=== PATIENT | male | born 1955 | race Caucasian/White ===

== ENCOUNTER → 2017-10-05 | Outpatient (CLI) | payer OTHER ==
[~2017-10-05] MED LIST: DICL50TA3 PO; DICY10CA12 PO; HYDR-3763 PO; LISI-725 PO; MELO7.5T5 PO; PANT40TA PO; TRAM-10 PO
--- NOTE | 2017-10-05 09:42 | DIAGNOSTIC IMAGING REPORT ---
C-SPINE ROUTINE 4 OR 5 VIEWS CLINICAL HISTORY: CERVICALGIA. COMPARISON STUDY: No previous studies for comparison. FINDINGS: There is straightening of the normal cervical lordosis. There is moderate disc space narrowing and osteophytosis at C3-C4. There is mild disc space narrowing at C4-C5. Mild multilevel facet arthrosis is present. Multilevel bony neural foraminal narrowing is most pronounced at the left C3-C4 and C4-C5 neural foramen. No fracture or suspicious lesion is present. IMPRESSION: 1. Moderate degenerative disc disease at C3-C4 and mild degenerative disc disease at C4-C5. 2. Multilevel bony neural foraminal narrowing, most pronounced at the left C3-C4 and C4-C5 neural foramen. Electronically signed by: Ad Lyle M.D. 10/05/2017 9:41 AM Dictated Date/Time: 10/05/2017 9:39 AM
== END | disposition home or self-care (01) ==
LOC: C.RADBC 08:53
PROVIDERS: ATTEND Physician Assistant Medical
DX: M54.2 Cervicalgia (principal); M50.31 Other cervical disc degeneration, high cervical region; M50.321 Other cervical disc degeneration at C4-C5 level; M47.812 Spondylosis without myelopathy or radiculopathy, cervical region

== ENCOUNTER → 2017-12-13 | Day surgery (SDC) | payer OTHER ==
[2017-12-02 12:10] VITALS: Ht 185.4 cm; Wt 86.4 kg
[~2017-12-13] VITALS: Ht 185.4 cm; Wt 86.4 kg
[~2017-12-13] MED LIST changes: -HYDR-3763 PO; +HYDR-4079 PO; +LIDOCAINE HCL 2% 2 ML VIAL (20MG/ML) ONE; -LISI-725 PO; +LSN/2025 PO; -MELO7.5T5 PO; +PRAM0.259 PO; +PROPOFOL IV EMULSION 10 MG/ML 20 ML VIAL IV ONE; +SODIUM CHLORIDE 0.9% 500ML 500 ML IV ONE
--- NOTE | 2017-12-13 08:43 | Endo History and Physical ---
History & Physical Date of Service: Dec 13, 2017. Chief Complaint: HISTORY OF POLYPS-1 YR FOLLOW UP Referring Physician: DR GAUTHIER History of Present Illness 62 yo CM who presents for colonoscopy secondary to history of colon polyps. Past Medical History Arthritis, Reflux, Hypertension Past Surgical History Hx Cardiac Surgery: No Hx Internal Defibrillator: No Hx Pacemaker: No Hx Abdominal Surgery: Yes (INGUINAL HERNIA REPAIR) Hx of Implantable Prosthesis: No Hx Post-Op Nausea and Vomiting: No Hx Cancer Surgery: No Hx Thoracic Surgery: No Hx Orthopedic: Yes (RT KNEE SURGERY) Hx Urinary Tract Surgery: No Family History Colon CA Social History Smoking Status: Current Some Day Smoker Hx Substance Use: No Hx Alcohol Use: Yes (OCCASIONAL) Allergies Coded Allergies: No Known Allergies (Unverified , 12/13/17) Current Medications Reported Home Medications Medications Dose Route/Sig Max Daily Dose Days Date Category Dose Instructions Pramipexole Dihydrochlori (Pramipexole Dihydrochloride) 0.25 Mg Tab 2 Tabs PO HS 12/02/17 Reported Lisinopril/Hctz 20/25 Mg (HCTZ/Lisinopril) 1 Ea Tab 1 Tab PO QAM 12/02/17 Reported [place] 10MG/325MG (Acetaminophen/Hydrocodone Bitart) Tab 1 Tab PO QAM 12/02/17 Reported PRN PAIN Dicyclomine Hcl 10 Mg Cap 1 Cap PO QAM 11/24/16 Reported Protonix (Pantoprazole Sodium) 40 Mg Tab 40 Mg PO QAM 11/24/16 Reported Voltaren (Diclofenac Sodium) 50 Mg Tabec 50 Mg PO QAM 11/24/16 Reported Ultram (Tramadol HCl) 50 Mg Tab 1 Tab PO BID 11/24/16 Reported Vital Signs Weight (Kilograms): 86.36 Height (Feet): 6 Height (Inches): 1 Date Time Temp Pulse Resp B/P (MAP) Pulse Ox O2 Delivery O2 Flow Rate FiO2 12/13/17 08:32 36.5 77 20 138/98 (111) 96 Room Air Physical Exam General Appearance: WD/WN, no apparent distress Respiratory/Chest: Auscultation: breath sounds normal Cardiovascular: Heart Auscultation: RRR Abdomen: Bowel Sounds: normal Inspection & Palpation: soft, non-distended, no tenderness, guarding & rebound Assessment and Plan Assessment: 62 yo CM who presents for colonoscopy secondary to history of colon polyps. Plan: Proceed with colonoscopy.
--- NOTE | 2017-12-13 09:37 | GI REPORT ---
Procedure Date: 12/13/2017 9:00 AM Procedure: Colonoscopy Indications: High risk colon cancer surveillance: Personal history of colonic polyps Medicines: Monitored Anesthesia Care Complications: No immediate complications. Estimated Blood Loss: Estimated blood loss: none. Procedure: Pre-Anesthesia Assessment: - Prior to the procedure, a History and Physical was performed, and patient medications and allergies were reviewed. The patient's tolerance of previous anesthesia was also reviewed. The risks and benefits of the procedure and the sedation options and risks were discussed with the patient. All questions were answered, and informed consent was obtained. Prior Anticoagulants: The patient has taken no previous anticoagulant or antiplatelet agents. ASA Grade Assessment: II - A patient with mild systemic disease. After reviewing the risks and benefits, the patient was deemed in satisfactory condition to undergo the procedure. After I obtained informed consent, the scope was passed under direct vision. Throughout the procedure, the patient's blood pressure, pulse, and oxygen saturations were monitored continuously. The scope was introduced through the anus and advanced to the terminal ileum. The colonoscopy was performed without difficulty. The patient tolerated the procedure well. The quality of the bowel preparation was good. The terminal ileum, ileocecal valve, appendiceal orifice, and rectum were photographed. Findings: The perianal and digital rectal examinations were normal. A 4 mm polyp was found in the ascending colon. The polyp was sessile and located at margin of scar from prior polypectomy site. The polyp was removed with a hot snare. Resection and retrieval were complete. Non-bleeding internal hemorrhoids were found during retroflexion. The hemorrhoids were small. Impression: - One 4 mm polyp in the ascending colon, removed with a hot snare. Resected and retrieved. - Non-bleeding internal hemorrhoids. Recommendation: - Resume previous diet. - Continue present medications. - Repeat colonoscopy for surveillance based on pathology results. - Return to primary care physician as previously scheduled. Abdi Santamaria, 12/13/2017 9:37:37 AM This report has been signed electronically. Note Initiated On: 12/13/2017 9:00 AM I attest to the content of the Intraoperative Record and orders documented therein, exceptions below
--- NOTE | 2017-12-13 09:44 | Anesthesiology Progress Note ---
Anesthesia Post Op Note Date & Time Dec 13, 2017 at 09:44 Vital Signs Pain Intensity: 0 Vital Signs Past 12 Hours Date Time Temp Pulse Resp B/P (MAP) Pulse Ox O2 Delivery O2 Flow Rate FiO2 12/13/17 09:32 87 16 125/77 (93) 97 Room Air 12/13/17 08:32 36.5 77 20 138/98 (111) 96 Room Air Notes Mental Status: alert / awake / arousable, participated in evaluation Pt Amnestic to Procedure: Yes Nausea / Vomiting: adequately controlled Pain: adequately controlled Airway Patency, RR, SpO2: stable & adequate BP & HR: stable & adequate Hydration State: stable & adequate Anesthetic Complications: no major complications apparent
--- NOTE | 2017-12-13 09:45 | Discharge Instructions ---
Endoscopy Patient Instructions Date / Procedure(s) Performed Dec 13, 2017. Colonoscopy Allergy Information Coded Allergies: No Known Allergies (Unverified , 12/13/17) Discharge Date / Findings Dec 13, 2017. Colon polyp Internal hemorrhoids Medication Instructions OK to resume all medication today as prescribed Reported Home Medications Medications Dose Route/Sig Max Daily Dose Days Date Category Dose Instructions Pramipexole Dihydrochlori (Pramipexole Dihydrochloride) 0.25 Mg Tab 2 Tabs PO HS 12/02/17 Reported Lisinopril/Hctz 20/25 Mg (HCTZ/Lisinopril) 1 Ea Tab 1 Tab PO QAM 12/02/17 Reported [place] 10MG/325MG (Acetaminophen/Hydrocodone Bitart) Tab 1 Tab PO QAM 12/02/17 Reported PRN PAIN Dicyclomine Hcl 10 Mg Cap 1 Cap PO QAM 11/24/16 Reported Protonix (Pantoprazole Sodium) 40 Mg Tab 40 Mg PO QAM 11/24/16 Reported Voltaren (Diclofenac Sodium) 50 Mg Tabec 50 Mg PO QAM 11/24/16 Reported Ultram (Tramadol HCl) 50 Mg Tab 1 Tab PO BID 11/24/16 Reported Provider Instructions Activity Restrictions - No exercising or heavy lifting for 24 hours. - Do not drink alcohol the day of the procedure. - Do not drive a car or operate machinery until the day after the procedure. - Do not make any important decisions or sign important papers in 24 hours after the procedure. Following Day: - Return to full activity which may include returning to work/school. Diet Start your diet with liquids and light foods (jello, soup, juice, toast). Then eat your usual diet if not nauseated. Treatment For Common After Affects For mild abdominal pain, bloating, or excessive gas: - Rest - Eat lightly - Lie on right side Follow-Up Information Follow-up with DR GAUTHIER as scheduled Anesthesia Information What You Should Know You have had a procedure that required some medicine to reduce anxiety and discomfort. This treatment is called moderate sedation. After receiving the treatment, you may be sleepy, but you will be able to breathe on your own. The effects of the treatment may last for several hours. Follow these instructions along with Activity/Diet recommendations noted above: * Do NOT do anything where dizziness or clumsiness would be dangerous. * Rest quietly at home today, then you can be up and about tomorrow. * Have a responsible person stay with you the rest of today. * You may have had an I.V. today. If so, you may take the dressing off later today. Recommendations Call your doctor if: * Trouble breathing * Continuous vomiting for more than 24 hours * Temperature above 101 degrees * Severe abdominal pain or bloating * Pain not relieved by pain medicine ordered * There is increased drainage or redness from any incision * A large amount of rectal bleeding greater than 2-3 tablespoons. (If you had a polyp/s removed or have hemorrhoids, a small amount of blood - from the rectum is to be expected.) * You have any unanswered questions or concerns. IN THE EVENT OF A SERIOUS EMERGENCY, GO TO THE NEAREST EMERGENCY ROOM Your discharge instructions were prepared by provider Abdi Santamaria. Patient Instructions Signature Page Norm Cool Patient (or Guardian) Signature/Date: I have read and understand the instructions given to me by my caregivers. Caregiver/RN/Doctor Signature/Date: The above-named patient and/or guardian has received patient instructions on this date. + Original Patient Signature Page (only) stays with chart. Please make copy for patient.
[2017-12-13 10:02] VITALS: BP 140/96; PULSE 69; O2SAT 98
== END | disposition home or self-care (01) ==
LOC: C.GI 08:12
PROVIDERS: ATTEND Internal Medicine
DX: Z12.11 Encounter for screening for malignant neoplasm of colon (principal); D12.2 Benign neoplasm of ascending colon; K64.8 Other hemorrhoids; Z86.010 Personal history of colon polyps; F17.200 Nicotine dependence, unspecified, uncomplicated; M19.90 Unspecified osteoarthritis, unspecified site; K21.9 Gastro-esophageal reflux disease without esophagitis; I10 Essential (primary) hypertension; Z80.0 Family history of malignant neoplasm of digestive organs; Z79.899 Other long term (current) drug therapy

== ENCOUNTER → 2018-01-10 | Outpatient (CLI) | payer OTHER ==
[~2018-01-10] MED LIST changes: -LIDOCAINE HCL 2% 2 ML VIAL (20MG/ML) ONE; -PROPOFOL IV EMULSION 10 MG/ML 20 ML VIAL IV ONE; -SODIUM CHLORIDE 0.9% 500ML 500 ML IV ONE
== END | disposition home or self-care (01) ==
LOC: C.LABSPEC 16:00
PROVIDERS: ATTEND Physician Assistant
DX: R21 Rash and other nonspecific skin eruption (principal); B35.1 Tinea unguium

== ENCOUNTER → 2018-01-18 | Outpatient (CLI) | payer OTHER ==
--- NOTE | 2018-01-18 17:46 | DIAGNOSTIC IMAGING REPORT ---
CERVICAL SPINE MRI HISTORY: CERVICAL RADICULOPATHY TECHNIQUE: Multiplanar multisequence MRI of the cervical spine was performed without the use of contrast. COMPARISON STUDY: Cervical spine 10/05/2017. FINDINGS: Straightening of the cervical spine. 2 mm of retrolisthesis of C3 on C4. Moderate disc space narrowing at C3-C4. Mild disc space narrowing at C4-C5. Vertebral soft tissues and the C1-C2 interval are intact. No fractures within the cervical spine. The visualized posterior fossa is unremarkable. Cervical spinal cord demonstrates a normal signal intensity. C2-C3: No significant central canal or neural foraminal narrowing. C3-C4: Broad-based posterior disc bulge resulting in moderate anterior cord deformity with moderate central canal narrowing. There is also severe left and moderate right neural foraminal narrowing due to the uncovertebral hypertrophy. C4-C5: Small broad-based posterior disc bulge which abuts and slightly deforms anterior cord. There is moderate right and severe left neural foraminal narrowing due to the uncovertebral and facet hypertrophy. C5-C6: Tiny broad-based posterior disc bulge resulting in partial effacement of the anterior thecal sac without cord deformity. No neural foraminal narrowing. C6-C7: No significant central canal or neural foraminal narrowing. C7-T1: No significant central canal or neural foraminal narrowing. IMPRESSION: 1. Moderate central canal narrowing at C3-C4 due to a broad-based posterior disc bulge. This results in moderate cord deformity and severe left and moderate right neural foraminal narrowing. 2. Mild central canal narrowing at C4-C5 with severe left and moderate right neural foraminal narrowing. 3. There is 2 mm of retrolisthesis of C3 on C4. Electronically signed by: Manoj Wilkerson M.D. 01/18/2018 5:45 PM Dictated Date/Time: 01/18/2018 5:35 PM
== END | disposition home or self-care (01) ==
LOC: C.MRIBC 16:21
PROVIDERS: ATTEND Physician Assistant Medical
DX: M54.12 Radiculopathy, cervical region (principal)

== ENCOUNTER 2021-04-02 06:08 | Inpatient (IN) ==
--- NOTE | 2021-03-18 11:45 | PAT Medication Instructions ---
Medication Instructions Date of Service March 18, 2021 Home Medications Medication Instructions Recorded econazole 1 % topical cream 1 appln TOP BID #85 gm 06/10/20 diclofenac sodium 50 mg See Rx Instructions .ROUTE 12/30/20 tablet,delayed release .COMPLEX #60 tab tramadol 50 mg tablet See Rx Instructions .ROUTE 01/23/21 .COMPLEX #90 tab hydrocodone 10 mg-acetaminophen 1 tab PO BID PRN #60 tab 03/14/21 325 mg tablet econazole 1 % topical cream 1 appln TOP BID diclofenac sodium 50 mg tablet,delayed release See Rx Instructions .ROUTE .COMPLEX tramadol 50 mg tablet See Rx Instructions .ROUTE .COMPLEX dicyclomine 10 mg PO QAM finasteride [Proscar] 5 mg PO QAM ketoconazole 1 applic TOPICAL DAILY PRN lisinopril-hydrochlorothiazide 1 tab PO QAM omeprazole 20 mg PO QAM pramipexole 0.25 mg PO HS PRN hydrocodone 10 mg-acetaminophen 325 mg tablet 1 tab PO BID PRN ASK your surgeon for instructions diclofenac sodium 50 mg tablet,delayed release See Rx Instructions .ROUTE .COMPLEX STOP taking 24 hours before surgery econazole 1 % topical cream 1 appln TOP BID ketoconazole 1 applic TOPICAL DAILY PRN DO NOT take the morning of surgery dicyclomine 10 mg PO QAM lisinopril-hydrochlorothiazide 1 tab PO QAM Take morning of surgery With a small sip of water, OTHERWISE NOTHING TO EAT OR DRINK AFTER MIDNIGHT: tramadol 50 mg tablet See Rx Instructions .ROUTE .COMPLEX (okay to take up to 4 hours prior to surgery if needed) finasteride [Proscar] 5 mg PO QAM omeprazole 20 mg PO QAM hydrocodone 10 mg-acetaminophen 325 mg tablet 1 tab PO BID PRN (okay to take up to 4 hours prior to surgery if needed) Take evening before surgery tramadol 50 mg tablet See Rx Instructions .ROUTE .COMPLEX (if needed) pramipexole 0.25 mg PO HS PRN (if needed) hydrocodone 10 mg-acetaminophen 325 mg tablet 1 tab PO BID PRN (if needed) Other Notes If you have any questions please call us at [phone] or [phone] or [phone] or [phone]
--- NOTE | 2021-03-19 10:45 | Anesthesiology Consultation ---
Date of Service March 19, 2021 Assessment & Plan (1) Encounter for pre-operative examination: - COVID screening: Per assessment on 03/19: Travel screen negative, no known COVID-19 positive contacts or current COVID-19 related symptoms. Surgeon arranging preop COVID testing. Awaiting results. - Hx glidescope intubation: C3-C4 ACDF with left iliac crest bone graft (05/23/18): Grade 2 view, Glidescope #4.0, ETT 8.0 at [facility] Chart Review Chart Review: Acceptable Risk for Surgery (pending surgeon-ordered PCP clearance) and Patient seen in Pre Admission Testing Teaching & Discussion Pre-Anesthesia Teaching/Discussion Notes: Instructed NPO after midnight before surgery,except medications with 15 cc of water. Medication instructions provided according to the PAT guidelines. History Surgery Operation Date: 04/02/21 07:45 Proposed Procedures p Spine: L3-L4 Decompession/Fusion;Spinal Cord Monitoring - Logan Arshad DO Height/Weight Height: 6 ft Weight: 82.5 kg Allergies Allergy/AdvReac Type Severity Reaction Status Date / Time No Known Drug Allergies Allergy Verified 03/07/21 11:33 Medications Home Medications Medication Instructions Recorded Confirmed Last Taken econazole 1 % topical cream 1 appln TOP BID #85 gm 06/10/20 03/07/21 Unknown diclofenac sodium 50 mg See Rx Instructions .ROUTE 12/30/20 03/07/21 Unknown tablet,delayed release .COMPLEX #60 tab tramadol 50 mg tablet See Rx Instructions .ROUTE 01/23/21 03/07/21 Unknown .COMPLEX #90 tab dicyclomine 10 mg PO QAM 03/07/21 03/07/21 Unknown finasteride [Proscar] 5 mg PO QAM 03/07/21 03/07/21 Unknown ketoconazole 1 applic TOPICAL DAILY PRN 03/07/21 03/07/21 Unknown lisinopril-hydrochlorothiazide 1 tab PO QAM 03/07/21 03/07/21 Unknown omeprazole 20 mg PO QAM 03/07/21 03/07/21 Unknown pramipexole 0.25 mg PO HS PRN 03/07/21 03/07/21 Unknown hydrocodone 10 mg-acetaminophen 1 tab PO BID PRN #60 tab 03/14/21 Unknown 325 mg tablet Past Medical History Medical History Cervical disc disease GERD (gastroesophageal reflux disease) controlled Hiatal hernia Hypertension Internal hemorrhoids Lumbar radiculitis Lumbar spinal stenosis Osteoarthritis Seborrheic dermatitis Seborrheic keratosis Sleep apnea CPAP Exercise / Class Metabolic Activity II 4-5 Yardwork/Stairs/Walk up hill Past Family History Family History Aunt Family history of diabetes mellitus Uncle Family history of diabetes mellitus Grandmother (Paternal) Family history of diabetes mellitus Grandfather (Paternal) Family history of diabetes mellitus Father Family history of diabetes mellitus Past Surgical History Surgical History History of herniorrhaphy Hx of colonoscopy S/P arthroscopic knee surgery Status post cervical spinal fusion C3-C4 ACDF with left iliac crest bone graft (05/23/18): Grade 2 view, Glidescope #4.0, ETT 8.0 at [facility] Past Anesthesia History Difficult Airway (C3-C4 ACDF with left iliac crest bone graft (05/23/18): Grade 2 view, Glidescope #4.0, ETT 8.0 at [facility]) and No Family Hx of Anesthesia Co mplications History of PONV No Hx of PONV and No Hx of Motion Sickness Social History Smoking Status: Current every day smoker Smoking cigarettes per day: 10 cigs/day (intermittent x 30 years) Do You Dip or Chew Tobacco: No Hx Alcohol Use: No Hx Substance Use: No Review of Systems Patient denies chest pain, shortness of breath, dyspnea on exertion, fever, chills, cough, wheezing, palpitations. Physical Exam Vital Signs VITALS BP 127/74 P 72 TEMP 98.3 SP02 96%RA RESP 16 PHYSICAL Significantly decreased cervical extension range of motion. Full TMJ range of motion. TMD 2.5 finger breaths Mallampati Score 2 Dentition: several missing sides/molars Lungs: clear throughout to auscultation Cardiac: regular rate and rhythm, no murmurs noted Spine: normal Carotid arteries: negative bruit Extremities: no edema Testing Laboratory Results 03/19/21 11:06 03/19/21 11:06 PT 10.3 Seconds (9.0-12.0) 03/19/21 11:06 INR 1.0 (0.9-1.1) 03/19/21 11:06 APTT 27.5 Seconds (21.0-31.0) 03/19/21 11:06 Urine Color Yellow 03/19/21 08:27 Urine Appearance Clear (Clear) 03/19/21 08:27 Urine pH 7.0 (4.5-7.5) 03/19/21 08:27 Ur Specific [place] 1.020 (1.000-1.030) 03/19/21 08:27 Urine Protein Negative (Negative) 03/19/21 08:27 Urine Glucose (UA) Negative (Negative) 03/19/21 08:27 Urine Ketones Trace (Negative) H 03/19/21 08:27 Urine Nitrite Negative (Negative) 03/19/21 08:27 Ur Leukocyte Esterase Negative (Negative) 03/19/21 08:27 Urine RBC 5-10 /hpf (0-4) H 03/19/21 08:27 Urine WBC 0-5 /hpf (0-5) 03/19/21 08:27 Ur Epithelial Cells 0-5 /lpf (0-5) 03/19/21 08:27 Blood Type O Positive 03/19/21 11:06 Antibody Screen NEGATIVE 03/19/21 11:06 Electrocardiogram Date: 03/19/21 Normal sinus rhythm at 62 bpm. Incomplete right bundle branch block. LAFB. No significant change compared to 05/11/2018 per cutting inspector review. Patient r eports good functional status and no cardiopulmonary complaints visit at PAT visit from same day. Chest X-Ray Date: 03/19/21 FINDINGS: PA and lateral chest radiographs are compared to study dated 05/11/2018. The is mildly enlarged. The pulmonary vasculature is noncongested. Emphysematous change and chronic interstitial thickening is similar to previous. No airspace consolidation or pleural effusion is identified. There is no pneumothorax. The bony thorax appears intact. IMPRESSION: Mild cardiomegaly and emphysema with no active disease in the chest.
[2021-03-19 11:37] LABS: Basophils # (auto) 0.03 K/uL (0-0.2); Basophils % (auto) 0.5 %; Eosinophils # (auto) 0.15 K/uL (0-0.5); Eosinophils % (auto) 2.3 %; Hematocrit (blood only) 39.6 % (42-52); Hemoglobin 14.1 g/dL (14.0-18.0); Immature Granulocytes # (auto) 0.01 K/uL (0.00-0.02); Immature Granulocytes % (auto) 0.2 %; Lymphocytes # (auto) 1.92 K/uL (1.2-3.4); Lymphocytes % (auto) 29.8 %; Mean Corpuscular Hemoglobin 31.3 pg (25-34); Mean Corpuscular Hgb Conc 35.6 g/dL (32-36); Mean Platelet Volume 10.8 fL (7.4-10.4); Monocytes # (auto) 0.48 K/uL (0.11-0.59); Monocytes % (auto) 7.5 %; Neutrophils # (auto) 3.85 K/uL (1.4-6.5); Neutrophils % (auto) 59.7 %; Platelet Count 169 K/uL (130-400); RDW Coefficient of Variation 12.8 % (11.5-14.5); RDW Standard Deviation 41.4 fL (36.4-46.3); White Blood Count 6.44 K/uL (4.8-10.8)
[2021-03-19 11:49] LABS: Partial Thromboplastin Time 27.5 Seconds (21.0-31.0); Prothrombin Time 10.3 Seconds (9.0-12.0)
--- NOTE | 2021-03-19 11:59 | XRay Report ---
TWO VIEW CHEST CLINICAL HISTORY: Preoperative examination. Smoking history. FINDINGS: PA and lateral chest radiographs are compared to study dated 05/11/2018. The is mildly enlar ged. The pulmonary vasculature is noncongested. Emphysematous change and chronic interstitial thicken ing is similar to previous. No airspace consolidation or pleural effusion is identified. There is no pneumothorax. The bony thorax appears intact. IMPRESSION: Cardiomegaly and emphysema with no active disease in the chest. ACT 112: Negative or not required by law. Electronically signed by: Lg [place] M.D. 03/19/2021 11:57 AM
--- NOTE | 2021-03-19 12:58 | Electrocardiogram Report ---
Test Reason : Blood Pressure : / mmHG Vent. Rate : 062 BPM Atrial Rate : 062 BPM P-R Int : 204 ms QRS Dur : 112 ms QT Int : 418 ms P-R-T Axes : 067 -67 044 degrees QTc Int : 424 ms Normal sinus rhythm Incomplete right bundle branch block Left anterior fascicular block Abnormal ECG When compared with ECG of 11-MAY-2018 16:47, No significant change was found Confirmed by Jacob Soto ([id number]) on 03/19/2021 12:58:08 PM Referred By: Logan Arshad Confirmed By:Edwardo Soto
[2021-03-19 13:20] LABS: BUN Creatinine Ratio 18.9 (10-20); Calcium 8.8 mg/dl (8.5-10.1); Creatinine Clr Calc Pharmacy 85.1 ml/min; Est GFR (Non-African American) 83.7 ml/min
[2021-03-19 13:30] LABS: Appearance Urine Clear (Clear); Bilirubin Urine Negative (Negative); Blood Urine 1+ (Negative); Color Urine Yellow; Glucose Urine UA Negative (Negative); Ketones Urine Trace (Negative); Leukocyte Esterase Urine Negative (Negative); Nitrite Urine Negative (Negative); Protein Urine Negative (Negative); Urobilinogen Urine Negative (Negative)
[2021-03-19 13:53] LABS: Bacteria Urine 1+ (Negative); Epithelial Cell Urine 0-5 /lpf (0-5); WBC Urine 0-5 /hpf (0-5)
[~2021-04-02 06:08] MED LIST changes: +ACETAMINOPHEN 500 MG TAB PO SCH; +CeleBREX 200 MG CAP PO SCH; -DICL50TA3 PO; -DICY10CA12 PO; +GABAPENTIN 300 MG CAP PO SCH; -HYDR-4079 PO; +LR 15ML/HR IV SCH; -LSN/2025 PO; -PANT40TA PO; -PRAM0.259 PO; -TRAM-10 PO; +ceFAZolin 2000MG 2,000 MG/15 ML SYR IV SCH
[2021-04-02] MEDS ORDERED: BUPIVACAINE/EPINEPHRINE 0.5% MPF 1:200,000 30 ML VIAL ONE (06:53)
[2021-04-02] MEDS ORDERED: MIDAZOLAM HCL 1 MG/ML 2ML VIAL ONE (06:59)
[2021-04-02] MEDS ORDERED: fentaNYL citrate 100 MCG/2 ML VIAL ONE (07:00)
[2021-04-02] MEDS ORDERED: HYDROmorphone INJ 2 MG/ML SYR/VIAL ONE (07:04)
[2021-04-02] MEDS ORDERED: DEXAMETHASONE SOD INJ 4 MG/ML VIAL ONE ×2 (07:05→08:11)
[2021-04-02] MEDS ORDERED: ONDANSETRON INJ 2 MG/ML 2 ML VIAL ONE (07:07)
[2021-04-02] MEDS ORDERED: ROCURONIUM BROMIDE 10 MG/ML 5 ML VIAL IV ONE ×3 (07:07→08:15)
[2021-04-02] MEDS ORDERED: ACETAMINOPHEN 1000 MG/100 ML IV IV ONE (07:09)
--- NOTE | 2021-04-02 07:36 | History & Physical Bridge Note ---
Date of Service April 02, 2021 History & Physical Bridge Note I have examined the patient, reviewed the History & Physical and in the interval since the performance of the History & Physical I have noted the following changes of clinical significance: no changes noted
--- NOTE | 2021-04-02 07:37 | History & Physical Report ---
Date of Service April 02, 2021 Assessment & Plan (1) Lumbar spinal stenosis: Admission and Anticipated Discharge Date Admission Date: L3-L4 decompression fusion History of Present Illness Chief Complaint: Back and leg pain Primary Care Provider: Burtno Nolasco MD This is a 65-year-old male presents with chronic persistent back and leg pain. Failing extensive course of nonoperative care is here for surgical invention. Allergies Allergy/AdvReac Type Severity Reaction Status Date / Time No Known Drug Allergies Allergy Verified 04/02/21 07:01 Home Medications Medication Instructions Recorded Confirmed Type econazole 1 % topical cream 1 appln TOP BID #85 gm 06/10/20 04/02/21 Rx diclofenac sodium 50 mg See Rx Instructions .ROUTE 12/30/20 04/02/21 Rx tablet,delayed release .COMPLEX #60 tab tramadol 50 mg tablet See Rx Instructions .ROUTE 01/23/21 04/02/21 Rx .COMPLEX #90 tab dicyclomine 10 mg PO QAM 03/07/21 04/02/21 History finasteride [Proscar] 5 mg PO QAM 03/07/21 04/02/21 History ketoconazole 1 applic TOPICAL DAILY PRN 03/07/21 04/02/21 History lisinopril-hydrochlorothiazide 1 tab PO QAM 03/07/21 04/02/21 History [Zestoretic] omeprazole 20 mg PO QAM 03/07/21 04/02/21 History pramipexole [Mirapex] 0.25 mg PO HS PRN 03/07/21 04/02/21 History hydrocodone 10 mg-acetaminophen 1 tab PO BID PRN #60 tab 03/14/21 04/02/21 Rx 325 mg tablet ofloxacin 0.3 % ear drops 5 drp OTIC (EAR) BID 10 Days #10 ml 03/24/21 04/02/21 Rx Tums 1 tab PO DAILY 04/02/21 04/02/21 History Past Med/Surg History Medical History Cervical disc disease GERD (gastroesophageal reflux disease) Hiatal hernia Hypertension Internal hemorrhoids Lumbar radiculitis Lumbar spinal stenosis Osteoarthritis Seborrheic dermatitis Seborrheic keratosis Sleep apnea Surgical History History of herniorrhaphy Hx of colonoscopy S/P arthroscopic knee surgery Status post cervical spinal fusion Family History Aunt Family history of diabetes mellitus Uncle Family history of diabetes mellitus Grandmother (Paternal) Family history of diabetes mellitus Grandfather (Paternal) Family history of diabetes mellitus Father Family history of diabetes mellitus Social History Smoking Status: Current every day smoker Cigarettes Per Day: 10 cigs/day (intermittent x 30 years); Second Hand Exposure: Yes (FAMILY ALL SMOKED); Do You Dip or Chew Tobacco: No; Hx Alcohol Use: No Hx Substance Use: No Preferred Language: Micronesian Communication Ability: Effective Utility Technician Required: No Beliefs That Will Affect Care: None marital status: Current Living Situation: Spouse current occupational status: employed Other Information That Helps Us Care for You: No Feels Safe at Home: Yes Safety Concerns: Feels Safe At This Time Assistive Devices: CPAP and Glasses Physical Exam Physical Exam: Patient is alert and oriented Heart regular in rhythm Lungs clear to auscultation Results & Data ([facility]) Vital Signs (Past 12 Hours) Vital Signs Temp Pulse Resp BP Pulse Ox 04/02/21 07:11 36.7 C 72 20 165/97 H 97
[2021-04-02] MEDS ORDERED: ePHEDrine sulfate 50 MG/ML AMP IV PRN (07:38)
[2021-04-02] MEDS ORDERED: PROMETHAZINE HCL 12.5 MG in SODIUM CHLORIDE 0.9% 50 ML IV PRN ×2 (07:38→11:31)
[2021-04-02] MEDS ORDERED: METOCLOPRAMIDE HCL INJ 5 MG/ML 2 ML VIAL IV PRN ×2 (07:38→11:31)
[2021-04-02] MEDS ORDERED: ONDANSETRON INJ 2 MG/ML 2 ML VIAL IV PRN ×2 (07:38→11:31)
[2021-04-02] MEDS ORDERED: ATROPINE SULFATE 0.1 MG/ML 10ML SYR IV PRN (07:38)
[2021-04-02] MEDS ORDERED: WATER, STERILE FOR INJ 10 ML VIAL ONE (08:17)
[2021-04-02] MEDS ORDERED: PHENYLEPHRINE 100MCG/ML 5ML SYR ONE (08:26)
[2021-04-02] MEDS ORDERED: KETOROLAC 30 MG/ML VIAL ONE (09:01)
[2021-04-02] MEDS ORDERED: NEOSTIGMINE METHYLSULFATE 1 MG/ML 10ML VIAL ONE (09:01)
[2021-04-02] MEDS ORDERED: GLYCOPYRROLATE 0.2 MG/ML VIAL ONE (09:01)
[2021-04-02] MEDS ORDERED: FLOSEAL HEMOSTATIC MATRIX 10ML TOP ONE (09:24)
--- NOTE | 2021-04-02 09:35 | Operative Report ---
Post Operative Report Pre & Post Diagnosis Operation Date: 04/02/21 07:45 Pre-Op Diagnosis: Lumbar spinal stenosis Post-Op Diagnosis: Lumbar spinal stenosis I identified the patient and participated in the time-out.: Yes Procedure Operation Date: 04/02/21 07:45 Actual Procedures #1 lumbar decompression with bilateral medial facetectomies and foraminotomies L2-3 and L3-4. #2 posterior spinal fusion L3-L4. #3 placed posterior instrumentation L3-L4. #4 interbody fusion L3-L4. #5 placement peek cage 10 x 26 mm L3-L4. #6 placement locally harvested morselized autograft in the posterior lateral gutters. #7 placement of I factor and vitoss in the interbody space and posterior lateral gutters. Surgeon Logan Arshad DO Draw In Hand Bhakti Dumont Estimated Blood Loss 200 Findings Consistent with Post-Op Diagnosis Specimens None Indications This is a 65-year-old male who presents with above-mentioned diagnosis after failing course of nonoperative care is here for surgical invention. Description of Procedure Patient was met with identified informed consent obtained. Patient was then taken to the operative suite underwent an patient placed in a prone position the Neri table atop Tigre frame. All bony prominences well-padded eyes inspected to ensure no external pressure placed upon them. This point the lumbar spine was prepped and draped in normal sterile fashion. Sharp dissection with the assistance of Bovie cautery was performed down to and exposing the la mehdi and transverse processes of L3-L4 bilaterally. From caudal to cephalad fashion complete laminectomy of L3 partial laminectomy of L2 was performed including bilateral medial facetectomies and foraminotomies. There is severe stenosis on the L3-4 level on the left with marked disc material out into the foramen. This was removed in its entirety. Pedicle screws were then placed in all 3 L4 bilaterally with assistance of fluoroscopy and the proper sized sandeep placed. By way of a transforaminal portion left complete discectomy was performed endplates curetted to subcortically bone and a 10 x 26 mm peek cage filled with I factor tapped in position. The rods were then locked in final position bilaterally. The transverse processes of L3 and L4 burred to subcortical leading bone. Infuse collagen sponge master graft and local autograft was placed in the posterior lateral gutters. 15 round TRISHA drain inserted. The incision was then closed with 1 Vicryl in the fascia 2-0 Vicryl subcutaneously and 4 Monocryl for final skin closure. Steri-Strip sterile dressings placed. Patient will continue PACU stable condition. Please note spinal cord monitoring was utilized at the procedure no changes noted. Lastly Bhakti Dumont was present at the entire surgery involved the patient positioning complex portions of the surgery and final skin closure. I attest to the content of the Intraoperative Record and any orders documented therein. Any exceptions are noted below.
[2021-04-02] MEDS ORDERED: MEPERIDINE HCL 50 MG/ML CARP ONE (09:50)
[2021-04-02] MEDS: fentaNYL citrate 100 MCG/2 ML VIAL IV PRN ×4 (10:01→10:25)
--- NOTE | 2021-04-02 10:19 | Fluoroscopy Report ---
FL lumbar spine 2-3V HISTORY: 65 years-old Male L3-L4 Decompression/Fusion COMPARISON: Lumbar spine MRI 10/23/2020 TECHNIQUE: 2 spot fluoroscopic images of the lumbar spine were obtained utilizing 23.3 seconds fluoro scopy time FINDINGS: Laminectomy with posterior interbody sandeep and screw fusion and discectomy of the mid lumbar spine, exa ct numbering is not definitive secondary to magnification of the images. The study is labeled that th e surgery was performed at the L3-L4 level. The hardware appears intact. Multilevel intervertebral di sc space narrowing with spondylitic spurring. IMPRESSION: Fluoroscopic assistance as above. ACT 112: Negative or not required by law. The above report was generated using voice recognition software. It may contain grammatical, syntax o r spelling errors. Electronically signed by: Calderon Reynolds M.D. 04/02/2021 10:18 AM
[2021-04-02] MEDS: HYDROmorphone INJ 2 MG/ML SYR/VIAL IV PRN ×4 (10:30→10:50)
[2021-04-02] MEDS ORDERED: MEPERIDINE HCL 25 MG/ML CARP/VIAL IV PRN (10:53)
[2021-04-02] MEDS ORDERED: PRAMIPEXOLE DIHYDROCHLO 0.25 MG TAB PO PRN (11:31)
[2021-04-02] MEDS ORDERED: DO NOT ADMINISTER FLU VACCINE PRN (11:31)
[2021-04-02] MEDS ORDERED: HYDROmorphone INJ 0.5 MG/0.5 ML SYR IV PRN (11:31)
[2021-04-02] MEDS ORDERED: traMADol HCL 50 MG TABLET PO PRN (11:31)
[2021-04-02] MEDS ORDERED: HYDROmorphone INJ 1 MG/ML SYRINGE IV PRN (11:31)
[2021-04-02] MEDS ORDERED: NALOXONE HCL 0.4 MG/1 ML VIAL/CARP IV PRN (11:31)
[2021-04-02] MEDS ORDERED: diphenhydrAMINE Capsule 25 MG CAP PO PRN (11:31)
[2021-04-02] MEDS ORDERED: hydrOXYzine HCl 25 MG TAB PO PRN (11:31)
[2021-04-02] MEDS ORDERED: LACTATED RINGER'S 1,000 ML IV SCH (11:31)
[2021-04-02] MEDS ORDERED: SOD PHOSPHATE/SOD BIPHOSPHATE ENEMA 132 ML BTL PR PRN (11:31)
[2021-04-02] MEDS ORDERED: ONDANSETRON 4 MG OD TAB PO PRN (11:31)
[2021-04-02] MEDS ORDERED: ACETAMINOPHEN 1,000 MG/100 ML VIAL IV PRN (11:31)
[2021-04-02] MEDS ORDERED: LORazepam 0.5 MG TAB PO PRN (11:31)
[2021-04-02] MEDS ORDERED: DO NOT ADMINISTER PNEUMOCOCCAL VACCINE PRN (11:31)
[2021-04-02] MEDS ORDERED: ACETAMINOPHEN 500 MG TAB PO PRN (11:31)
[2021-04-02] MEDS ORDERED: LORazepam 0.5 MG/1 ML VIAL IV PRN (11:31)
[2021-04-02] MEDS ORDERED: FAMOTIDINE 20 MG TAB PO PRN (11:31)
[2021-04-02] MEDS ORDERED: MAGNESIUM HYDROXIDE SUSP 30 ML UDC PO PRN (11:31)
--- NOTE | 2021-04-02 11:37 | Anesthesiology Progress Note ---
Date of Service April 02, 2021 Anesthesia Post Procedure Vital Signs Vital Signs: Temp Pulse Pulse Resp BP BP Pulse Ox 04/02/21 11:30 36.8 C 68 16 103/58 L 97 04/02/21 11:10 69 14 105/63 97 04/02/21 11:00 36.5 C 63 14 115/78 98 04/02/21 10:50 69 14 118/74 96 04/02/21 10:40 66 14 115/79 97 04/02/21 10:30 72 14 121/80 96 04/02/21 10:20 70 14 119/87 96 04/02/21 10:10 67 14 137/84 96 04/02/21 10:00 73 20 127/84 97 04/02/21 09:51 36.2 C L 74 20 155/97 H 97 04/02/21 07:11 36.7 C 72 20 165/97 H 97 Pain Intensity Back: Pain Intensity: 5 Transfer of Care Handoff Completed per policy Notes Mental Status: alert / awake / arousable and participated in evaluation Patient Amnestic to Procedure: Yes Nausea / Vomiting: adequately controlled Pain: adequately controlled Airway Patency, RR, SpO2: stable & adequate BP & HR: stable & adequate Hydration State: stable & adequate Anesthetic Complications: no major complications apparent
[2021-04-02] MEDS: KETOROLAC TROMETHAMINE 15 MG/ML VIAL IV SCH ×2 (13:43→19:36)
[2021-04-02] MEDS: ALUMINUM/MAGNESIUM SUSP 30 ML UDC PO PRN (14:19)
[2021-04-02] MEDS: ceFAZolin 2000MG 2,000 MG/15 ML SYR IV SCH (16:07)
--- NOTE | 2021-04-02 17:17 | Hospitalist Consultation ---
Date of Consultation April 02, 2021 Assessment & Plan (1) Lumbar spinal stenosis: Norm Cool is a 65yo male with PMHx significant for ARIANA (on home CPAP), HTN (on Lisinopril-HCTZ), RLS/circadian rhythm sleep disorder (on Pramipexole and Dicyclomine), BPH, IBS and lumbar spinal stenosis (previously on several narcotic pain medications at home) who is s/p L3-L4 decompression-fusion surgery by Dr. Arshad today. Hospitalists were consulted for medical management following spinal surgery. Lumbar Spinal Stenosis, s/p L3-L4 D/F on 04/02 Patient currently several hours out from surgery and is doing well, hemodynamically stable on room air without problems. - recommend continued PRN pain regimen as ordered by primary team - PRN constipation regimen per primary team - post-operative anti-emetic regimen per primary team - perioperative antibiotic prophylaxis with Cephazolin per primary team - agree with ANDRÉS/SCDs for DVT ppx, as patient has Caprini score of 4 (moderate risk) - patient was counseled on regular use of incentive spirometry and having SCDs in place while lying in bed - PT/OT evals as ordered - disposition planning per primary team HTN - continue with home Lisinopril/HCTZ 20/25mg PO QAM ARIANA - home CPAP QHS RLS/Circadian Rhythm Sleep Disorder - continue home Pramipexole BPH - continue home Finasteride GERD - continue Protonix per hospital formulary FEN/GI: regular diet DVT Prophylaxis: ANDRÉS/SCDs, pharmacologic ppx not indicated at this time Code Status: Full code Disposition: med/surg, disposition plan per primary team Thank you for the consult. We will continue to follow along with you. (2) Hypertension: (3) BPH (benign prostatic hyperplasia): (4) Restless legs syndrome: (5) ARIANA (obstructive sleep apnea): (6) Irritable bowel syndrome: (7) Osteoarthritis: (8) Circadian rhythm sleep disorder, advanced sleep phase type: Supervising Physician Co-Signing Physician Notes Attending addendum: I have physically seen this patient, have supervised the medical residents activities, and agree with the H&P unless as otherwise noted. Assessment and Plan: Lumbar spinal stenosis/status post L3-L4 D/F on 04/02- Stable postoperatively Pain management, antiemetic regimen per primary team Continue cefazolin antibiotic prophylaxis Other management as noted Hypertension- Continue lisinopril/HCTZ 20/25 every morning. Follow BMP in the event of fluid shifts affecting renal function ARIANA- CPAP at bedtime BPH Continue finasteride GERD- Pantoprazole RLS- Continue pramipexole We will follow during hospital stay History of Present Illness Reason for Consultation: medical management Requesting Physician: Dr. Arshad Attending Physician: Logan Arshad, DO History of Present Illness Norm Cool is a 65yo male with PMHx significant for CPAP (on home CPAP), HTN (on Lisinopril-HCTZ), RLS/circadian rhythm sleep disorder (on Pramipexole and Dicyclomine), BPH, IBS and lumbar spinal stenosis (previously on several narcotic pain medications at home) who is s/p L3-L4 decompression-fusion surgery by Dr. Arshad today. Hospitalists were consulted for medical management after surgery. Mr. Cool was weaned off of supplemental oxygen immediately after surgery, has been ambulating (using walker) without pain, and is hemodynamically stable without any concerns or issues. Denies fever/chills, chest pain, palpitations, SOB, cough, nausea/vomiting, abdominal pain, rash. Allergies Allergy/AdvReac Type Severity Reaction Status Date / Time No Known Drug Allergies Allergy Verified 04/02/21 07:01 Home Medications Medication Instructions Recorded Confirmed Type econazole 1 % topical cream 1 appln TOP BID #85 gm 06/10/20 04/02/21 Rx tramadol 50 mg tablet See Rx Instructions .ROUTE 01/23/21 04/02/21 Rx .COMPLEX #90 tab dicyclomine 10 mg PO QAM 03/07/21 04/02/21 History finasteride [Proscar] 5 mg PO QAM 03/07/21 04/02/21 History ketoconazole 1 applic TOPICAL DAILY PRN 03/07/21 04/02/21 History omeprazole 20 mg PO QAM 03/07/21 04/02/21 History pramipexole [Mirapex] 0.25 mg PO HS PRN 03/07/21 04/02/21 History hydrocodone 10 mg-acetaminophen 1 tab PO BID PRN #60 tab 03/14/21 04/02/21 Rx 325 mg tablet ofloxacin 0.3 % ear drops 5 drp OTIC (EAR) BID 10 Days #10 ml 03/24/21 04/02/21 Rx Tums 1 tab PO DAILY 04/02/21 04/02/21 History oxycodone 5 mg PO Q6H PRN #30 tab 04/02/21 Rx tramadol 50 mg PO Q6H PRN #30 tab 04/02/21 Rx lisinopril 40 mg PO DAILY #30 tab 04/04/21 Rx Patient History Medical History (Updated 04/03/21 @ 17:13 by Pratima Valderrama MD) Cervical disc disease GERD (gastroesophageal reflux disease) controlled Hiatal hernia Hypertension Internal hemorrhoids Lumbar radiculitis Lumbar spinal stenosis Osteoarthritis Seborrheic dermatitis Seborrheic keratosis Sleep apnea CPAP Surgical History (Updated 04/03/21 @ 17:13 by Pratima Valderrama MD) History of herniorrhaphy Hx of colonoscopy S/P arthroscopic knee surgery S/P lumbar fusion Status post cervical spinal fusion C3-C4 ACDF with left iliac crest bone graft (05/23/18): Grade 2 view, Glidescope #4.0, ETT 8.0 at [facility] Family History Aunt Family history of diabetes mellitus Uncle Family history of diabetes mellitus Grandmother (Paternal) Family history of diabetes mellitus Grandfather (Paternal) Family history of diabetes mellitus Father Family history of diabetes mellitus Social History Smoking Status: Current every day smoker Cigarettes Per Day: 10 cigs/day (intermittent x 30 years); Second Hand Exposure: Yes (FAMILY ALL SMOKED); Do You Dip or Chew Tobacco: No; Hx Alcohol Use: No Hx Substance Use: No Preferred Language: Bangladeshi Communication Ability: Effective Product Management Consultant Required: No Beliefs That Will Affect Care: None marital status: Current Living Situation: Spouse current occupational status: employed Other Information That Helps Us Care for You: No Feels Safe at Home: Yes Safety Concerns: Feels Safe At This Time Assistive Devices: Walker Review of Systems Review of Systems: All systems reviewed & are unremarkable except as noted in HPI & below Physical Exam Constitutional: WD/WN, vitals as above Respiratory: normal respiratory effort, lungs clear to auscultation Cardiovascular: RRR, no murmur, no edema Gastrointestinal (Abdomen): normal bowel sounds, soft, nontender, no hepato splenomegaly Skin: no rashes, warm and dry Psychiatric: A+Ox3, euthymic affect Results & Data Results & Data ([facility]) Vital Signs (Past 12 Hours) Vital Signs Temp Pulse Pulse Resp BP BP Pulse Ox 04/02/21 14:26 82 16 114/77 98 04/02/21 13:33 76 16 101/62 97 04/02/21 12:25 37.0 C 78 16 97/54 L 96 04/02/21 12:00 36.9 C 68 16 104/66 97 04/02/21 11:30 36.8 C 68 16 103/58 L 97 04/02/21 11:10 69 14 105/63 97 04/02/21 11:00 36.5 C 63 14 115/78 98 04/02/21 10:50 69 14 118/74 96 04/02/21 10:40 66 14 115/79 97 04/02/21 10:30 72 14 121/80 96 04/02/21 10:20 70 14 119/87 96 04/02/21 10:10 67 14 137/84 96 04/02/21 10:00 73 20 127/84 97 04/02/21 09:51 36.2 C L 74 20 155/97 H 97 04/02/21 07:11 36.7 C 72 20 165/97 H 97 Resident Activity Tracking Resident Involvement: Resident Care Provided Care Provided: Adult Hospital Medicine
[2021-04-02] MEDS: OFLOXACIN 0.3% OP SOLN 5 ML BTL OT SCH (19:45)
[2021-04-02] MEDS: DOCUSATE SODIUM/SENNA 50/8.6MG TAB PO SCH (19:45)
[2021-04-02] MEDS: FINASTERIDE 5 MG TAB PO SCH (19:46)
[2021-04-02] MEDS ORDERED: ECONAZOLE NITRATE 1% CRM 15 GM TUBE TOP SCH (21:00)
[2021-04-03] MEDS: oxyCODONE HCL IR 5 MG TAB (IMMEDIATE RELEASE) PO PRN (00:07)
[2021-04-03] MEDS: ceFAZolin 2000MG 2,000 MG/15 ML SYR IV SCH (00:09)
[2021-04-03] MEDS: KETOROLAC TROMETHAMINE 15 MG/ML VIAL IV SCH ×2 (02:44→08:24)
[2021-04-03] MEDS: ALUMINUM/MAGNESIUM SUSP 30 ML UDC PO PRN (02:44)
[2021-04-03] MEDS: POLYETHYLENE (MIRALAX) 17 GM PACK PO SCH ×4 (06:30→23:08)
[2021-04-03 06:33] LABS: Basophils # (auto) 0.01 K/uL (0-0.2); Basophils % (auto) 0.1 %; Eosinophils # (auto) 0.05 K/uL (0-0.5); Eosinophils % (auto) 0.5 %; Hematocrit (blood only) 32.2 % (42-52); Hemoglobin 11.3 g/dL (14.0-18.0); Immature Granulocytes # (auto) 0.02 K/uL (0.00-0.02); Immature Granulocytes % (auto) 0.2 %; Lymphocytes # (auto) 1.98 K/uL (1.2-3.4); Lymphocytes % (auto) 18.8 %; Mean Corpuscular Hemoglobin 30.8 pg (25-34); Mean Corpuscular Hgb Conc 35.1 g/dL (32-36); Mean Corpuscular Volume 87.7 fL (80-100); Mean Platelet Volume 10.9 fL (7.4-10.4); Monocytes # (auto) 1.05 K/uL (0.11-0.59); Neutrophils # (auto) 7.42 K/uL (1.4-6.5); Neutrophils % (auto) 70.4 %; Platelet Count 158 K/uL (130-400); RDW Coefficient of Variation 12.8 % (11.5-14.5); RDW Standard Deviation 41.4 fL (36.4-46.3); Red Blood Count 3.67 M/uL (4.7-6.1); White Blood Count 10.53 K/uL (4.8-10.8)
[2021-04-03 07:03] LABS: BUN Creatinine Ratio 24.5 (10-20); Calcium 8.4 mg/dl (8.5-10.1); Est GFR (African American) 98.2 ml/min; Est GFR (Non-African American) 84.7 ml/min; Potassium 3.6 mmol/L (3.5-5.1)
--- NOTE | 2021-04-03 08:22 | Orthopedic Progress Note ---
Date of Service April 03, 2021 Assessment & Plan (1) Lumbar spinal stenosis: Admission and Anticipated Discharge Date Admission Date: April 02, 2021 This time we will initiate physical therapy monitor his TRISHA output anticipate discharge home in the next few days. Subjective Back pain controlled leg symptoms markedly improved. Physical Exam Physical Exam: Patient is comfortable. Patient is good strength testing. Results & Data ([facility]) Vital Signs (Past 12 Hours) Vital Signs Temp Pulse Resp BP Pulse Ox 04/03/21 07:42 36.5 C 19 154/99 H 96 04/03/21 03:07 36.2 C L 70 16 132/80 93 04/02/21 23:08 36.7 C 80 16 117/67 97
[2021-04-03] MEDS: DICYCLOMINE HCL 10 MG CAP PO SCH (08:25)
[2021-04-03] MEDS: OFLOXACIN 0.3% OP SOLN 5 ML BTL OT SCH ×3 (08:25→20:04)
[2021-04-03] MEDS: PANTOprazole 40 MG TAB PO SCH (08:25)
[2021-04-03] MEDS: FINASTERIDE 5 MG TAB PO SCH (08:54)
[2021-04-03] MEDS: dexAMETHasone 8 MG in SYRINGE 0 ML IV SCH (08:54)
[2021-04-03] MEDS ORDERED: LISINOPRIL/HCTZ 20/25MG 1 TAB PO SCH (09:00)
--- NOTE | 2021-04-03 17:09 | Hospitalist Progress Note ---
Date of Service April 03, 2021 Assessment & Plan (1) S/P lumbar fusion: Norm Cool is a 65yo male with PMHx significant for ARIANA (on home CPAP), HTN (on Lisinopril-HCTZ), RLS/circadian rhythm sleep disorder (on Pramipexole and Dicyclomine), BPH, IBS and lumbar spinal stenosis (previously on several narcotic pain medications at home) who is s/p L3-L4 decompression-fusion surgery by Dr. Arshad today. Hospitalists were consulted for medical management following spinal surgery. Lumbar Spinal Stenosis, s/p L3-L4 D/F on 04/02 doing well post-op, some pain in lower back iva po, no N/V With hgb drop slightly to 11.3 from 14 pre-op Acute blood loss anemia Hemodynamically stable TRISHA drain in place Urinating on own, no BM yet - continued PRN pain regimen as ordered by primary team - PRN constipation regimen per primary team - post-operative anti-emetic regimen per primary team - perioperative antibiotic prophylaxis with Cephazolin per primary team was given -continue IV decadron -ANDRÉS/SCDs for DVT ppx - patient was counseled on regular use of incentive spirometry and having SCDs in place while lying in bed - PT/OT evals as ordered - disposition planning per primary team (2) Hyponatremia: Na+ 133 on preop labs and now 130, probably from HCTZ and some mild dehydration from being NPO for surgery Asymptomatic -hold HCTZ from home received IVFs post-op encourage po fluid and solute intake follow BMP in AM (3) ARIANA (obstructive sleep apnea): declines hospital CPAP and does not have home one (4) Restless legs syndrome: continue home mirapex (5) Irritable bowel syndrome: no acute issues (6) BPH (benign prostatic hyperplasia): continue finasteride, no urine retention (7) Hypertension: hold HCTZ as above continue lisinopril BPs controlled (8) GERD (gastroesophageal reflux disease): continue PPI (9) DVT prophylaxis: FEN/GI: regular diet DVT Prophylaxis: ANDRÉS/SCDs, pharmacologic ppx not indicated at this time Code Status: Full code Disposition: med/surg, disposition plan per primary team Thank you for the consult. We will continue to follow along with you. Admission and Anticipated Discharge Date Admission Date: April 02, 2021 Subjective Pt has some pain in lower back but no more LE limb pain. Denies headache or lightheadedness, no CP or SOB, no abd pain, no nausea. He is passing flatus and urine but no BM yet. Is OOB to chair. Is really anting to be discharged tomorrow. Review of Systems Review of Systems: All systems reviewed & are unremarkable except as noted in HPI & below Physical Exam Constitutional: WD/WN, vitals as above Eyes: + anicteric sclerae Neck: trachea midline, no thyromegaly Respiratory: normal respiratory effort, lungs clear to auscultation Cardiovascular: RRR, no murmur, no edema Chest (Breasts): Chest: normal inspection of chest Gastrointestinal (Abdomen): normal bowel sounds, soft, nontender, no hepatosplenomegaly Musculoskeletal: Extremities: extremities normal to inspection; no cyanosis and no clubbing Skin: no rashes, warm and dry Neurologic: moves all extremities and awake; no focal motor deficits Psychiatric: A+Ox3, euthymic affect Lymphatic: no lymphedema Results & Data Results & Data ([facility]) Vital Signs (Past 12 Hours) Vital Signs Temp Resp BP Pulse Ox 04/03/21 15:08 36.5 C 18 127/79 97 04/03/21 07:42 36.5 C 19 154/99 H 96 Laboratory Results 04/03/21 04/03/21 Range/Units 06:04 06:04 WBC 10.53 (4.8-10.8) K/uL RBC 3.67 L (4.7-6.1) M/uL Hgb 11.3 L (14.0-18.0) g/dL Hct 32.2 L (42-52) % MCV 87.7 (80-100) fL MCH 30.8 (25-34) pg MCHC 35.1 (32-36) g/dL RDW Std Deviation 41.4 (36.4-46.3) fL RDW Coeff of Jose 12.8 (11.5-14.5) % Plt Count 158 (130-400) K/uL MPV 10.9 H (7.4-10.4) fL Immature Gran % (Auto) 0.2 % Neut % (Auto) 70.4 % Lymph % (Auto) 18.8 % Cook % (Auto) 10.0 % Eos % (Auto) 0.5 % Baso % (Auto) 0.1 % Neut # (Auto) 7.42 H (1.4-6.5) K/uL Lymph # (Auto) 1.98 (1.2-3.4) K/uL Cook # (Auto) 1.05 H (0.11-0.59) K/uL Eos # (Auto) 0.05 (0-0.5) K/uL Baso # (Auto) 0.01 (0-0.2) K/uL Immature Gran # (Auto) 0.02 (0.00-0.02) K/uL Sodium 130 L (136-145) mmol/L Potassium 3.6 (3.5-5.1) mmol/L Chloride 97 L (98-107) mmol/L Carbon Dioxide 27 (21-32) mmol/L Anion Gap 5.0 (3-11) BUN 23 H (7-18) mg/dl Creatinine 0.94 (0.6-1.4) mg/dl Est Cr Clr Drug Dosing 86.0 ml/min Est GFR ( Amer) 98.2 ml/min Est GFR (Non-Af Amer) 84.7 ml/min BUN/Creatinine Ratio 24.5 H (10-20) Glucose 101 H (70-99) mg/dl Calcium 8.4 L (8.5-10.1) mg/dl PG Care Time/CCT Total # of Minutes Spent Total Time Spent with Patient: Total time spent is greater than 50% in coordination of care (as documented) at patient's floor/unit and/or counseling patient: Coding Level of Care Code 88226 Subseq Hosp Care Lvl 2 Diagnoses S/P lumbar fusion Z98.1 Hyponatremia E87.1 ARIANA (obstructive sleep apnea) G47.33 Restless legs syndrome G25.81 Irritable bowel syndrome K58.9 BPH (benign prostatic hyperplasia) N40.0 Hypertension I10 GERD (gastroesophageal reflux disease) K21.9 DVT prophylaxis Z29.9
[2021-04-03] MEDS: DOCUSATE SODIUM/SENNA 50/8.6MG TAB PO SCH (20:03)
[2021-04-04] MEDS: oxyCODONE HCL IR 5 MG TAB (IMMEDIATE RELEASE) PO PRN (01:05)
[2021-04-04] MEDS: POLYETHYLENE (MIRALAX) 17 GM PACK PO SCH ×2 (05:31→11:19)
[2021-04-04 06:06] LABS: Basophils # (auto) 0.01 K/uL (0-0.2); Basophils % (auto) 0.1 %; Eosinophils # (auto) 0.06 K/uL (0-0.5); Eosinophils % (auto) 0.6 %; Hematocrit (blood only) 35.3 % (42-52); Hemoglobin 12.4 g/dL (14.0-18.0); Immature Granulocytes # (auto) 0.01 K/uL (0.00-0.02); Immature Granulocytes % (auto) 0.1 %; Lymphocytes % (auto) 22.8 %; Mean Corpuscular Hgb Conc 35.1 g/dL (32-36); Mean Corpuscular Volume 88.3 fL (80-100); Mean Platelet Volume 10.8 fL (7.4-10.4); Monocytes # (auto) 0.88 K/uL (0.11-0.59); Monocytes % (auto) 9.1 %; Neutrophils # (auto) 6.48 K/uL (1.4-6.5); Neutrophils % (auto) 67.3 %; Platelet Count 180 K/uL (130-400); RDW Coefficient of Variation 12.9 % (11.5-14.5); RDW Standard Deviation 41.8 fL (36.4-46.3); White Blood Count 9.64 K/uL (4.8-10.8)
[2021-04-04 06:40] LABS: BUN Creatinine Ratio 18.4 (10-20); Calcium 8.6 mg/dl (8.5-10.1); Creatinine Clr Calc Pharmacy 96.2 ml/min; Est GFR (African American) 106.5 ml/min; Est GFR (Non-African American) 91.9 ml/min; Potassium 3.9 mmol/L (3.5-5.1)
[2021-04-04] MEDS: FINASTERIDE 5 MG TAB PO SCH (08:42)
[2021-04-04] MEDS: OFLOXACIN 0.3% OP SOLN 5 ML BTL OT SCH (08:42)
[2021-04-04] MEDS: DICYCLOMINE HCL 10 MG CAP PO SCH (08:42)
[2021-04-04] MEDS: PANTOprazole 40 MG TAB PO SCH (08:42)
[2021-04-04] MEDS: dexAMETHasone 8 MG in SYRINGE 0 ML IV SCH (08:43)
[2021-04-04] MEDS ORDERED: lisinopril 20 MG TAB PO SCH (09:00)
[2021-04-04] MEDS ORDERED: bisacodyL 10 MG SUPP PR PRN (09:42)
--- NOTE | 2021-04-04 11:11 | Discharge Summary ---
Date of Service April 04, 2021 Admission HPI Per Admitting Provider This is a 65-year-old male presents with chronic persistent back and leg pain. Failing extensive course of nonoperative care is here for surgical invention. Principal Diagnosis Lumbar spinal stenosis with radiculopathy Discharge Data Allergies Allergy/AdvReac Type Severity Reaction Status Date / Time No Known Drug Allergies Allergy Verified 04/02/21 07:01 Consultations 04/02/21 11:31 Consult Hospitalist Routine Procedures Performed Operation Date: 04/02/21 07:45 Actual Procedures p Spine: L3-L4 Decompession/Fusion;Spinal Cord Monitoring(Not Applicable) - Logan Arshad DO Ordered Studies 04/02/21 07:45 [place] lumbar spine 2-3V Routine Hospital Course (1) Lumbar radiculitis: Patient with lumbar decompression fusion [facility] for postop labor postop day 1 he was up and ambulating progressed to postop day or 2. Excellent strength testing. TRISHA drain decreasing probably. Pain well controlled. Subsequent discharge home. Discharge orders instructions from the chart for further review. Total Time Total Time Spent Total Time Spent (In Minutes): 20 minutes Discharge Plan Discharge Items Patient Disposition: Home - Self-Care Reason For Visit: Other Inteervertebral Disc Degeneration, Lumbar Re Discharge Diagnosis: Lumbar spinal stenosis Activity: As commented below Non-emergency contact: Primary Care Provider Call non-emergency contact if: you have any medication questions Follow-up/Referrals: Burton Nolasco MD [Primary Care Provider] - Diet: Regular Addtl Attending Provider Instructions: ACTIVITY RECOMMENDATIONS: SELF CARE INSTRUCTIONS AFTER THORACIC/LUMBAR FUSIONS 1. You may walk to your tolerance. It is good exercise for your legs and back. Expect some back and intermittent leg aches and pains. 2. You may perform "counter-top" level activities (make a sandwich, yamel with a project, etc.). 3. No bending or lifting of more than 10 pounds or back twisting of any nature (roll like a log when turning in bed). 4. You may ride in a car for 20-30 minutes at a time. No driving until after your first visit with your doctor. 5. Frequent changes of position and restricting sitting to 30 minutes at a time will help limit the amount of back spasms and stiffness you may experience. 6. You may discontinue the use of ambulatory aids (cane, crutches, etc.) once your strength and confidence allow. 7. You may invertebrate paleontologist the shower and let water strike your incision when you arrive home at least once daily. Do not take a tub bath, sit in a hot tub or go into a swimming pool until after your first recheck in the office. SPECIAL CARE INSTRUCTIONS: VERY IMPORTANT TO READ AND REVIEW A. Your surgical incision has been closed with a cosmetic suture under the skin that will dissolve in about 6 weeks. In 14 days, you can use a pair of clean scissors and cut the suture that is left outside of the skin at the ends of your incision. 1. The small skin tapes can be removed 7 days after surgery if they have not fallen off by that point. 2. You may keep the wound open to air as much as possible to promote healing after post-op day number 5 unless told otherwise by your doctor. 3. If you think the wound looks like it is becoming infected (redness or worsening drainage) and/or you are experiencing fever, chill or worsening back pain and muscle spasms, contact the office so that we may evaluate you as soon as possible. B. Complications are uncommon, but please contact us if you have any signs or symptoms of: 1. wound infection (fever higher than 102.5 degrees F, redness, separation of wound, drainage, or increasing pain from the incision) 2. blood clots in legs (pain, swelling, redness and warmth in legs) 3. urinary tract infection (fever higher than 102.5 degrees F, burning upon urination or increased frequency of urination) 4. nerve problems (inability to walk on your toes or heels, numbness, loss of bowel or bladder control) 5. any other symptoms that concern you C. Please call the office at if you have any concerns or questions about your operation or recovery. D. No smoking! Smoking drastically decreases the chance of a solid fusion. E. Do not take any anti-inflammatory medications (Indocin, Advil, Motrin, Aspirin, Naprosyn, etc.) as these may inhibit the chance of a solid fusion. Tylenol is okay to take for pain. MANAGING PAIN AFTER SPINAL SURGERY 1. Narcotic medication is intended for short-term use and will be provided for surgical pain. Surgical pain usually lasts for a period of 4-6 weeks. Narcotic medication includes Percocet, Vicodin, Darvocet, Tylenol #3 or Lortab. 2. Longer-term pain is more appropriately treated with non-narcotic medication such as Tylenol ES. 3. Muscle spasm is not appropriately treated with narcotics. Muscle relaxers such as Soma, Flexeril or Skelaxin can be used along with Tylenol ES. 4. Remember that we all live with some "aches and pains". This is not unusual or uncommon after an injury or as we get older. a. Back pain is expected and may include muscle spasms for 4 to 6 weeks after surgery. The pain should gradually improve. If the pain worsens for no apparent reason, please contact the office. b. Intermittent leg pain may also be experienced and should not be concerned about unless it worsens for no apparent reason. If so, please contact the office. 5. We will provide appropriate medication within the normal guidelines of their prescribed use. We will also be very cautious and aware of potential abuse and extended duration of patients' medication needs. a. Pain medications are for your comfort and to assist with sleep and rest so that the tissue can heal. They are not provided in order to return to normal activity and should not be used through the day. To do so or worsening pain at night can result from ongoing tissue damage and development of tolerance to the prescribed medicine. 6. Please allow 2-3 days to process refills. Prescriptions will not be mailed but must be picked up at the office. FOLLOW UP VISIT: Keep your scheduled follow-up appointment. Any questions, please call the office at . Pending Studies at Discharge: No Stand-Alone Forms: My [facility] [email or web address], Smoking Cessation Medications and DC Order Prescriptions: New oxycodone 5 mg tablet 5 mg PO Q6H PRN (Reason: pain, severe) Qty: 30 RF: 0 tramadol 50 mg tablet 50 mg PO Q6H PRN (Reason: pain, moderate) Qty: 30 RF: 0 Continued tramadol 50 mg tablet See Rx Instructions .ROUTE .COMPLEX Qty: 90 RF: 5 hydrocodone-acetaminophen 10-325 mg tablet 1 tab PO BID PRN (Reason: pain) Qty: 60 RF: 0 ofloxacin 0.3 % drops 5 drp otic (ear) BID 10 Days Qty: 10 RF: 0 econazole 1 % cream 1 appln TOP BID Qty: 85 RF: 0 pramipexole [Mirapex] 0.25 mg tablet 0.25 mg PO HS PRN (Reason: Restless Leg(S)) RF: 0 omeprazole 20 mg capsule,delayed release(DR/EC) 20 mg PO QAM RF: 0 lisinopril-hydrochlorothiazide [Zestoretic] 20-25 mg tablet 1 tab PO QAM RF: 0 dicyclomine 10 mg capsule 10 mg PO QAM RF: 0 finasteride [Proscar] 5 mg tablet 5 mg PO QAM RF: 0 ketoconazole 2 % Cream 1 applic TOPICAL DAILY PRN (Reason: Rash) RF: 0 Tums 1 tab PO DAILY RF: 0 Discontinued diclofenac sodium 50 mg tablet,delayed release (DR/EC) See Rx Instructions .ROUTE .COMPLEX Qty: 60 RF: 11 Discharge Orders: Discharge Order (Routine); Ordered 04/04/21 Ordered By: Logan Arshad Admission Data Admit Date/Time: 04/02/21 10:43 Attending Provider: Logan Arshad Admit Provider: Logan Arshad Primary Care Provider: Burton Nolasco Other Providers: Pratima Valderrama
--- NOTE | 2021-04-04 12:39 | Hospitalist Progress Note ---
Date of Service April 04, 2021 Assessment & Plan (1) S/P lumbar fusion: Norm Cool is a 65yo male with PMHx significant for ARIANA (on home CPAP), HTN (on Lisinopril-HCTZ), RLS/circadian rhythm sleep disorder (on Pramipexole and Dicyclomine), BPH, IBS and lumbar spinal stenosis (previously on several narcotic pain medications at home) who is s/p L3-L4 decompression-fusion surgery by Dr. Arshad today. Hospitalists were consulted for medical management following spinal surgery. Lumbar Spinal Stenosis, s/p L3-L4 D/F on 04/02 doing well post-op, some pain in lower back iva po, no N/V With hgb drop slightly to 12.4 from 14 pre-op consistent with Acute blood loss anemia Hemodynamically stable TRISHA drain in place but to be removed prior to dsicharge today Urinating on own, no BM yet - continued PRN pain regimen as ordered by primary team - PRN constipation regimen per primary team-advised continued Miralax 2-3 times daily and docusate upon discharge -received IV decadron post-op -ANDRÉS/SCDs for DVT ppx being dcd to home today by Surgery (2) Hyponatremia: Na+ 133 on preop labs and now 130 post-op day #1 and #2-- probably from HCTZ and some mild dehydration from being NPO for surgery Asymptomatic -dc HCTZ from home and increase lisinopril to 40mg daily on discharge -recheck BMP in 1 week and f/u with PCP received IVFs post-op encourage po fluid and solute intake (3) ARIANA (obstructive sleep apnea): declines hospital CPAP and does not have home one (4) Restless legs syndrome: continue home mirapex (5) Irritable bowel syndrome: no acute issues (6) BPH (benign prostatic hyperplasia): continue finasteride, no urine retention (7) Hypertension: dc HCTZ as above continue lisinopril but increase to 40mg daily since discontinuing HCTZ as above BPs controlled to mildly elevated here f/u with PCP closely after dc (8) GERD (gastroesophageal reflux disease): continue PPI (9) DVT prophylaxis: FEN/GI: regular diet DVT Prophylaxis: ANDRÉS/SCDs, pharmacologic ppx not indicated at this time Code Status: Full code Disposition: dc to home Admission and Anticipated Discharge Date Admission Date: April 02, 2021 Subjective having some lower back pain but ready to go. Passing flatus but no stool yet. Had problems with constipation after his neck surgery. Denies CP or SOB, no nausea. Is eating. Review of Systems Review of Systems: All systems reviewed & are unremarkable except as noted in HPI & below Physical Exam Constitutional: WD/WN, vitals as above Eyes: + anicteric sclerae Neck: trachea midline, no thyromegaly Respiratory: normal respiratory effort, lungs clear to auscultation Cardiovascular: RRR, no murmur, no edema Chest (Breasts): Chest: normal inspection of chest Gastrointestinal (Abdomen): normal bowel sounds, soft, nontender, no hepatosplenomegaly Musculoskeletal: Extremities: extremities normal to inspection; no cyanosis and no clubbing Skin: no rashes, warm and dry Neurologic: moves all extremities and awake; no focal motor deficits Psychiatric: A+Ox3, euthymic affect Lymphatic: no lymphedema Results & Data Results & Data ([facility]) Vital Signs (Past 12 Hours) Vital Signs Temp Pulse Pulse Resp BP Pulse Ox 04/04/21 11:16 36.8 C 70 66 18 154/88 H 97 04/04/21 07:14 36.8 C 66 18 154/88 H 97 Laboratory Results 04/04/21 04/04/21 Range/Units 05:43 05:43 WBC 9.64 (4.8-10.8) K/uL RBC 4.00 L (4.7-6.1) M/uL Hgb 12.4 L (14.0-18.0) g/dL Hct 35.3 L (42-52) % MCV 88.3 (80-100) fL MCH 31.0 (25-34) pg MCHC 35.1 (32-36) g/dL RDW Std Deviation 41.8 (36.4-46.3) fL RDW Coeff of Jose 12.9 (11.5-14.5) % Plt Count 180 (130-400) K/uL MPV 10.8 H (7.4-10.4) fL Immature Gran % (Auto) 0.1 % Neut % (Auto) 67.3 % Lymph % (Auto) 22.8 % Williams % (Auto) 9.1 % Eos % (Auto) 0.6 % Baso % (Auto) 0.1 % Neut # (Auto) 6.48 (1.4-6.5) K/uL Lymph # (Auto) 2.20 (1.2-3.4) K/uL Williams # (Auto) 0.88 H (0.11-0.59) K/uL Eos # (Auto) 0.06 (0-0.5) K/uL Baso # (Auto) 0.01 (0-0.2) K/uL Immature Gran # (Auto) 0.01 (0.00-0.02) K/uL Sodium 130 L (136-145) mmol/L Potassium 3.9 (3.5-5.1) mmol/L Chloride 98 (98-107) mmol/L Carbon Dioxide 25 (21-32) mmol/L Anion Gap 7.0 (3-11) BUN 15 (7-18) mg/dl Creatinine 0.84 (0.6-1.4) mg/dl Est Cr Clr Drug Dosing 96.2 ml/min Est GFR ( Amer) 106.5 ml/min Est GFR (Non-Af Amer) 91.9 ml/min BUN/Creatinine Ratio 18.4 (10-20) Glucose 113 H (70-99) mg/dl Calcium 8.6 (8.5-10.1) mg/dl PG Care Time/CCT Total # of Minutes Spent Total Time Spent with Patient: Total time spent is greater than 50% in coordination of care (as documented) at patient's floor/unit and/or counseling patient: Coding Level of Care Code 76653 Subseq Hosp Care Lvl 2 Diagnoses S/P lumbar fusion Z98.1 Hyponatremia E87.1 ARIANA (obstructive sleep apnea) G47.33 Restless legs syndrome G25.81 Irritable bowel syndrome K58.9 BPH (benign prostatic hyperplasia) N40.0 Hypertension I10 GERD (gastroesophageal reflux disease) K21.9 DVT prophylaxis Z29.9
--- NOTE | 2021-04-04 13:00 | Billing Data ---
Date of Service April 04, 2021 Coding Level of Care Code 65393 Inpt Consult Level 3
== END 2021-04-04 14:48 | disposition home or self-care (01) | DRG 454 ==
LOC: ASU 06:08 → 3E 10:43

== ENCOUNTER 2022-01-09 09:38 | Inpatient (IN) ==
--- NOTE | 2022-01-09 10:02 | Emergency Department Note ---
Impression & Plan Acute CVA (cerebrovascular accident) ED Provider Note Name: DIPIKA WEIR II Age: 66 Sex: M Arrives Via: Walk-In Informant: Patient, ED Provider: Antonio España MD Chief Complaint: Aphasia Impression: As per impressions above Medical Decision Makin-year-old gentleman with a history of hypertension, tobacco use, ARIANA and father who had an cva in his 60s arrives for evaluation of left arm tingling, left facial tingling and questionable weakness in his left hand. On examination he does have some slight weakness left over right hand but still good 5 out of 5 strength. He has no arm drift. He does have some decreased sensation on examination of the left side of his lower face as well as his left posterior arm and hand. Given the findings a stroke alert was called and patient was emergently taken to the CT scanner for CT evaluation. During this time [place] neurologist was consulted. After discussing with [facility] given the fa ct that he is an active 1 maybe 2 he would not be a candidate for thrombolytics at this time. The CTA wo/w con of the head and neck which was unremarkable. Labs are unremarkable. He is mildly hypertensive though not significantly so we will not joleen this at this time. He was given aspirin 324 mg p.o. with concern for stroke. Multiple repeat evaluations of patient with some waxing and waning symptoms with the tingling/paresthesias initially improving and then slightly coming back then no sitting symptoms nor does he complain of any weakness in his hands or legs. Given my concerns for stroke hospitalist was consulted for further management. Prior Medical Record and Triage/Nursing Notes reviewed by Me Additional history obtained from chart & Differentials:Infection, dehydration, metabolic abnormality, hypo/hyperglycemia, electrolyte disturbance, anemia, hypoxia, cardiac sources, intracerebral event, toxicologic, neurologic, as well as other pathologies. Vital Signs: reviewed and remarkable for HTN Interventions: As 324mg Po Labs:Reviewed and remarkable for no significant abnormalities Imaging:CTA of the head and neck reveals no acute findings EKG:Per My Interpretation: Indication Stroke: NSR 78 bpm, qtc 446. No Ectopy. No Ischemia. Compared to EKG 03/19/21, no significant changes. Cardiac/Tele Monitoring: Cardiac Monitoring: An Order was placed for continuous cardiac monitoring. The monitor shows a rate of 73 with a normal sinus rhythm. Consults:Dr Navid Larkin Neuro -given low stroke scale score and the risks associated with thrombolytics he feels that patient is not a thrombolytic candidate. Dr. Valderrama of the [facility] service consulted for further management. Plan: Disposition:Hospitalization. Condition: Good History of Present Illness:66-year-old gentleman arrives for evaluation of left arm and face paresthesias. Patient notes at 830a he was at the sleep manager's when he noted the left side of his face started tingling. This was shortly followed with increasing tingling throughout his left arm primarily over the posterior aspect of it some weakness in the hand and the left leg. He has a mild headache. He denies any dropping of things with his hand or falls or ataxia. He denies any slurred speech nor visual changes. Patient does note that he wrenched his neck a few weeks ago and since then has been dealing with some left-sided neck discomfort. Patient does not take any blood thinners. He has had no actual head injury. He denies any recent accidents nor trauma. Patient has a familial history of strokes in his father. Patient does have a history of hypertension. Pt has no history of stroke or coronary artery disease. ROS: See above HPI for pertinent positives & negatives. A total of 10 systems reviewed and were otherwise negative. Past Medical History:Sinus congestion, prostate enlargement, GERD, hypertension, IBS, ariana Past Surgical History:Multiple cervical and back operations over the years. Family History:Father has a history of strokes Social History:Patient does construction work/remodeling, is , intermittent tobacco use Home Medications:See Below Allergies:No known drug allergies Vitals:Blood Pressure: 162/116, Pulse 85, RR 18, T 36.4C, O2 98% on RA Physical Exam: GENERAL: Patient is anxious appearing and in minimal distress. EYES: No scleral icterus, unremarkable pupils. ENT: Mucous membranes moist, no nasal congestion. NECK: No masses appreciated, nomeningismus, trachea is midline. RESPIRATORY: No dyspnea. Clear to auscultation and equal bilaterally. No wheeze, no rhonchi. CARDIOVASCULAR: Regular rate and rhythm.No murmurs, rubs, gallops appreciated. GASTROINTESTINAL: Abdomen soft, non-tender, no peritonitis.Bowel sounds positive.No masses appreciated. BACK: No midline tenderness, no CVA tenderness EXTREMITIES: Normal motion all extremities, no cyanosis, no edema. NEUROLOGIC: Perceived decreased sensation lateral left lower face and posterior left arm and left hand. Mild decreased strength left hand compared to right but still 5/5. Otherwise alert and oriented, no other acute motor or sensory deficits, no other focal weakness, cranial nerves grossly intact. SKIN: No rash, no jaundice, no diaphoresis. PSYCH: Appropriate GCS: 15 ED Course: Times/Reassessments: Of note patient symptoms are reported to have begun at 8:30 AM. Patient arrived to ER and was taken to room C6 where he was made a priority patient. 9:49 AM I was at bedside evaluating the patient. 9:53 AM I have been paged for stroke alert. 9:56 AM I requested stroke neurologist be contacted at [place]. 10:04 AM discussed the case with Dr. Bustamante of [place] neurology. After discussing the patient's stroke scale and his symptoms and onset he feels patient is not a thrombolytic candidate. 10:13 AM radiology reports the CT scan is negative Patient reevaluated multiple more times over the course of his ED stay and hospitalist into evaluate further Critical Care: I have personally spent 35 minutes of critical care time in the direct management of this patient. Acute ischemic stroke findings resulting in a stroke alert consideration of thrombolytics. This was a life/limb threatening event. This 35 minutes is in excess of all separately billable procedures. Antonio España MD Past Med/Surg History Medical History BPH w urinary obs/LUTS Cervical disc disease GERD (gastroesophageal reflux disease) controlled Hiatal hernia Hypertension Internal hemorrhoids Lumbar radiculitis Lumbar spinal stenosis Osteoarthritis Seborrheic dermatitis Seborrheic keratosis Sleep apnea CPAP Surgical History History of herniorrhaphy Hx of colonoscopy S/P arthroscopic knee surgery Status post cervical spinal fusion C3-C4 ACDF with left iliac crest bone graft (05/23/18): Grade 2 view, Glidescope #4.0, ETT 8.0 at [facility] Family History Aunt Family history of diabetes mellitus Uncle Family history of diabetes mellitus Grandmother (Paternal) Family history of diabetes mellitus Grandfather (Paternal) Family history of diabetes mellitus Father Family history of diabetes mellitus Social History Smoking Status: Current every day smoker Cigarettes Per Day: 10 cigs/day (intermittent x 30 years); Second Hand Exposure: No; Do You Dip or Chew Tobacco: No; Tobacco Cessation Education Requested by Patient: No Hx Alcohol Use: No Hx Substance Use: No Preferred Language: Thai Communication Ability: Effective 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 Beliefs That Will Affect Care: None marital status: Current Living Situation: Spouse current occupational status: employed Other Information That Helps Us Care for You: Yes (recent neck surgery) Feels Safe at Home: Yes Safety Concerns: Feels Safe At This Time Assistive Devices: Walker Assistive Devices Comment: reading glasses but are not here Allergies Allergies Allergy/AdvReac Type Severity Reaction Status Date / Time No Known Drug Allergies Allergy Verified 01/09/22 10:35 Home Meds Home Medications Medication Instructions Recorded Confirmed diclofenac sodium 50 mg 50 mg PO QAM 01/09/22 01/09/22 tablet,delayed release lisinopril 40 mg tablet 40 mg PO QAM 01/09/22 01/09/22 Previous Rx's Medication Instructions Recorded finasteride 5 mg tablet (Proscar) 5 mg PO QAM #90 tab 08/25/21 indapamide 2.5 mg tablet 2.5 mg PO QAM #90 tab 09/01/21 omeprazole 20 mg capsule,delayed 20 mg PO QAM #90 cap 09/08/21 release ofloxacin 0.3 % ear drops 5 drp OTIC (EAR) BID #10 ml 10/21/21 hydrocodone 10 mg-acetaminophen 1 tab PO BID PRN #60 tab 12/18/21 325 mg tablet tramadol 50 mg tablet 50 mg PO Q6H PRN #30 tab 01/05/22 Results & Data (ED) Vital Signs Vital Signs - 24 hr 01/09/22 09:41 01/09/22 10:10 01/09/22 10:51 Temperature 36.4 C L Temperature Source Temporal Artery Scan Pulse Rate 85 Pulse Rate [Finger] 81 77 Pulse Rhythm Regular Pulse Rhythm [Finger] Pulse Strength Normal Pulse Strength [Finger] Respiratory Rate 18 22 16 Respiratory Effort / Characteristics Non-Labored Spontaneous Respiratory Depth Normal Respiratory Pattern Regular Blood Pressure 162/116 H Blood Pressure [Left Arm] 168/103 H 143/110 H Blood Pressure Mean 131 Blood Pressure Mean [Left Arm] 124 121 Blood Pressure Position Sitting Blood Pressure Position [Left Arm] Pulse Oximetry 98 98 95 Oxygen Delivery Method Room Air Room Air Room Air Sepsis Recent Fever Within 48 Hours No Sepsis New/Unexplained Change in Mental Status No Sepsis Action Taken by Nursing No Action Required 01/09/22 11:06 Temperature 37 C Temperature Source Axillary Pulse Rate Pulse Rate [Finger] 82 Pulse Rhythm Pulse Rhythm [Finger] Regular Pulse Strength Pulse Strength [Finger] Normal Respiratory Rate 19 Respiratory Effort / Characteristics Non-Labored Spontaneous Respiratory Depth Normal Respiratory Pattern Regular Blood Pressure Blood Pressure [Left Arm] 160/113 H Blood Pressure Mean Blood Pressure Mean [Left Arm] 128 Blood Pressure Position Blood Pressure Position [Left Arm] Lying Pulse Oximetry 99 Oxygen Delivery Method Room Air Sepsis Recent Fever Within 48 Hours Sepsis New/Unexplained Change in Mental Status Sepsis Action Taken by Nursing Laboratory Data Result diagrams: 01/09/22 09:51 01/09/22 09:51 Lab Results 01/09/22 01/09/22 01/09/22 Range/Units 09:51 09:51 09:51 WBC 7.49 (4.8-10.8) K/uL RBC 4.68 L (4.7-6.1) M/uL Hgb 14.5 (14.0-18.0) g/dL Hct 41.4 L (42-52) % MCV 88.5 (80-100) fL MCH 31.0 (25-34) pg MCHC 35.0 (32-36) g/dL RDW Std Deviation 43.2 (36.4-46.3) fL RDW Coeff of Jose 13.3 (11.5-14.5) % Plt Count 192 (130-400) K/uL MPV 11.6 H (7.4-10.4) fL Immature Gran % (Auto) 0.1 % Neut % (Auto) 70.3 % Lymph % (Auto) 21.4 % [place] % (Auto) 7.1 % Eos % (Auto) 0.8 % Baso % (Auto) 0.3 % Neut # (Auto) 5.27 (1.4-6.5) K/uL Lymph # (Auto) 1.60 (1.2-3.4) K/uL [place] # (Auto) 0.53 (0.11-0.59) K/uL Eos # (Auto) 0.06 (0-0.5) K/uL Baso # (Auto) 0.02 (0-0.2) K/uL Immature Gran # (Auto) 0.01 (0.00-0.02) K/uL PT (9.0-12.0) Seconds INR (0.9-1.1) APTT (21.0-31.0) Seconds PTT Ratio Sodium (136-145) mmol/L Potassium (3.5-5.1) mmol/L Chloride (98-107) mmol/L Carbon Dioxide (21-32) mmol/L Anion Gap (3-11) BUN (6-23) mg/dl Creatinine (0.6-1.4) mg/dl Est Cr Clr Drug Dosing ml/min Est GFR ( Amer) ml/min Est GFR (Non-Af Amer) ml/min BUN/Creatinine Ratio (10-20) Glucose (70-99(Fasting)) mg/dl POC Glucose 99 (70-99) mg/dl Calcium (8.5-10.1) mg/dl Magnesium (1.7-2.4) mg/dl Total Bilirubin (0.2-1.0) mg/dl AST (13-39) U/L ALT (7-52) U/L Alkaline Phosphatase (34-104) U/L Troponin I (0-0.04) ng/ml Total Protein (6.0-8.3) gm/dl Albumin (3.4-5.0) gm/dl Globulin (2.5-4.0) gm/dl Albumin/Globulin Ratio (0.9-2) SARS-CoV-2, RNA, NAAT (NEGATIVE) Blood Type O Positive Antibody Screen NEGATIVE 01/09/22 01/09/22 01/09/22 Range/Units 09:51 09:51 10:25 WBC (4.8-10.8) K/uL RBC (4.7-6.1) M/uL Hgb (14.0-18.0) g/dL Hct (42-52) % MCV (80-100) fL MCH (25-34) pg MCHC (32-36) g/dL RDW Std Deviation (36.4-46.3) fL RDW Coeff of Jose (11.5-14.5) % Plt Count (130-400) K/uL MPV (7.4-10.4) fL Immature Gran % (Auto) % Neut % (Auto) % Lymph % (Auto) % [place]ter[place] % (Auto) % Eos % (Auto) % Baso % (Auto) % Neut # (Auto) (1.4-6.5) K/uL Lymph # (Auto) (1.2-3.4) K/uL [place] # (Auto) (0.11-0.59) K/uL Eos # (Auto) (0-0.5) K/uL Baso # (Auto) (0-0.2) K/uL Immature Gran # (Auto) (0.00-0.02) K/uL PT 10.6 (9.0-12.0) Seconds INR 1.0 (0.9-1.1) APTT 26.8 (21.0-31.0) Seconds PTT Ratio 1.0 Sodium 131 L (136-145) mmol/L Potassium 3.7 (3.5-5.1) mmol/L Chloride 97 L (98-107) mmol/L Carbon Dioxide 28 (21-32) mmol/L Anion Gap 6 (3-11) BUN 15 (6-23) mg/dl Creatinine 0.86 (0.6-1.4) mg/dl Est Cr Clr Drug Dosing 92.7 ml/min Est GFR ( Amer) 104.7 ml/min Est GFR (Non-Af Amer) 90.4 ml/min BUN/Creatinine Ratio 17.4 (10-20) Glucose 96 (70-99(Fasting)) mg/dl POC Glucose (70-99) mg/dl Calcium 9.9 (8.5-10.1) mg/dl Magnesium 1.7 (1.7-2.4) mg/dl Total Bilirubin 0.5 (0.2-1.0) mg/dl AST 17 (13-39) U/L ALT 13 (7-52) U/L Alkaline Phosphatase 54 (34-104) U/L Troponin I < 0.03 (0-0.04) ng/ml Total Protein 7.2 (6.0-8.3) gm/dl Albumin 4.6 (3.4-5.0) gm/dl Globulin 2.6 (2.5-4.0) gm/dl Albumin/Globulin Ratio 1.8 (0.9-2) SARS-CoV-2, RNA, NAAT NEGATIVE (NEGATIVE) Blood Type Antibody Screen Administered Medications Atorvastatin Calcium (Atorvastatin 40 Mg Tab) 40 mg PO QAM SADIQ Stop: 02/08/22 14:29 Last Admin: 01/09/22 15:19 Dose: 40 mg Documented by: [id number] Enoxaparin Sodium (Enoxaparin Inj 40 Mg/0.4 Ml Syr) 40 mg SQ Q24H SADIQ Stop: 02/08/22 13:59 Last Admin: 01/09/22 15:19 Dose: 40 mg Documented by: [id number] Discontinued Medications Aspirin (Aspirin 81 Mg Chew) 324 mg PO NOW STA Stop: 01/09/22 10:50 Last Admin: 01/09/22 10:53 Dose: 324 mg Documented by: [id number] Sodium Chloride (Nss 1000ml) 1,000 mls @ 125 mls/hr IV .Q8H SADIQ Stop: 02/08/22 10:14 Last Infusion: 01/09/22 14:15 Dose: 0 mls/hr Documented by: [id number] Admin: 01/09/22 10:31 Dose: 125 mls/hr Documented by: [id number] Ioversol (Optiray 320 125ml) 120 ml IV ONCE ONE Stop: 01/09/22 10:11 Last Admin: 01/09/22 10:10 Dose: 120 ml Documented by: [id number] Imaging Data Radiologist's Impression: Head CT 01/09/22 09:55 CT head/brain wo con CLINICAL HISTORY: Stroke Like Symptoms . Left-sided numbness COMPARISON STUDY: No previous studies for comparison. CT DOSE: 729.78 mGycm TECHNIQUE: Standard CT of the Brain was performed without IV contrast. A dose lowering technique was utilized adhering to the principles of ALARA. FINDINGS: Extraaxial space: There is no evidence for subdural hematoma. There are no extra-axial fluid collections. Ventricles and cisterns: The ventricles are normal in size and configuration. There is no evidence for midline shift or mass effect. Parenchyma: There is no subarachnoid or intraparenchymal hemorrhage. There is no evidence for an acute infarct or cerebral edema. There is homogeneous attenuation of the brain parenchyma. There are no gross mass lesions. Osseous structures: There is no evidence for an acute fracture. The visualized paranasal sinuses are clear. The mastoid air cells are clear bilaterally. Soft tissues: There is no evidence for focal soft tissue swelling. IMPRESSION: 1. No acute intracerebral pathology. ACT 112: Negative or not required by law. Electronically signed by: Pantera Daniels M.D. 01/09/2022 10:13 AM Head CTA 01/09/22 09:55 HEAD & NECK CTA HISTORY: Left-sided numbness. Stroke Like Symptoms TECHNIQUE: Multiaxial CT images of the head were performed following the intravenous administration of contrast to evaluate the major cerebral vessels. Multiaxial CT images of the neck were also performed following the intravenous administration of contrast to evaluate the major cervical vessels. Maximum intensity projection images were also obtained. A dose lowering technique was utilized adhering to the principles of ALARA. COMPARISON: Noncontrast head CT 01/09/2022. FINDINGS: There is no mass, hematoma, midline shift, or acute infarct. Visualized intracranial internal carotid arteries, distal vertebral arteries, and basilar artery are widely patent. There is no significant stenosis, occlusion, or aneurysm seen within the bilateral ACAs, MCAs, or supervisor cutting and sewing room. The major dural venous sinuses are patent. The proximal great vessels are widely patent. There is no significant stenosis, occlusion, or dissection identified within the bilateral common carotid, internal carotid, or vertebral arteries. Emphysema is noted at the lung apices. IMPRESSION: 1. No significant stenosis, occlusion, or aneurysm within the [place]. 2. No significant stenosis, occlusion, or dissection identified within the carotid or vertebral arteries. ACT 112: Negative or not required by law. Electronically signed by: Manoj Wilkerson M.D. 01/09/2022 10:33 AM Neck CTA 01/09/22 09:55 HEAD & NECK CTA HISTORY: Left-sided numbness. Stroke Like Symptoms TECHNIQUE: Multiaxial CT images of the head were performed following the intravenous administration of contrast to evaluate the major cerebral vessels. Multiaxial CT images of the neck were also performed following the intravenous administration of contrast to evaluate the major cervical vessels. Maximum intensity projection images were also obtained. A dose lowering technique was utilized adhering to the principles of ALARA. COMPARISON: Noncontrast head CT 01/09/2022. FINDINGS: There is no mass, hematoma, midline shift, or acute infarct. Visualized intracranial internal carotid arteries, distal vertebral arteries, and basilar artery are widely patent. There is no significant stenosis, occlusion, or aneurysm seen within the bilateral ACAs, MCAs, or supervisor cutting and sewing room. The major dural venous sinuses are patent. The proximal great vessels are widely patent. There is no significant stenosis, occlusion, or dissection identified within the bilateral common carotid, internal carotid, or vertebral arteries. Emphysema is noted at the lung apices. IMPRESSION: 1. No significant stenosis, occlusion, or aneurysm within the [place]. 2. No significant stenosis, occlusion, or dissection identified within the carotid or vertebral arteries. ACT 112: Negative or not required by law. Electronically signed by: Manoj Wilkerson M.D. 01/09/2022 10:33 AM Brain MRI 01/09/22 11:21 Brain MRI WITHOUT CONTRAST HISTORY: Left face and arm numbness. evaluate for CVA TECHNIQUE: Multiplanar multisequence MRI of the brain was performed without the use of contrast. COMPARISON STUDY: Head CT 01/09/2022. FINDINGS: There is a 7 mm focus of restricted diffusion to within the right thalamus on image 14. This is consistent with an acute lacunar infarct. The midline structures are intact. The major vascular flow-voids at the skull base are well-maintained. The orbits are unremarkable. Small retention cyst within the left maxillary sinus. The mastoid air cells are clear. The ventricles and sulci are within normal limits. There is no mass, hematoma, midline shift shift. A few scattered punctate foci of T2 hyperintensity seen within the periventricular white matter of the supratentorial brain. These are nonspecific but favor mild microvascular ischemic change. IMPRESSION: A 7 mm acute lacunar infarct within the right thalamus. ACT 112: Negative or not required by law. Electronically signed by: Manoj Wilkerson M.D. 01/09/2022 12:52 PM Discharge Plan Visit Data Chief Complaint: Stroke/CVA Symptoms Stated Complaint: TINGLING FACE RADIATES DOWN ARM AND LEG ED Provider: Antonio España Discharge Problem: Acute CVA (cerebrovascular accident) Patient Disposition: Admitted As Inpatient Discharge Instructions Interventions: ED Discharge Assessment Last Done: 01/09/22 13:16
[2022-01-09] MEDS ORDERED: OPTIRAY 320 125ml IV ONE (10:10)
--- NOTE | 2022-01-09 10:14 | CT Scan Report ---
CT head/brain wo con CLINICAL HISTORY: Stroke Like Symptoms . Left-sided numbness COMPARISON STUDY: No previous studies for comparison. CT DOSE: 729.78 mGycm TECHNIQUE: Standard CT of the Brain was performed without IV contrast. A dose lowering technique was utilized adhering to the principles of ALARA. FINDINGS: Extraaxial space: There is no evidence for subdural hematoma. There are no extra-axial fluid collecti ons. Ventricles and cisterns: The ventricles are normal in size and configuration. There is no evidence fo r midline shift or mass effect. Parenchyma: There is no subarachnoid or intraparenchymal hemorrhage. There is no evidence for an acut e infarct or cerebral edema. There is homogeneous attenuation of the brain parenchyma. There are no g ross mass lesions. Osseous structures: There is no evidence for an acute fracture. The visualized paranasal sinuses are clear. The mastoid air cells are clear bilaterally. Soft tissues: There is no evidence for focal soft tissue swelling. IMPRESSION: 1. No acute intracerebral pathology. ACT 112: Negative or not required by law. Electronically signed by: Pantera Daniels M.D. 01/09/2022 10:13 AM
[2022-01-09] MEDS ORDERED: SODIUM CHLORIDE 0.9% 1000ML 1,000 ML IV SCH (10:15)
[2022-01-09 10:16] LABS: Basophils # (auto) 0.02 K/uL (0-0.2); Basophils % (auto) 0.3 %; Eosinophils # (auto) 0.06 K/uL (0-0.5); Eosinophils % (auto) 0.8 %; Hematocrit (blood only) 41.4 % (42-52); Hemoglobin 14.5 g/dL (14.0-18.0); Immature Granulocytes # (auto) 0.01 K/uL (0.00-0.02); Immature Granulocytes % (auto) 0.1 %; Lymphocytes % (auto) 21.4 %; Mean Corpuscular Volume 88.5 fL (80-100); Mean Platelet Volume 11.6 fL (7.4-10.4); Monocytes # (auto) 0.53 K/uL (0.11-0.59); Monocytes % (auto) 7.1 %; Neutrophils # (auto) 5.27 K/uL (1.4-6.5); Neutrophils % (auto) 70.3 %; Platelet Count 192 K/uL (130-400); RDW Coefficient of Variation 13.3 % (11.5-14.5); RDW Standard Deviation 43.2 fL (36.4-46.3); Red Blood Count 4.68 M/uL (4.7-6.1); White Blood Count 7.49 K/uL (4.8-10.8)
--- NOTE | 2022-01-09 10:34 | CT Scan Report ---
HEAD & NECK CTA HISTORY: Left-sided numbness. Stroke Like Symptoms TECHNIQUE: Multiaxial CT images of the head were performed following the intravenous administration o f contrast to evaluate the major cerebral vessels. Multiaxial CT images of the neck were also perform ed following the intravenous administration of contrast to evaluate the major cervical vessels. Maxim um intensity projection images were also obtained. A dose lowering technique was utilized adhering to the principles of ALARA. COMPARISON: Noncontrast head CT 01/09/2022. FINDINGS: There is no mass, hematoma, midline shift, or acute infarct. Visualized intracranial internal carotid arteries, distal vertebral arteries, and basilar artery are widely patent. There is no significant s tenosis, occlusion, or aneurysm seen within the bilateral ACAs, MCAs, or window machine operator. The major dural venous sinuses are patent. The proximal great vessels are widely patent. There is no significant stenosis, occlusion, or disse ction identified within the bilateral common carotid, internal carotid, or vertebral arteries. Emphys zora is noted at the lung apices. IMPRESSION: 1. No significant stenosis, occlusion, or aneurysm within the [place] of [place]. 2. No significant stenosis, occlusion, or dissection identified within the carotid or vertebral arter ies. ACT 112: Negative or not required by law. Electronically signed by: Manoj Wilkerson M.D. 01/09/2022 10:33 AM
--- NOTE | 2022-01-09 10:34 | CT Scan Report ---
HEAD & NECK CTA HISTORY: Left-sided numbness. Stroke Like Symptoms TECHNIQUE: Multiaxial CT images of the head were performed following the intravenous administration o f contrast to evaluate the major cerebral vessels. Multiaxial CT images of the neck were also perform ed following the intravenous administration of contrast to evaluate the major cervical vessels. Maxim um intensity projection images were also obtained. A dose lowering technique was utilized adhering to the principles of ALARA. COMPARISON: Noncontrast head CT 01/09/2022. FINDINGS: There is no mass, hematoma, midline shift, or acute infarct. Visualized intracranial internal carotid arteries, distal vertebral arteries, and basilar artery are widely patent. There is no significant s tenosis, occlusion, or aneurysm seen within the bilateral ACAs, MCAs, or irrigation engineer. The major dural venous sinuses are patent. The proximal great vessels are widely patent. There is no significant stenosis, occlusion, or disse ction identified within the bilateral common carotid, internal carotid, or vertebral arteries. Emphys zora is noted at the lung apices. IMPRESSION: 1. No significant stenosis, occlusion, or aneurysm within the [place]. 2. No significant stenosis, occlusion, or dissection identified within the carotid or vertebral arter ies. ACT 112: Negative or not required by law. Electronically signed by: Manoj Wilkerson M.D. 01/09/2022 10:33 AM
[2022-01-09 10:36] LABS: Partial Thromboplastin Time 26.8 Seconds (21.0-31.0); Prothrombin Time 10.6 Seconds (9.0-12.0)
[2022-01-09 10:42] LABS: Troponin I < 0.03 ng/ml (0-0.04)
[2022-01-09] MEDS ORDERED: ASPIRIN 81 MG CHEW PO STA (10:49)
[2022-01-09 10:56] LABS: Alanine Aminotransferase 13 U/L (7-52); Albumin Globulin Ratio 1.8 (0.9-2); Albumin Level 4.6 gm/dl (3.4-5.0); Alkaline Phosphatase 54 U/L (34-104); Anion Gap 6 (3-11); Aspartate Aminotransferase 17 U/L (13-39); BUN Creatinine Ratio 17.4 (10-20); Bilirubin,Total 0.5 mg/dl (0.2-1.0); Blood Urea Nitrogen 15 mg/dl (6-23); Calcium 9.9 mg/dl (8.5-10.1); Carbon Dioxide 28 mmol/L (21-32); Chloride 97 mmol/L (98-107); Creatinine Clr Calc Pharmacy 92.7 ml/min; Est GFR (African American) 104.7 ml/min; Est GFR (Non-African American) 90.4 ml/min; Globulin 2.6 gm/dl (2.5-4.0); Glucose 96 mg/dl (70-99(Fasting)); Magnesium 1.7 mg/dl (1.7-2.4); Potassium 3.7 mmol/L (3.5-5.1); Sodium 131 mmol/L (136-145); Total Protein 7.2 gm/dl (6.0-8.3)
--- NOTE | 2022-01-09 11:45 | History & Physical Report ---
Date of Service January 09, 2022 Assessment & Plan (1) Stroke-like symptoms: Plan: Patient stroke alerted on arrival for left face/arm numbness and tingling- NIHSS 1 - Initial imaging negative for large CVA or carotid dissection - DDX: CVA vs. Cervical Radiculopathy - C1-C3 distribution is possible - MRI- A 7 mm acute lacunar infarct within the right thalamus. - ECHO - ASA daily - Lipid panel sent- not on statin- will place on atorvastatin 40mg - Acute CVA MRI brain- as above- for now allow permissive HTN - PT/OT consut - Smoking Cessation (2) Cervical disc disease: Plan: History of cervical discectomy and correction with anterior interbody fusion in 2018 - Heat therapy to left back and upper neck - No pinpoint pain and full range of motion- - Continue his home pain medication and Diclofenac - Cervical MRI with above brain MRI- with surgical history as well as complaint of crack by patient last week. (3) BPH w urinary obs/LUTS: Plan: Continue with finasteride (4) Sleep apnea: Plan: CPAP AutoPap at home - compliance prior to recall was 56% secondary to nasal congestion - does not wan to wear in house CPAP (5) GERD (gastroesophageal reflux disease): Plan: Stable continue with omeprazole (6) Chronic sinusitis: Plan: Saline spray if needed previously stopped intranasal corticosteroid as symptoms resloved - follow (7) Lumbar spinal stenosis: Plan: L3-L5 instrumentatin and fusion to L3-L4 perofmed in April 21 - pain controlled at this time no radiculopathy History of Present Illness Primary Care Provider: Burton Nolasco MD 66 YOM with past medical history of: HTN, Sinus congestion, ARIANA, DJD- lumbar, cervical with radiculopathy. Patient comes to the emergency room today for complaints of left arm numbness, tingling and associated left face, tongue numbness. This started at around 0830 this morning while he was at the veterinary office with his dog. He went to sit in chair and noticed onset of the above. This occurred at the same time and did was not progressive, it was associated with a headache that is different than his normal headaches that he got from his sinuses. This headache was noted to be on the top of his head. This has resolved, but remains with the numbness along the left face below eye into jaw, neck normal, and then down his arm to his fingers. He was a stroke alert on arrival and had CT of the head CTA of the head and neck performed that is negative for acute process. He was not a candidate for Thrombolytics secondary to NIH of 1. He is noted to be hypertensive on arrival. He does not use his CPAP currently secondary to recall and prior to that recall he had poor compliance secondary to sinus pain and congestion for which he follows with Dr. Ceja. For his cervical spine disease the patient did under go a cervical Discectomy and correction of kyphosis at c3-c4 level in 2018. He endorses that he was working on some tile last week and heard a crack, but was not associated with any radiculopathy, pain, or change. Patient will be admitted to complete his CVA workup and follow his symptomatology as may also be cervical radiculopathy in nature. He was given ASA in the EMD. Will place on daily asa, check lipids in the morning, ECHO. Patient COVID test on admission is: NEGATIVE Allergies Allergy/AdvReac Type Severity Reaction Status Date / Time No Known Drug Allergies Allergy Verified 01/09/22 10:35 Home Medications Medication Instructions Recorded Confirmed Type finasteride 5 mg tablet (Proscar) 5 mg PO QAM #90 tab 08/25/21 01/09/22 Rx indapamide 2.5 mg tablet 2.5 mg PO QAM #90 tab 09/01/21 01/09/22 Rx omeprazole 20 mg capsule,delayed 20 mg PO QAM #90 cap 09/08/21 01/09/22 Rx release ofloxacin 0.3 % ear drops 5 drp OTIC (EAR) BID #10 ml 10/21/21 01/09/22 Rx hydrocodone 10 mg-acetaminophen 1 tab PO BID PRN #60 tab 12/18/21 01/09/22 Rx 325 mg tablet tramadol 50 mg tablet 50 mg PO Q6H PRN #30 tab 01/05/22 01/09/22 Rx diclofenac sodium 50 mg 50 mg PO QAM 01/09/22 01/09/22 History tablet,delayed release lisinopril 40 mg tablet 40 mg PO QAM 01/09/22 01/09/22 History Past Med/Surg History Medical History BPH w urinary obs/LUTS Cervical disc disease GERD (gastroesophageal reflux disease) controlled Hiatal hernia Hypertension Internal hemorrhoids Lumbar radiculitis Lumbar spinal stenosis Osteoarthritis Seborrheic dermatitis Seborrheic keratosis Sleep apnea CPAP Surgical History History of herniorrhaphy Hx of colonoscopy S/P arthroscopic knee surgery Status post cervical spinal fusion C3-C4 ACDF with left iliac crest bone graft (05/23/18): Grade 2 view, Glidescope #4.0, ETT 8.0 at [facility] Family History Aunt Family history of diabetes mellitus Uncle Family history of diabetes mellitus Grandmother (Paternal) Family history of diabetes mellitus Grandfather (Paternal) Family history of diabetes mellitus Father Family history of diabetes mellitus Social History Smoking Status: Current every day smoker Cigarettes Per Day: 10 cigs/day (intermittent x 30 years); Second Hand Exposure: No; Do You Dip or Chew Tobacco: No; Tobacco Cessation Education Requested by Patient: No Hx Alcohol Use: No Hx Substance Use: No Preferred Language: [place] Communication Ability: Effective Fisher Trot Line Required: No Beliefs That Will Affect Care: None marital status: Current Living Situation: Spouse current occupational status: employed Other Information That Helps Us Care for You: Yes (recent neck surgery) Feels Safe at Home: Yes Safety Concerns: Feels Safe At This Time Assistive Devices: Walker Assistive Devices Comment: reading glasses but are not here Review of Systems Review of Systems: REVIEW OF SYSTEMS: Constitutional: No fever, sweats or chills Eyes: No diplopia, no worsening or blurred vision ENT: normal hearing, no trouble swallowing Respiratory: No cough, sputum, dyspnea at rest or on exertion Cardiovascular: No chest pain, tightness or palpitations Abdomen: No pain, nausea, vomiting, diarrhea or constipation Musculoskeletal: (+) back, neck pain, NO, calf pain, swelling Neurologic: (+) weakness, numbness/tingling, NO balance problems Psychiatric: No anxiety or depression Skin: No rash or itch Physical Exam Physical Exam: PHYSICAL EXAM: General: awake, alert, no apparent distress Head: Normocephalic, atraumatic ENT: PERRL, EOMI, no pharyngeal exudate, mucous membranes moist Neuro: AAO x 3, speech clear and appropriate, Facial movement intact, no asymmetry, bilateral upper extremities 5/5 strength with no drift, bilateral lower extremities with 5/5 strength, no ataxia, sensation in lower extremities intact all dermatomes, chest wall sensation intact, left arm with numbness from shoulder to left lateral fingers, right arm intact sensation throughout. Sensation to face he feels is equal on both sides but feels like he has novocaine to left cheek and inside mouth Chest: equal rise and fall of the chest, no accessory muscle use, no heaves or thrills, Clear to auscultation, on room air, Cardiac: Regular rate and rhythm, telemetry reviewed, skin warm dry, cap refill <3 seconds, peripheral pulses +2 no JVD, no murmur, no JVD, no edema GI: NABS x 4 quadrants, soft, nontender to palpation, no rebound, guarding or tenderness : Spontaneously voiding, no pain, no CVA tenderness, MSK: Chronic back and neck pain, pain with palpation to left trapezius with sharp radiating pain to left arm Psych: Normal mood and affect Skin: no rash or erythema Results & Data Results & Data ([facility]) Vital Signs (Past 12 Hours) Vital Signs Temp Pulse Pulse Resp BP BP Pulse Ox 01/09/22 11:06 37 C 82 19 160/113 H 99 01/09/22 10:51 77 16 143/110 H 95 01/09/22 10:10 81 22 168/103 H 98 01/09/22 09:41 36.4 C L 85 18 162/116 H 98 Laboratory Results Abnormal lab results 01/09/22 01/09/22 Range/Units 09:51 09:51 RBC 4.68 L (4.7-6.1) M/uL Hct 41.4 L (42-52) % MPV 11.6 H (7.4-10.4) fL Sodium 131 L (136-145) mmol/L Chloride 97 L (98-107) mmol/L Diagnostic Findings Head CT 01/09/22 09:55 CT head/brain wo con CLINICAL HISTORY: Stroke Like Symptoms . Left-sided numbness COMPARISON STUDY: No previous studies for comparison. CT DOSE: 729.78 mGycm TECHNIQUE: Standard CT of the Brain was performed without IV contrast. A dose lowering technique was utilized adhering to the principles of ALARA. FINDINGS: Extraaxial space: There is no evidence for subdural hematoma. There are no extra-axial fluid collections. Ventricles and cisterns: The ventricles are normal in size and configuration. There is no evidence for midline shift or mass effect. Parenchyma: There is no subarachnoid or intraparenchymal hemorrhage. There is no evidence for an acute infarct or cerebral edema. There is homogeneous attenuation of the brain parenchyma. There are no gross mass lesions. Osseous structures: There is no evidence for an acute fracture. The visualized paranasal sinuses are clear. The mastoid air cells are clear bilaterally. Soft tissues: There is no evidence for focal soft tissue swelling. IMPRESSION: 1. No acute intracerebral pathology. ACT 112: Negative or not required by law. Electronically signed by: Pantera Daniels M.D. 01/09/2022 10:13 AM Head CTA 01/09/22 09:55 HEAD & NECK CTA HISTORY: Left-sided numbness. Stroke Like Symptoms TECHNIQUE: Multiaxial CT images of the head were performed following the intravenous administration of contrast to evaluate the major cerebral vessels. Multiaxial CT images of the neck were also performed following the intravenous administration of contrast to evaluate the major cervical vessels. Maximum intensity projection images were also obtained. A dose lowering technique was utilized adhering to the principles of ALARA. COMPARISON: Noncontrast head CT 01/09/2022. FINDINGS: There is no mass, hematoma, midline shift, or acute infarct. Visualized intracranial internal carotid arteries, distal vertebral arteries, and basilar artery are widely patent. There is no significant stenosis, occlusion, or aneurysm seen within the bilateral ACAs, MCAs, or forest supervisor. The major dural venous sinuses are patent. The proximal great vessels are widely patent. There is no significant stenosis, occlusion, or dissection identified within the bilateral common carotid, internal carotid, or vertebral arteries. Emphysema is noted at the lung apices. IMPRESSION: 1. No significant stenosis, occlusion, or aneurysm within the [place] of [place]. 2. No significant stenosis, occlusion, or dissection identified within the carotid or vertebral arteries. ACT 112: Negative or not required by law. Electronically signed by: Manoj Wilkerson M.D. 01/09/2022 10:33 AM Neck CTA 01/09/22 09:55 HEAD & NECK CTA HISTORY: Left-sided numbness. Stroke Like Symptoms TECHNIQUE: Multiaxial CT images of the head were performed following the intravenous administration of contrast to evaluate the major cerebral vessels. Multiaxial CT images of the neck were also performed following the intravenous administration of contrast to evaluate the major cervical vessels. Maximum in tensity projection images were also obtained. A dose lowering technique was utilized adhering to the principles of ALARA. COMPARISON: Noncontrast head CT 01/09/2022. FINDINGS: There is no mass, hematoma, midline shift, or acute infarct. Visualized intracranial internal carotid arteries, distal vertebral arteries, and basilar artery are widely patent. There is no significant stenosis, occlusion, or aneurysm seen within the bilateral ACAs, MCAs, or forest supervisor. The major dural venous sinuses are patent. The proximal great vessels are widely patent. There is no significant stenosis, occlusion, or dissection identified within the bilateral common carotid, internal carotid, or vertebral arteries. Emphysema is noted at the lung apices. IMPRESSION: 1. No significant stenosis, occlusion, or aneurysm within the [place] of [place]. 2. No significant stenosis, occlusion, or dissection identified within the carotid or vertebral arteries. ACT 112: Negative or not required by law. Electronically signed by: Manoj Wilkerson M.D. 01/09/2022 10:33 AM MR cervical spine wo con CLINICAL HISTORY: Previous C3-4 fusion. Number within the left arm since this morning with no history of stroke. COMPARISON: 12/09/2018 TECHNIQUE: Multiplanar multisequence images of the Cervical Spine were performed without IV contrast. FINDINGS: The patient is again status post hysterectomy and intervertebral body fusion at C3-4. No acute abnormality is seen. Slight straightening and reversal of the expected cervical lordosis is again seen. The heights of the vertebral bodies are maintained. The vertebral bodies are in anatomic alignment. Homogeneous marrow signal is seen without evidence for marrow edema or marrow replacement. The odontoid is intact and the atlantoaxial articulation is within normal limits. The craniocervical junction is within normal limits. Homogeneous signal is seen within the spinal cord. C2-3: The disc space height is maintained. There are no focal disc protrusions or extrusions identified. The spinal canal is patent with no encroachment upon the spinal cord. The neural foramen are patent bilaterally. There is no evidence for nerve root encroachment. The apophyseal joints are within normal limits. C3-4: There is again anterior vertebral body fusion with moderate disc space narrowing and disc/osteophyte complex present. This does encroach upon the spinal canal anteriorly abuts the anterior margin of the spinal cord which is unchanged. There is again loss of CSF surrounding the spinal cord with the AP diameter of thecal sac again measuring approximately 7 mm. Findings are again characteristic of mild to moderate central canal stenosis. No significant foraminal stenosis is identified. C4-5: This is the disc space level below spinal fusion. There is now moderate disc space narrowing with disc/osteophyte complex present. There are no focal disc protrusions or extrusions identified. However, this encroaches upon the spinal canal anteriorly and abuts the anterior margin of the spinal cord. There is loss of CSF surrounding the spinal cord and the findings are characteristic of moderate central canal stenosis. The AP diameter of the thecal sac at this level is 7 mm. There is no definite foraminal encroachment. C5-6: There is mild disc space narrowing with mild bulging annulus present. There are no focal disc protrusions or extrusions identified. This encroaches upon the spinal canal anteriorly and abuts the anterior margin of the spinal cord without compressing or deforming it. There is loss of CSF surrounding the spinal cord with findings characteristic of mild central canal stenosis. AP diameter measures 8 mm at this level. The neural foramen are patent bilaterally. There is no evidence for nerve root encroachment. The apophyseal joints are within normal limits. C6-7: The disc space height is maintained. There are no focal disc protrusions or extrusions identified. The spinal canal is patent with no encroachment upon the spinal cord. The neural foramen are patent bilaterally. There is no evidence for nerve root encroachment. The apophyseal joints are within normal limits. C7-T1: The disc space height is maintained. There are no focal disc protrusions or extrusions identified. The spinal canal is patent with no encroachment upon the spinal cord. The neural foramen are patent bilaterally. There is no evidence for nerve root encroachment. The apophyseal joints are within normal limits. IMPRESSION: 1. Compared to the previous study, there is stable vertebral body fusion at C3- 4 with disc/osteophyte complex again seen encroaching upon the spinal canal and producing mild to moderate central canal stenosis. 2. There is again disc/osteophyte complex also present at C4-5 with moderate central canal stenosis present. 3. There is now bulging annulus and evidence for mild central canal stenosis at C5-6. 4. No definite focal disc protrusion/herniation or focal nerve root encroachment is identified. Brain MRI WITHOUT CONTRAST HISTORY: Left face and arm numbness. evaluate for CVA TECHNIQUE: Multiplanar multisequence MRI of the brain was performed without the use of contrast. COMPARISON STUDY: Head CT 01/09/2022. FINDINGS: There is a 7 mm focus of restricted diffusion to within the right thalamus on image 14. This is consistent with an acute lacunar infarct. The midline structures are intact. The major vascular flow-voids at the skull base are well-maintained. The orbits are unremarkable. Small retention cyst within the left maxillary sinus. The mastoid air cells are clear. The ventricles and sulci are within normal limits. There is no mass, hematoma, midline shift shift. A few scattered punctate foci of T2 hyperintensity seen within the per iventricular white matter of the supratentorial brain. These are nonspecific but favor mild microvascular ischemic change. IMPRESSION: A 7 mm acute lacunar infarct within the right thalamus. ACT 112: Negative or not required by law. Electronically signed by: Manoj Wilkerson M.D. 01/09/2022 12:52 PM Medications Administered Sodium Chloride (Nss 1000ml) 1,000 mls @ 125 mls/hr IV .Q8H SADIQ Stop: 02/08/22 10:14 Last Admin: 01/09/22 10:31 Dose: 125 mls/hr Documented by: [id number] Discontinued Medications Aspirin (Aspirin 81 Mg Chew) 324 mg PO NOW STA Stop: 01/09/22 10:50 Last Admin: 01/09/22 10:53 Dose: 324 mg Documented by: [id number] Ioversol (Optiray 320 125ml) 120 ml IV ONCE ONE Stop: 01/09/22 10:11 Last Admin: 01/09/22 10:10 Dose: 120 ml Documented by: [id number] Home Medications finasteride 5 mg tablet (Proscar) 5 mg PO QAM #90 tab 08/25/21 [Rx Confirmed 01/09/22] indapamide 2.5 mg tablet 2.5 mg PO QAM #90 tab 09/01/21 [Rx Confirmed 01/09/22] omeprazole 20 mg capsule,delayed release 20 mg PO QAM #90 cap 09/08/21 [Rx Confirmed 01/09/22] ofloxacin 0.3 % ear drops 5 drp OTIC (EAR) BID #10 ml 10/21/21 [Rx Confirmed 01/09/22] hydrocodone 10 mg-acetaminophen 325 mg tablet 1 tab PO BID PRN #60 tab 12/18/21 [Rx Confirmed 01/09/22] tramadol 50 mg tablet 50 mg PO Q6H PRN #30 tab 01/05/22 [Rx Confirmed 01/09/22] diclofenac sodium 50 mg tablet,delayed release 50 mg PO QAM 01/09/22 [History Confirmed 01/09/22] lisinopril 40 mg tablet 40 mg PO QAM 01/09/22 [History Confirmed 01/09/22] Active Medications Sodium Chloride (Nss 1000ml) 1,000 mls @ 125 mls/hr IV .Q8H SADIQ Stop: 02/08/22 10:14 Last Admin: 01/09/22 10:31 Dose: 125 mls/hr Documented by: ECG Additional Comments: Normal sinus rhythm Incomplete right bundle branch block Left anterior fascicular block Abnormal ECG When compared with ECG of 19-MAR-2021 11:02, No significant change was found Code Status & VTE Plan Code Status CODE: FULL VTE: SCDS, Lovenox 40mg subq daily VTE Prophylaxis Plan VTE Prophylaxis will be ordered: Yes Supervising Physician Co-Signing Physician Notes TISSUE SPECIALIST Supervision note: I have personally seen and examined the patient and discussed and verified the william points of the history and physical along with the plan with ABBEY Mayo with the following exceptions and/or additions: Pt is a 66 yo male with a h/o HTN,chronic neck pain, chronic sinusitis, current smoker, here with acute onset of left sided facial and LUE numbness but no weakness. CT head and CTA h/n performed in ER and negative. He is continuing to have the same symptoms. History and ROS reviewed as above Vitals reviewed NAD, AAOx3 EOMI, anicteric sclerae RRR no mgr CTAB no wcr ABd +BS soft NT ND Ext no edema Neuro-dec sensation LUE and left face Labs and rads reviewed 66 yo male here with acute right thalamic stroke start ASA 81mg daily consult Neuro encourage smoking cessation start statin high intensity and heck lipids check A1C BP control after 48 hrs PG Care Time/CCT Total # of Minutes Spent Total Time Spent with Patient: Total time spent is greater than 50% in coordination of care (as documented) at patient's floor/unit and/or counseling patient: Coding Level of Care Code 55158 Initial Inpt Care Lvl 3 Diagnoses Stroke-like symptoms R29.90 Chronic sinusitis J32.9 BPH w urinary obs/LUTS N40.1; N13.8 Sleep apnea G47.30 GERD (gastroesophageal reflux disease) K21.9 Lumbar spinal stenosis M48.061 Cervical disc disease M50.90
--- NOTE | 2022-01-09 12:54 | Magnetic Resonance Report ---
Brain MRI WITHOUT CONTRAST HISTORY: Left face and arm numbness. evaluate for CVA TECHNIQUE: Multiplanar multisequence MRI of the brain was performed without the use of contrast. COMPARISON STUDY: Head CT 01/09/2022. FINDINGS: There is a 7 mm focus of restricted diffusion to within the right thalamus on image 14. Thi s is consistent with an acute lacunar infarct. The midline structures are intact. The major vascular flow-voids at the skull base are well-maintained. The orbits are unremarkable. Small retention cyst w ithin the left maxillary sinus. The mastoid air cells are clear. The ventricles and sulci are within normal limits. There is no mass, hematoma, midline shift shift. A few scattered punctate foci of T2 h yperintensity seen within the periventricular white matter of the supratentorial brain. These are non specific but favor mild microvascular ischemic change. IMPRESSION: A 7 mm acute lacunar infarct within the right thalamus. ACT 112: Negative or not required by law. Electronically signed by: Manoj Wilkerson M.D. 01/09/2022 12:52 PM
[2022-01-09] MEDS ORDERED: PHARMACIST DISCHARGE MED REC CONSULT PRN (13:28)
[2022-01-09] MEDS ORDERED: ACETAMINOPHEN 325 MG TAB PO PRN (13:28)
[2022-01-09] MEDS ORDERED: traMADol HCL 50 MG TABLET PO PRN (13:28)
[2022-01-09] MEDS ORDERED: POLYETHYLENE (MIRALAX) 17 GM PACK PO PRN (13:28)
[2022-01-09] MEDS ORDERED: HYDROcodone/ACETAMINOPHEN 10/325 TAB PO PRN (13:28)
--- NOTE | 2022-01-09 13:48 | Magnetic Resonance Report ---
MR cervical spine wo con CLINICAL HISTORY: Previous C3-4 fusion. Number within the left arm since this morning with no histor y of stroke. COMPARISON: 12/09/2018 TECHNIQUE: Multiplanar multisequence images of the Cervical Spine were performed without IV contrast . FINDINGS: The patient is again status post hysterectomy and intervertebral body fusion at C3-4. No acute abnorm ality is seen. Slight straightening and reversal of the expected cervical lordosis is again seen. The heights of the vertebral bodies are maintained. The vertebral bodies are in anatomic alignment. Homo geneous marrow signal is seen without evidence for marrow edema or marrow replacement. The odontoid i s intact and the atlantoaxial articulation is within normal limits. The craniocervical junction is wi thin normal limits. Homogeneous signal is seen within the spinal cord. C2-3: The disc space height is maintained. There are no focal disc protrusions or extrusions identi fied. The spinal canal is patent with no encroachment upon the spinal cord. The neural foramen are p atent bilaterally. There is no evidence for nerve root encroachment. The apophyseal joints are within normal limits. C3-4: There is again anterior vertebral body fusion with moderate disc space narrowing and disc/oste ophyte complex present. This does encroach upon the spinal canal anteriorly abuts the anterior shila in of the spinal cord which is unchanged. There is again loss of CSF surrounding the spinal cord with the AP diameter of thecal sac again measuring approximately 7 mm. Findings are again characteristic of mild to moderate central canal stenosis. No significant foraminal stenosis is identified. C4-5: This is the disc space level below spinal fusion. There is now moderate disc space narrowing w ith disc/osteophyte complex present. There are no focal disc protrusions or extrusions identified. However, this encroaches upon the spinal canal anteriorly and abuts the anterior margin of the spinal cord. There is loss of CSF surrounding the spinal cord and the findings are characteristic of modera te central canal stenosis. The AP diameter of the thecal sac at this level is 7 mm. There is no defin ite foraminal encroachment. C5-6: There is mild disc space narrowing with mild bulging annulus present. There are no focal disc protrusions or extrusions identified. This encroaches upon the spinal canal anteriorly and abuts th e anterior margin of the spinal cord without compressing or deforming it. There is loss of CSF surrou nding the spinal cord with findings characteristic of mild central canal stenosis. AP diameter measur es 8 mm at this level. The neural foramen are patent bilaterally. There is no evidence for nerve root encroachment. The apophyseal joints are within normal limits. C6-7: The disc space height is maintained. There are no focal disc protrusions or extrusions identi fied. The spinal canal is patent with no encroachment upon the spinal cord. The neural foramen are p atent bilaterally. There is no evidence for nerve root encroachment. The apophyseal joints are within normal limits. C7-T1: The disc space height is maintained. There are no focal disc protrusions or extrusions ident ified. The spinal canal is patent with no encroachment upon the spinal cord. The neural foramen are patent bilaterally. There is no evidence for nerve root encroachment. The apophyseal joints are withi n normal limits. IMPRESSION: 1. Compared to the previous study, there is stable vertebral body fusion at C3-4 with disc/osteophyt e complex again seen encroaching upon the spinal canal and producing mild to moderate central canal s tenosis. 2. There is again disc/osteophyte complex also present at C4-5 with moderate central canal stenosis p resent. 3. There is now bulging annulus and evidence for mild central canal stenosis at C5-6. 4. No definite focal disc protrusion/herniation or focal nerve root encroachment is identified. ACT 112: Negative or not required by law. Electronically signed by: Pantera Daniels M.D. 01/09/2022 1:46 PM
[2022-01-09] MEDS ORDERED: ENOXAPARIN INJ 40 MG/0.4 ML SYR SQ SCH (14:00)
[2022-01-09] MEDS: ATORVASTATIN 40 MG TAB PO SCH (15:19)
--- NOTE | 2022-01-09 15:36 | XCELERA ---
[id number]
--- NOTE | 2022-01-09 16:28 | Electrocardiogram Report ---
Test Reason : Blood Pressure : / mmHG Vent. Rate : 078 BPM Atrial Rate : 078 BPM P-R Int : 192 ms QRS Dur : 110 ms QT Int : 392 ms P-R-T Axes : 057 -56 044 degrees QTc Int : 446 ms Normal sinus rhythm Incomplete right bundle branch block Left anterior fascicular block Abnormal ECG When compared with ECG of 19-MAR-2021 11:02, No significant change was found Confirmed by Can William ([id number]) on 01/09/2022 4:27:25 PM Referred By: Confirmed By:Can William
--- NOTE | 2022-01-09 17:28 | Neurology Consultation ---
Date of Consultation January 09, 2022 Assessment & Plan (1) Acute CVA (cerebrovascular accident): Acute ischemic lacunar infarct within the right thalamus presenting with left-sided numbness, face and arm, and subtle impairment of facility affecting the left hand. Pertinent stroke risk factors for this patient include cigarette smoking and hypertension. I agree with initiation of aspirin 81 mg/day and Lipitor 40 mg/day for secondary stroke risk reduction. Smoking cessation needs to be stressed as well. Continued monitoring and treatment of hypertension as an outpatient. Would recommend 30-day mobile cardiac outpatient telemetry. Findings on echocardiography including borderline global hypokinesis, mild aortic root dilatation and moderate dilatation of the inferior vena cava will likely need monitoring going forward. Does not appear to require inpatient rehabilitation services at this time. No further immediate recommendations. Patient may follow-up with me in neurology clinic if he chooses. If so, would like to see him after completion of 30-day mobile cardiac outpatient telemetry. History of Present Illness Reason for Consultation: Stroke Requesting Physician: ABBEY Ruiz Attending Physician: Pratima Valderrama MD History of Present Illness The patient is a 66-year-old male who presented to the emergency department this morning with a chief complaint of numbness affecting the left side of the face and upper limb. His symptoms began acutely at around 8:30 in the morning while he had his dog at the finisher machine's office. His symptoms have been fairly persistent and have not significantly worsened or improved. He does report some mild clumsiness with the left hand. He is right-handed. No difficulty with swallowing or change in speech. No diplopia or vision loss. No headache. Patient denies experiencing any motor or sensory symptoms to the lower limbs. No prior history of stroke or TIA. Past medical history notable for hypertension and cigarette smoking. He is employed part-time in construction. He does not take aspirin or other blood thinners. He did have a telestroke consultation with a specialist at [facility] although his deficits were minimal and he was not felt to be an appropriate candidate for administration of thrombolytics. Patient's initial imaging including CT angiography of the head and neck and CT of the head were unremarkable. A follow-up brain MRI did reveal a small acute ischemic infarct within the right thalamus measuring about 7 mm in size. There was an element of chronic microvascular ischemic change as well. I reviewed the images as well as the radiologist interpretation of this test and agree. History also notable for cervical spinal fusion. Patient did have a cervical spine MRI completed as well which revealed fusion at C3-4 with an associated disc osteophyte complex resulting in mild to moderate central canal stenosis as well as a disc osteophyte complex at C4-5 with moderate central canal stenosis and a bulging annulus at C5-6. I reviewed these images as well. Allergies Allergy/AdvReac Type Severity Reaction Status Date / Time No Known Drug Allergies Allergy Verified 01/09/22 10:35 Home Medications Medication Instructions Recorded Confirmed Type finasteride 5 mg tablet (Proscar) 5 mg PO QAM #90 tab 08/25/21 01/09/22 Rx indapamide 2.5 mg tablet 2.5 mg PO QAM #90 tab 09/01/21 01/09/22 Rx omeprazole 20 mg capsule,delayed 20 mg PO QAM #90 cap 09/08/21 01/09/22 Rx release ofloxacin 0.3 % ear drops 5 drp OTIC (EAR) BID #10 ml 10/21/21 01/09/22 Rx hydrocodone 10 mg-acetaminophen 1 tab PO BID PRN #60 tab 12/18/21 01/09/22 Rx 325 mg tablet tramadol 50 mg tablet 50 mg PO Q6H PRN #30 tab 01/05/22 01/09/22 Rx diclofenac sodium 50 mg 50 mg PO QAM 01/09/22 01/09/22 History tablet,delayed release lisinopril 40 mg tablet 40 mg PO QAM 01/09/22 01/09/22 History Patient History Medical History BPH w urinary obs/LUTS Cervical disc disease GERD (gastroesophageal reflux disease) controlled Hiatal hernia Hypertension Internal hemorrhoids Lumbar radiculitis Lumbar spinal stenosis Osteoarthritis Seborrheic dermatitis Seborrheic keratosis Sleep apnea CPAP Surgical History History of herniorrhaphy Hx of colonoscopy S/P arthroscopic knee surgery Status post cervical spinal fusion C3-C4 ACDF with left iliac crest bone graft (05/23/18): Grade 2 view, Glidescope #4.0, ETT 8.0 at [facility] Family History Aunt Family history of diabetes mellitus Uncle Family history of diabetes mellitus Grandmother (Paternal) Family history of diabetes mellitus Grandfather (Paternal) Family history of diabetes mellitus Father Family history of diabetes mellitus Social History Smoking Status: Current every day smoker Cigarettes Per Day: 10 cigs/day (intermittent x 30 years); Second Hand Exposure: No; Do You Dip or Chew Tobacco: No; Tobacco Cessation Education Requested by Patient: No Hx Alcohol Use: No Hx Substance Use: No Preferred Language: Danish Communication Ability: Effective 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 Beliefs That Will Affect Care: None marital status: Current Living Situation: Spouse current occupational status: employed Other Information That Helps Us Care for You: Yes (recent neck surgery) Feels Safe at Home: Yes Safety Concerns: Feels Safe At This Time Assistive Devices: Walker Assistive Devices Comment: reading glasses but are not here Review of Systems Constitutional: no fever and no chills Eyes: no blind spots and no diplopia Ear, Nose, Mouth, Throat: no ear pain and no hearing loss Respiratory: no cough and no dyspnea Cardiovascular: no chest pain and no palpitations Gastrointestinal: no constipation and no diarrhea/loose stools Genitourinary: no urinary incontinence or no urinary urgency Musculoskeletal: no muscle weakness and no muscle atrophy Integumentary: no rash and no lesions Neurologic: as per Subjective / HPI, + localized weakness and + loss of sensation; no tremor(s), no seizure-like activity, no syncope, no headache(s), no abnormal speech, no confusion and no memory loss Psychiatric: no behavioral changes, no depression, no abnormal sleep pattern and no anxiety Hematologic / Lymphatic: no easy bruising and no lymphadenopathy Exam (Neuro) Constitutional: well developed and well nourished; no acute distress Eyes: normal visual ingram by confrontation, PERRL, normal accommodation and EOM intact bilaterally; no fundoscopic abnormality, no nystagmus and no papilledema Cardiovascular: Vessels: normal carotid upstroke; no carotid bruit Neurologic: Oriented to:: Person, Place and Time Memory: Short Term Intact and Remote Intact Attention: Span Intact and Concentration Intact Language: Naming Objects and Repeating Phrases Speech Fluency: negative Dysarthria Speech Aphasia: negative Aphasia Fund of Knowledge: Current Events, Past History and Vocabulary Cranial Nerves: Normal II (Visual ingram full to confrontation, visual acuity normal), III, IV, (Pupils equal round reactive to light and accommodation, eye movements normal), V (Facial sensation intact), VII (There is no facial droop or weakness), VIII (Hearing intact), IX, X (Palate elevates to midline), XI (Shoulder shrug intact) and XII (Tongue protrudes to midline) Motor Strength: Normal Lower Extremities and Normal Upper Extremities; negative Pronator Drift Motor Tone: Normal Lower Extremities and Normal Upper Extremities Muscle Bulk/Involuntary Movements: No Involuntary Movements; negative Muscle Atrophy Sensation: Light Touch Intact, Pain/Temperature Intact, Vibration Intact and Proprioception Intact Coordination: Normal; negative Limited Balance, Dysdiadochokinesia, Finger-Nose Abnormal or Heel-Rojas Abnormal Deep Tendon Reflexes: Rt Triceps: 2+, Lt Triceps: 2+, Rt Biceps: 2+, Lt Biceps: 2+, Rt Brachioradialis: 2+, Lt Brachioradialis: 2+, Rt Patellar: 2+, Lt Patellar: 2+, Rt Ankle: 2+ and Lt Ankle: 2+ Special Tests: negative Babinski Present Gait: Normal Station and Gait Details: Patient has slightly impaired facility of fine finger movements for the left hand, no pronator drift, no fix with arm roll. No facial droop. No gross weakness of the arm or leg noted. Sensation grossly intact to all modalities as well although does perceive some subtle sensory difference for the left hand and left side of the face. Results & Data ([facility]) Vital Signs (Past 12 Hours) Vital Signs Temp Pulse Pulse Resp BP BP Pulse Ox 01/09/22 14:31 36.7 C 73 18 165/105 H 98 01/09/22 13:57 73 01/09/22 13:43 36.7 C 73 20 161/105 H 98 01/09/22 11:06 37 C 82 19 160/113 H 99 01/09/22 10:51 77 16 143/110 H 95 01/09/22 10:10 81 22 168/103 H 98 01/09/22 09:41 36.4 C L 85 18 162/116 H 98 Laboratory Results WBC 7.49, hemoglobin 14.5, hematocrit 41.4, MCV 88.5, platelet count 192, sodium 131, potassium 3.7, BUN 15, creatinine 0.86, glucose 96, calcium 9.9, magnesium 1.7, AST 17, ALT 13, troponin less than 0.03, triglycerides 83, cholesterol 197, LDL 123, VLDL 17, HDL 47, TSH 2.[address] of the head, CT angiography of the head and neck, brain MRI, and cervical spine MRI are as described in history of present illness, I reviewed the images as well as the radiologist interpretation of these tests. An echocardiogram completed today revealed no interatrial shunt, left ventricular systolic function low normal, ejection fraction 50 to 55%, borderline global hypokinesis of the left ventricle, moderate concentric left ventricular hypertrophy, grade 1 diastolic dysfunction, mild aortic root dilatation, mild to moderate mitral regurgitation, moderate dilatation of the inferior vena cava, left atrial size normal, no atrial septal defect. An electrocardiogram revealed normal sinus rhythm, incomplete right bundle branch block, left anterior fascicular block. Coding Level of Care Code 62104 Initial Inpt Care Lvl 3 Diagnoses Acute CVA (cerebrovascular accident) I63.9
[2022-01-10 07:18] LABS: Basophils # (auto) 0.01 K/uL (0-0.2); Basophils % (auto) 0.2 %; Eosinophils # (auto) 0.11 K/uL (0-0.5); Eosinophils % (auto) 1.9 %; Hematocrit (blood only) 41.3 % (42-52); Hemoglobin 14.5 g/dL (14.0-18.0); Immature Granulocytes # (auto) 0.01 K/uL (0.00-0.02); Immature Granulocytes % (auto) 0.2 %; Lymphocytes # (auto) 1.49 K/uL (1.2-3.4); Lymphocytes % (auto) 25.3 %; Mean Corpuscular Hemoglobin 30.8 pg (25-34); Mean Corpuscular Hgb Conc 35.1 g/dL (32-36); Mean Corpuscular Volume 87.7 fL (80-100); Mean Platelet Volume 10.8 fL (7.4-10.4); Monocytes # (auto) 0.59 K/uL (0.11-0.59); Neutrophils # (auto) 3.68 K/uL (1.4-6.5); Neutrophils % (auto) 62.4 %; Platelet Count 176 K/uL (130-400); RDW Standard Deviation 42.3 fL (36.4-46.3); Red Blood Count 4.71 M/uL (4.7-6.1); White Blood Count 5.89 K/uL (4.8-10.8)
[2022-01-10 07:43] LABS: BUN Creatinine Ratio 21.2 (10-20); Calcium 8.6 mg/dl (8.5-10.1); Chol HDL Ratio 4.2 (0-5); Creatinine Clr Calc Pharmacy 93.8 ml/min; Est GFR (African American) 105.2 ml/min; Est GFR (Non-African American) 90.8 ml/min; Potassium 3.9 mmol/L (3.5-5.1)
[2022-01-10] MEDS: ATORVASTATIN 40 MG TAB PO SCH (07:46)
[2022-01-10 08:09] LABS: Estimated Average Glucose 123 mg/dl; Hemoglobin A1C 5.9 % (4.5-5.6)
--- NOTE | 2022-01-10 08:27 | Electrocardiogram Report ---
Test Reason : Blood Pressure : / mmHG Vent. Rate : 069 BPM Atrial Rate : 069 BPM P-R Int : 212 ms QRS Dur : 114 ms QT Int : 408 ms P-R-T Axes : 070 -60 024 degrees QTc Int : 437 ms Sinus rhythm with 1st degree A-V block Left anterior fascicular block Abnormal ECG When compared with ECG of 09-JAN-2022 09:50, Incomplete right bundle branch block is no longer Present Confirmed by Can William ([id number]) on 01/10/2022 8:27:12 AM Referred By: REFERRED SELF Confirmed By:Can William
[2022-01-10] MEDS ORDERED: FINASTERIDE 5 MG TAB PO SCH (09:00)
[2022-01-10] MEDS ORDERED: INDAPAMIDE 1.25 MG TAB PO SCH (09:00)
[2022-01-10] MEDS ORDERED: DICLOFENAC SODIUM 25 MG TABDR PO SCH (09:00)
[2022-01-10] MEDS ORDERED: PANTOprazole 40 MG TAB PO SCH (09:00)
[2022-01-10] MEDS ORDERED: lisinopril 40 MG TAB PO SCH (09:00)
[2022-01-10] MEDS ORDERED: ASPIRIN 81 MG ECTAB PO SCH (09:00)
[2022-01-10] MEDS ORDERED: STROKE PATIENT DISCHARGE STA (09:46)
--- NOTE | 2022-01-10 09:52 | Discharge Summary ---
Date of Service January 10, 2022 Admission HPI Per Admitting Provider 66 YOM with past medical history of: HTN, Sinus congestion, ARIANA, DJD- lumbar, cervical with radiculopathy. Patient comes to the emergency room today for complaints of left arm numbness, tingling and associated left face, tongue numbness. This started at around 0830 this morning while he was at the veterinary office with his dog. He went to sit in chair and noticed onset of the above. This occurred at the same time and did was not progressive, it was associated with a headache that is different than his normal headaches that he got from his sinuses. This headache was noted to be on the top of his head. This has resolved, but remains with the numbness along the left face below eye into jaw, neck normal, and then down his arm to his fingers. He was a stroke alert on arrival and had CT of the head CTA of the head and neck performed that is negative for acute process. He was not a candidate for Thrombolytics secondary to NIH of 1. He is noted to be hypertensive on arrival. He does not use his CPAP currently secondary to recall and prior to that recall he had poor compliance secondary to sinus pain and congestion for which he follows with Dr. Ceja. For his cervical spine disease the patient did under go a cervical Discectomy and correction of kyphosis at c3-c4 level in 2018. He endorses that he was working on some tile last week and heard a crack, but was not associated with any radiculopathy, pain, or change. Patient will be admitted to complete his CVA workup and follow his symptomatology as may also be cervical radiculopathy in nature. He was given ASA in the EMD. Will place on daily asa, check lipids in the morning, ECHO. Patient COVID test on admission is: NEGATIVE Principal Diagnosis Acute CVA Discharge Exam Constitutional and general: No acute distress, looks biologic age Head and face: No puffiness, atraumatic Eyes: No scleral icterus, extraocular movements normal Neck: Supple, no JVD Musculoskeletal: No acute joint swelling, no bony abnormalities Skin/dermatologic/integument: No rash, no purpura Hematologic and lymphatic: pallor +, no petechia Gastrointestinal/abdomen: Nondistended, soft, nonacute Neurologic: Cranial nerves intact, nonfocal Psychiatry: Awake, alert, pleasant, communicative Cardiovascular: Heart rhythm regular, no rub, no murmur, no gallop Respiratory: Chest movements equal, no use of accessory muscles, no adventitious sounds Extremities: No edema, no cyanosis Vital Signs Temp Pulse Pulse Resp BP Pulse Ox 01/10/22 09:39 36.4 C L 72 20 139/96 98 01/10/22 09:23 73 01/10/22 06:54 36.4 C L 72 20 139/96 98 01/10/22 04:05 36.5 C 76 20 148/91 H 95 01/10/22 00:10 71 01/09/22 23:41 36.7 C 73 18 127/77 95 01/09/22 19:31 36.6 C 79 18 133/79 93 01/09/22 14:31 36.7 C 73 18 165/105 H 98 01/09/22 13:57 73 01/09/22 13:43 36.7 C 73 20 161/105 H 98 01/09/22 11:06 37 C 82 19 160/113 H 99 01/09/22 10:51 77 16 143/110 H 95 01/09/22 10:10 81 22 168/103 H 98 Intake and Output 01/09/22 01/10/22 01/10/22 22:59 06:59 14:59 Intake Total 240 / 906.667 200 / 906.667 Balance 240 / 906.667 200 / 906.667 Intake: Oral 240 / 440 200 / 440 Other: Weight 83.4 kg 83.4 kg Weight Measurement Method Built in [facility] Patient Weight 01/11/22 07:59 Weight 83.4 kg Discharge Data Allergies Allergy/AdvReac Type Severity Reaction Status Date / Time No Known Drug Allergies Allergy Verified 01/09/22 10:35 Consultations 01/09/22 11:02 ED Decision to Admit Stat 01/09/22 13:28 Consult Neurology Routine Ordered Studies 01/09/22 09:55 CT angio head w con Stat CT angio neck with con Stat CT head/brain wo con Stat 01/09/22 11:21 MR brain wo con Routine 01/09/22 12:03 MR cervical spine wo con Routine Hospital Course (1) Stroke-like symptoms: MRI confirmed acute 7 mm right thalamic lacunar infarctstroke evaluation and management; no large vessel occlusion on CTA head and neck and no significant stenosis Echo-Mild hypokinesis Aspirin, high-dose statin (LDL around 120) Smoking cessation recommended Patient insistent on going home, symptoms about 20% better; unwilling to wait even for PT/OT evaluation (though appears quite independent part of routine stroke evaluation and management) Outpatient OT- PT prescription given 30-day event monitor Cardiology and neurology follow-up along with PCP (2) Cervical disc disease: History of cervical discectomy and correction with anterior interbody fusion in 2018 - C-spine MRI does show moderate stenosis; outpatient spine surgery (3) BPH w urinary obs/LUTS: Continue with finasteride (4) Sleep apnea: CPAP AutoPap at home - compliance prior to recall was 56% secondary to nasal congestion - does not wan to wear in house CPAP (5) GERD (gastroesophageal reflux disease): Stable continue with omeprazole (6) Chronic sinusitis: Saline spray if needed previously stopped intranasal corticosteroid as symptoms resloved - follow (7) Lumbar spinal stenosis: L3-L5 instrumentatin and fusion to L3-L4 perofmed in April 21 - pain controlled at this time no radiculopathy (8) Hyponatremia: Sodium slightly worse, unclear significance but could have SIADH; as noted , he is unwilling to wait and if I do not discharge him will go AMA which I did not think was in his best interest Should be followed, at present modest fluid restriction recommended Sodium slightly worse, asymptomatic; unclear significance, could be SIADH As noted, is unwilling to wait and if I do not discharge him will go against medical advice which is not in his best interest Should be followed, at present modest fluid restriction advised Total Time Total Time Spent Total Time Spent (In Minutes): 40 Discharge Plan Discharge Items Patient Disposition: Home - Self-Care Reason For Visit: FACE AND ARM NUMBNESS, R/O CVA Discharge Diagnosis: Acute CVA Activity: As commented below Activity Comment: As tolerated Non-emergency contact: Primary Care Provider and Neurologist Call non-emergency contact if: your symptoms worsen Follow-up/Referrals: Can William MD [Physician] - (Admitted with acute stroke, echo shows hypokinesis and borderline systolic dysfunction) Antonio Warren MD [Physician] - (About 4 weeks) Burton Nolasco MD [Primary Care Provider] - Logan Arshad DO [Surgeon] - (1 to 2 weekscervical stenosis on MRI) Diet: Heart Healthy Fluids: 1500ml (6 cups) Addtl Attending Provider Instructions: Please see your primary care provider within 1 to 2 weeks; Complete smoking cessation recommended Pending Studies at Discharge: No Stand-Alone Forms: Medications to Prevent Stroke, My [facility], Smoking Cessation Medications and DC Order Prescriptions: New atorvastatin 40 mg Tablet 80 mg PO QAM 60 Days Qty: 120 RF: 2 aspirin 81 mg Tablet,Delayed Release (Dr/Ec) 81 mg PO QAM 90 Days Qty: 90 RF: 3 Continued finasteride [Proscar] 5 mg tablet 5 mg PO QAM Qty: 90 RF: 3 omeprazole 20 mg capsule,delayed release(DR/EC) 20 mg PO QAM Qty: 90 RF: 3 hydrocodone-acetaminophen 10-325 mg tablet 1 tab PO BID PRN (Reason: pain) Qty: 60 RF: 0 tramadol 50 mg tablet 50 mg PO Q6H PRN (Reason: pain, moderate) Qty: 30 RF: 5 ofloxacin 0.3 % drops 5 drp otic (ear) BID Qty: 10 RF: 4 indapamide 2.5 mg tablet 2.5 mg PO QAM Qty: 90 RF: 3 diclofenac sodium 50 mg tablet,delayed release (DR/EC) 50 mg PO QAM RF: 0 lisinopril 40 mg tablet 40 mg PO QAM RF: 0 Discharge Orders: Discharge Order (Routine); Ordered 01/10/22 Ordered By: Husam Patel Admission Data Admit Date/Time: 01/09/22 11:34 Attending Provider: Husam Patel Admit Provider: Pratima Valderrama Primary Care Provider: Burton Nolasco Other Providers: Pratima Valderrama ; Antonio Warren Other Interventions: Discharge Summary Assessment (RN) Last Done: 01/10/22 09:39 Coding Level of Care Code D/C DAY MANAGEMENT >30 MINS Diagnoses Stroke-like symptoms R29.90 Cervical disc disease M50.90 BPH w urinary obs/LUTS N40.1; N13.8 Sleep apnea G47.30 GERD (gastroesophageal reflux disease) K21.9 Chronic sinusitis J32.9 Lumbar spinal stenosis M48.061 Hyponatremia E87.1
--- NOTE | 2022-01-10 12:09 | Pharmacy Report ---
Pharmacist Stroke Counseling - Date of Service January 10, 2022 - Scope: Pharmacy has been consulted to provide medication discharge counseling for this patient admitted with ischemic stroke as per the Pharmacist Discharge Counseling for Stroke Patients Protocol. - Medications on Discharge: Home Medications Medication Instructions Recorded Confirmed diclofenac sodium 50 mg 50 mg PO QAM 01/09/22 01/09/22 tablet,delayed release lisinopril 40 mg tablet 40 mg PO QAM 01/09/22 01/09/22 New Rx's Medication Instructions Recorded finasteride 5 mg tablet (Proscar) 5 mg PO QAM #90 tab 08/25/21 indapamide 2.5 mg tablet 2.5 mg PO QAM #90 tab 09/01/21 omeprazole 20 mg capsule,delayed 20 mg PO QAM #90 cap 09/08/21 release ofloxacin 0.3 % ear drops 5 drp OTIC (EAR) BID #10 ml 10/21/21 hydrocodone 10 mg-acetaminophen 1 tab PO BID PRN #60 tab 12/18/21 325 mg tablet tramadol 50 mg tablet 50 mg PO Q6H PRN #30 tab 01/05/22 aspirin 81 mg tablet,delayed 81 mg PO QAM 90 Days #90 tab 01/10/22 release atorvastatin 40 mg tablet 80 mg PO QAM 60 Days #120 tab 01/10/22 - Action: The above medications, specifically ones for stroke treatment/prophylaxis, have been reviewed in detail with the patient and/or patient loss prevention representative(s) prior to discharge. This includes indication, common adverse reactions, drug interactions, and medication administration. Medication counseling has been employed using the teach-back method to ensure understanding. - Outcome: The patient and/or patient loss prevention representative(s) have demonstrated understanding of the medications. Additional comments: Reviewed s/s bleeding while on aspirin and when to contact provider. Discussed the need to notify provider if medical or dental procedure is scheduled in the future due to risk of increased bleeding. Reviewed administration and potential side effects of atorvastatin. Patient stated understanding of information provided. Thank you for allowing pharmacy to be involved in the care of this patient. Please call [phone] with any additional questions
[2022-01-11] MEDS ORDERED: ATORVASTATIN 40 MG TAB PO SCH (09:00)
[2022-01-11] MEDS ORDERED: lisinopril 20 MG TAB PO SCH (09:00)
== END 2022-01-10 11:05 | disposition home or self-care (01) | DRG 66 ==
LOC: ED 09:38 → SUATTDRO 11:34 → 2N 11:34

== ENCOUNTER 2024-05-08 08:57 | Inpatient (IN) ==
--- NOTE | 2024-04-19 10:50 | PAT Medication Instructions ---
Medication Instructions Date of Service April 19, 2024 Home Medications Medication Instructions Recorded finasteride 5 mg tablet (Proscar) 5 mg PO QAM #90 tabs 08/02/23 diclofenac sodium 50 mg See Rx Instructions .Route 01/05/24 tablet,delayed release .COMPLEX #30 tabs dicyclomine 10 mg capsule 10 mg PO TID #270 caps 01/05/24 indapamide 2.5 mg tablet See Rx Instructions .Route 01/05/24 .COMPLEX #90 tabs lisinopril 40 mg tablet See Rx Instructions .Route 01/05/24 .COMPLEX #90 tabs omeprazole 20 mg capsule,delayed See Rx Instructions .Route 01/05/24 release .COMPLEX #90 caps pramipexole 0.25 mg tablet 0.25 mg PO QPM PRN restless leg(s) 01/05/24 #30 tabs tramadol 50 mg tablet 50 mg PO BID PRN pain, moderate 01/06/24 #60 tabs aspirin 81 mg tablet,delayed See Rx Instructions .Route 03/30/24 release .COMPLEX #90 tabs hydrocodone 10 mg-acetaminophen 1 tab PO BID PRN pain #60 tabs 04/03/24 325 mg tablet gabapentin 300 mg capsule 300 mg PO .COMPLEX #90 caps 04/11/24 Medication List: finasteride 5 mg tablet (Proscar) 5 mg PO QAM diclofenac sodium 50 mg tablet,delayed release See Rx Instructions .Route .COMPLEX dicyclomine 10 mg capsule 10 mg PO TID indapamide 2.5 mg tablet See Rx Instructions .Route .COMPLEX lisinopril 40 mg tablet See Rx Instructions .Route .COMPLEX omeprazole 20 mg capsule,delayed release See Rx Instructions .Route .COMPLEX pramipexole 0.25 mg tablet 0.25 mg PO QPM PRN restless leg(s) tramadol 50 mg tablet 50 mg PO BID PRN pain, moderate aspirin 81 mg tablet,delayed release See Rx Instructions .Route .COMPLEX hydrocodone 10 mg-acetaminophen 325 mg tablet 1 tab PO BID PRN pain gabapentin 300 mg capsule 300 mg PO .COMPLEX atorvastatin 80 mg tablet 80 mg PO QAM MEDICATION INSTRUCTIONS: ASK your surgeon for instructions diclofenac sodium 50 mg tablet,delayed release See Rx Instructions .Route .COMPLEX ASK your prescriber and surgeon aspirin 81 mg tablet,delayed release See Rx Instructions .Route .COMPLEX DO NOT take the morning of surgery dicyclomine 10 mg capsule 10 mg PO TID indapamide 2.5 mg tablet See Rx Instructions .Route .COMPLEX lisinopril 40 mg tablet See Rx Instructions .Route .COMPLEX Take morning of surgery With a small sip of water, OTHERWISE NOTHING TO EAT OR DRINK AFTER MIDNIGHT: atorvastatin 80 mg tablet 80 mg PO QAM omeprazole 20 mg capsule,delayed release See Rx Instructions .Route .COMPLEX finasteride 5 mg tablet (Proscar) 5 mg PO QAM gabapentin 300 mg capsule 300 mg PO .COMPLEX tramadol 50 mg tablet 50 mg PO BID PRN pain, moderate hydrocodone 10 mg-acetaminophen 325 mg tablet 1 tab PO BID PRN pain Take evening before surgery gabapentin 300 mg capsule 300 mg PO .COMPLEX tramadol 50 mg tablet 50 mg PO BID PRN pain, moderate hydrocodone 10 mg-acetaminophen 325 mg tablet 1 tab PO BID PRN pain pramipexole 0.25 mg tablet 0.25 mg PO QPM PRN restless leg(s) Other Notes If you have any questions please call us at [phone] or [phone] or [phone] or [phone]
--- NOTE | 2024-04-24 10:12 | Anesthesiology Consultation ---
Date of Service April 24, 2024 Assessment & Plan (1) Encounter for pre-operative examination: - PCP 05/01/24 and cardiology 05/03/24 pre-operative evaluations. - medical clearance 04/18/24: "...low to moderate risk...cleared for scheduled surgery..." Chart Review Chart Review: Pending: Refer to Additional Notes / Consult section and Patient seen in Pre Admission Testing Teaching & Discussion Pre-Anesthesia Teaching/Discussion Notes: Instructed NPO after midnight before surgery, except medications with 15 cc of water. Medication instructions provided according to the PAT guidelines. History Surgery Operation Date: 05/08/24 11:25 Proposed Procedures p L2-S1 Decompression and Fusion, L3-L4 Hardware Removal with Spinal Cord Monitoring - Logan Arshad, Height/Weight Height: 6 ft 1 in Weight: 83 kg Allergies Allergy/AdvReac Type Severity Reaction Status Date / Time No Known Drug Allergies Allergy Verified 04/18/24 08:06 Medications Home Medications Medication Instructions Recorded Confirmed Last Taken finasteride 5 mg tablet (Proscar) 5 mg PO QAM #90 tabs 08/02/23 04/18/24 Unknown diclofenac sodium 50 mg See Rx Instructions .Route 01/05/24 04/18/24 Unknown tablet,delayed release .COMPLEX #30 tabs dicyclomine 10 mg capsule 10 mg PO TID #270 caps 01/05/24 04/18/24 Unknown indapamide 2.5 mg tablet See Rx Instructions .Route 01/05/24 04/18/24 Unknown .COMPLEX #90 tabs lisinopril 40 mg tablet See Rx Instructions .Route 01/05/24 04/18/24 Unknown .COMPLEX #90 tabs omeprazole 20 mg capsule,delayed See Rx Instructions .Route 01/05/24 04/18/24 Unknown release .COMPLEX #90 caps pramipexole 0.25 mg tablet 0.25 mg PO QPM PRN restless leg(s) 01/05/24 04/18/24 Unknown #30 tabs tramadol 50 mg tablet 50 mg PO BID PRN pain, moderate 01/06/24 04/18/24 Unknown #60 tabs aspirin 81 mg tablet,delayed See Rx Instructions .Route 03/30/24 04/18/24 Unknown release .COMPLEX #90 tabs hydrocodone 10 mg-acetaminophen 1 tab PO BID PRN pain #60 tabs 04/03/24 04/18/24 Unknown 325 mg tablet gabapentin 300 mg capsule 300 mg PO .COMPLEX #90 caps 04/11/24 04/18/24 Unknown atorvastatin 80 mg tablet 80 mg PO QAM 04/18/24 04/18/24 Unknown Past Medical History Medical History (Updated 04/24/24 @ 10:24 by Hanny Nunez PA-C) Anemia pt denies BPH w urinary obs/LUTS Dilated aortic root Emphysema/COPD patient unsure-no inhalers GERD (gastroesophageal reflux disease) controlled, stable per pt Hard of hearing Hiatal hernia History of stroke (2021) 2021>no deficits Hyperlipidemia Hypertension controlled, stable per pt Internal hemorrhoids pt denies recent issues Restless leg syndrome Seborrheic dermatitis Seborrheic keratosis Sleep apnea CPAP-compliant Spinal stenosis Patient denies h/o seizures, heart attack, heart failure, DM, blood clots/DVTs or blood transfusions. Exercise / Class Metabolic Activity II 4-5 Yardwork/Stairs/Walk up hill (denies chest discomfort or shortness of breath with one flight of stairs) Past Family History Family History Aunt Family history of diabetes mellitus Uncle Family history of diabetes mellitus Grandmother (Paternal) Family history of diabetes mellitus Grandfather (Paternal) Family history of diabetes mellitus Father Family history of diabetes mellitus Other No family history of adverse response to anesthesia Past Surgical History Surgical History History of esophagogastroduodenoscopy (EGD) History of herniorrhaphy inguinal History of lumbar fusion L3-4 level April 2021 History of tonsillectomy History of tooth extraction Hx of colonoscopy (~2017) Hx of decompression of ulnar nerve rt/left Hx of vasectomy S/P arthroscopic knee surgery ? side Status post cervical spinal fusion C3-C4 ACDF with left iliac crest bone graft (05/23/18): Grade 2 view, Glidescope #4.0, ETT 8.0 at [facility] Past Anesthesia History No Hx of Anesthesia Complications and No Family Hx of Anesthesia Complications History of PONV No Hx of PONV and No Hx of Motion Sickness Social History Smoking Status: Current every day smoker (-advised and surgeon's office no tified) tobacco type: cigarettes Do You Dip or Chew Tobacco: No Smoking End Date: 11/2023 Hx Alcohol Use: No Hx Substance Use: No Review of Systems Chronic variably productive cough in morning-denies change or worsening-unsure of sputum color. Patient denies chest pain, shortness of breath, dyspnea on exertion, fever, chills, wheezing, or palpitations. Physical Exam Vital Signs Vitals BP 147/101 left arm automatic-repeat 137/86 left arm manual P 68 TEMP 97.9 SP02 98% on RA RESP 18 Physical Patient resting comfortably in chair in no acute distress, alert and oriented, responding appropriately throughout visit Mildly limited cervical extension range of motion without pain TMD 3.5 finger breadths Mallampati Score 2 Dentition: multiple caps and partial removable, denies chipped or loose teeth, implants or bridges Lungs: normal respiratory effort. Good air movement, clear throughout to auscultation, no adventitious breath sounds Cardiac: regular rate and rhythm, no murmurs noted Carotid arteries: negative bruit bilat Lab Results Anesthesia Preop Results Results Anesthesia Widget: WBC 6.27 K/ul (4.8-10.8) 04/24/24 Hgb 13.8 g/dl (14.0-18.0) L 04/24/24 Hct 38.8 % (42.0-52.0) L 04/24/24 Plt 163 K/uL (130-400) 04/24/24 Na 132 mmol/L (136-145) L 04/24/24 K 4.1 mmol/L (3.5-5.1) 04/24/24 Cl 97 mmol/L (98-107) L 04/24/24 CO2 30 mmol/L (21-32) 04/24/24 BUN 14 mg/dl (6-23) 04/24/24 Creat 0.92 mg/dl (0.6-1.4) 04/24/24 Glucose Level 93 mg/dl (70-99(Fasting)) 04/24/24 PT 10.7 Seconds (9.0-12.0) 04/24/24 PTT 26 Seconds (21-31) 04/24/24 INR 1.0 (0.9-1.1) 04/24/24 Urine Color Yellow 04/24/24 Urine Appearance Clear (Clear) 04/24/24 Urine pH 7.0 (4.5-7.5) 04/24/24 Urine Specific [place] 1.009 (1.000-1.030) 04/24/24 Urine Protein Negative (Negative) 04/24/24 Urine Glucose (UA) Negative (Negative) 04/24/24 Urine Ketones Negative (Negative) 04/24/24 Urine Blood Trace (Negative) H 04/24/24 Urine Nitrite Negative (Negative) 04/24/24 Urine Bilirubin Negative (Negative) 04/24/24 Urine Urobilinogen Negative (Negative) 04/24/24 Urine Leukocyte Esterase Negative (Negative) 04/24/24 Urine WBC (Auto) 0-5 /hpf (0-5) 04/24/24 Urine RBC (Auto) 3-5 /hpf (0-2) H 04/24/24 Urine Hyaline Casts (Auto) 0-2 /lpf (0-2) 04/24/24 Urine Epithelial Cells (Auto) 0-2 /hpf (0-2) 04/24/24 Urine Bacteria (Auto) None Seen (None Seen) 04/24/24 Blood Type O Positive 04/24/24 Antibody Screen NEGATIVE 04/24/24 Testing Electrocardiogram Date: 04/24/24 NSR, rate 66 bpm Left anterior fascicular block Incomplete RBBB Echocardiogram Date: 01/09/22 EF 50-55% Borderline global hypokinesis of LV Moderate cLVH Grade I diastolic dysfunction Mild aortic root dilatation Aortic root 4.1 cm Mild to moderate mitral regurgitation Inferior vena cava moderately dilated Pulmonary Function Test Date: 12/02/23 Mild airflow obstruction without significant postbronchodilator response. Hyperinflation is noted and diffusion capacity is mildly decreased. Other Testing Low dose lung CT 11/25/23 1. No suspicious pulmonary nodules. No change in a 5 mm right upper lobe nodule since neck CTA of January 09, 2022. This is benign given stability. Lung RADS Category: 2 - Benign appearance or behavior - Nodules with a very low likelihood of becoming a clinically active cancer due to size or lack of growth. Continue annual screening. 2. Emphysema. Head and neck CTA 01/09/22 1. No significant stenosis, occlusion, or aneurysm within the [place]. 2. No significant stenosis, occlusion, or dissection identified within the carotid or vertebral arteries.
[2024-05-08] MEDS: LR 60ML/HR IV SCH (09:42)
[2024-05-08] MEDS: CeleBREX 200 MG CAP PO SCH (09:42)
[2024-05-08] MEDS: LR 15ML/HR IV SCH (09:42)
[2024-05-08] MEDS: GABAPENTIN 300 MG CAP PO SCH ×2 (09:42→18:04)
[2024-05-08] MEDS: ACETAMINOPHEN 500 MG TAB PO SCH (09:42)
[2024-05-08] MEDS ORDERED: PROMETHAZINE HCL 6.25 MG in SODIUM CHLORIDE 0.9% 50 ML IV PRN (10:08)
[2024-05-08] MEDS ORDERED: ePHEDrine sulfate 50 MG/ML AMP IV PRN (10:08)
[2024-05-08] MEDS ORDERED: ONDANSETRON INJ 2 MG/ML 2 ML VIAL IV PRN ×2 (10:08→16:08)
[2024-05-08] MEDS ORDERED: HYDROmorphone INJ 2 MG/ML SYR/VIAL IV PRN (10:08)
[2024-05-08] MEDS ORDERED: ATROPINE SULFATE 0.1 MG/ML 10ML SYR IV PRN (10:08)
[2024-05-08] MEDS ORDERED: PROPOFOL IV EMULSION 10 MG/ML 20 ML VIAL IV ONE (10:18)
[2024-05-08] MEDS ORDERED: fentaNYL citrate PF 100 MCG/2 ML VIAL ONE (10:18)
[2024-05-08] MEDS ORDERED: DEXAMETHASONE SOD INJ 4 MG/ML VIAL ONE ×2 (10:18→10:19)
[2024-05-08] MEDS ORDERED: LIDOCAINE 2% 2 ML VIAL/AMP(20MG/ML) INFIL ONE (10:18)
[2024-05-08] MEDS ORDERED: ONDANSETRON INJ 2 MG/ML 2 ML VIAL ONE (10:18)
[2024-05-08] MEDS ORDERED: MIDAZOLAM HCL 1 MG/ML 2ML VIAL ONE (10:18)
[2024-05-08] MEDS ORDERED: ROCURONIUM BROMIDE 10 MG/ML 5 ML VIAL IV ONE ×2 (10:19→12:06)
[2024-05-08] MEDS ORDERED: LARYING-O-JET KIT (LTA) ONE (10:19)
--- NOTE | 2024-05-08 10:36 | History & Physical Bridge Note ---
Date of Service May 08, 2024 History & Physical Bridge Note I have examined the patient, reviewed the History & Physical and in the interval since the performance of the History & Physical I have noted the following changes of clinical significance: no changes noted
--- NOTE | 2024-05-08 10:37 | History & Physical Report ---
Date of Service May 08, 2024 Assessment & Plan (1) Lumbar spinal stenosis: Plan: L2-S1 decompression and fusion L3-L4 hardware removal History of Present Illness Chief Complaint: Back and leg pain Primary Care Provider: Burton Nolasco MD This is a 60-year-old male who presents with chronic persistent back and leg pain after failing course of nonoperative care is here for surgical invention. Stage Allergies Allergy/AdvReac Type Severity Reaction Status Date / Time No Known Drug Allergies Allergy Verified 05/08/24 09:27 Home Medications Medication Instructions Recorded Confirmed Type finasteride 5 mg tablet (Proscar) 5 mg PO QAM #90 tabs 08/02/23 05/08/24 Rx diclofenac sodium 50 mg See Rx Instructions .Route 01/05/24 05/08/24 Rx tablet,delayed release .COMPLEX #30 tabs indapamide 2.5 mg tablet See Rx Instructions .Route 01/05/24 05/08/24 Rx .COMPLEX #90 tabs lisinopril 40 mg tablet See Rx Instructions .Route 01/05/24 05/08/24 Rx .COMPLEX #90 tabs omeprazole 20 mg capsule,delayed See Rx Instructions .Route 01/05/24 05/08/24 Rx release .COMPLEX #90 caps pramipexole 0.25 mg tablet 0.25 mg PO QPM PRN restless leg(s) 01/05/24 05/08/24 Rx #30 tabs tramadol 50 mg tablet 50 mg PO BID PRN pain, moderate 01/06/24 05/08/24 Rx #60 tabs aspirin 81 mg tablet,delayed See Rx Instructions .Route 03/30/24 05/08/24 Rx release .COMPLEX #90 tabs gabapentin 300 mg capsule 300 mg PO .COMPLEX #90 caps 04/11/24 05/08/24 Rx atorvastatin 80 mg tablet 80 mg PO QAM 04/18/24 05/08/24 History hydrocodone 10 mg-acetaminophen 1 tab PO BID PRN pain #60 tabs 05/03/24 05/08/24 Rx 325 mg tablet dicyclomine 10 mg capsule 10 mg PO TID PRN Abdominal Pain 05/08/24 05/08/24 History Past Med/Surg History Problem List Left lumbar radiculopathy Personal history of nicotine dependence Dermatitis of left ear canal Microscopic hematuria Hyperglycemia Dyslipidemia Hematuria BPH (benign prostatic hyperplasia) Urinary symptom or sign Ulnar neuropathy at elbow of left upper extremity Dupuytren's contracture of left hand Cellulitis first entered into EMR and last edited 05/21/22-patient denies more recent occurrence History of CVA (cerebrovascular accident) (12/2021) Hyponatremia Acquired deviated nasal septum Chronic sinusitis Osteitis Rhinitis Circadian rhythm sleep disorder, advanced sleep phase type Lower leg pain Irritable bowel syndrome (Acute) Restless legs syndrome (Acute) Atypical nevi ARIANA (obstructive sleep apnea) (Chronic) Lumbar spinal stenosis Lumbar radiculitis (Chronic) Hypertension (Chronic) Osteoarthritis (Chronic) Cervical disc disease Medical History Hard of hearing Emphysema/COPD Anemia Dilated aortic root Spinal stenosis Restless leg syndrome History of stroke (2021) Hypertension Hyperlipidemia BPH w urinary obs/LUTS Hiatal hernia Sleep apnea Internal hemorrhoids Seborrheic dermatitis Seborrheic keratosis GERD (gastroesophageal reflux disease) Surgical History History of lumbar fusion Hx of decompression of ulnar nerve Hx of vasectomy History of esophagogastroduodenoscopy (EGD) History of tooth extraction History of tonsillectomy Hx of colonoscopy (~2017) Status post cervical spinal fusion History of herniorrhaphy S/P arthroscopic knee surgery Family History Aunt Family history of diabetes mellitus Uncle Family history of diabetes mellitus Grandmother (Paternal) Family history of diabetes mellitus Grandfather (Paternal) Family history of diabetes mellitus Father Family history of diabetes mellitus Other No family history of adverse response to anesthesia Social History Smoking Status: Current every day smoker (-advised and surgeon's office notified) Tobacco Type: Cigarettes Smoking End Date: 11/2023; Second Hand Exposure: Yes (in the past); Do You Dip or Chew Tobacco: No; Hx Alcohol Use: No Hx Substance Use: No Preferred Language: Divehi Communication Ability: Effective Visual Impairment: No Limitations Hearing Ability: Normal Eyeletter Required: No Beliefs That Will Affect Care: None marital status: Current Living Situation: Spouse current occupational status: employed Feels Safe at Home: Yes Safety Concerns: Feels Safe At This Time Assistive Devices: CPAP and Glasses Assistive Devices Comment: partial upper plate Physical Exam Physical Exam: Patient is alert and oriented heart regular in rhythm lungs clear Results & Data Results & Data Vital Signs (Past 12 Hours) Vital Signs Temp Pulse Resp BP Pulse Ox O2 Del Method 05/08/24 09:25 36.8 C 69 18 143/105 H 97 Room Air
[2024-05-08] MEDS ORDERED: HYDROmorphone INJ 2 MG/ML SYR/VIAL ONE (10:45)
[2024-05-08] MEDS: ceFAZolin 2000MG 2,000 MG/15 ML SYR IV SCH ×2 (11:01→20:13)
[2024-05-08] MEDS: BUPIVACAINE/EPINEPHRINE 0.25% 1:200,000 30 ML VIAL ONE (11:28)
[2024-05-08] MEDS ORDERED: ePHEDrine sulfate 50 MG/ML AMP ONE (11:57)
[2024-05-08] MEDS ORDERED: PHENYLEPHRINE HCL 10 MG/ML VIAL ONE (12:06)
[2024-05-08] MEDS ORDERED: SUGAMMADEX SODIUM 200 MG/2 ML VIAL IV ONE (12:34)
[2024-05-08] MEDS ORDERED: ALBUMIN HUMAN 5% 12.5 GM/250 ML VIAL IV ONE ×2 (12:58→13:33)
[2024-05-08] MEDS: FLOSEAL HEMOSTATIC MATRIX 10ML TOP ONE (13:25)
[2024-05-08] MEDS: ceFAZolin 330 MG/ML 1 GM VIAL ONE (13:36)
--- NOTE | 2024-05-08 13:51 | Operative Report ---
Post Operative Report Pre & Post Diagnosis Operation Date: 05/08/24 10:30 Pre-Op Diagnosis: Lumbar spinal stenosis with neurogenic claudication Post-Op Diagnosis: Same I identified the patient and participated in the time-out.: Yes Procedure Operation Date: 05/08/24 10:30 Actual Procedures #1 removal of posterior instrumentation L3-L4. #2 exploration of fusion L3-L4. #3 lumbar decompression with bilateral medial facetectomies and foraminotomies L2-L3, L4-L5 and L5-S1. #4 posterior spinal fusion L2 L3-L4-L5 L5-S1. #5 placement posterior instrumentation L2-S1. #6 interbody fusion L4-L5 L5-S1. #7 placement of Spira 14 x 26 mm at L4-5 and 14 x 26 mm x 2 at L5-S1. #8 placement locally harvested morselized autograft in the posterior gutters. #9 placement infuse collagen sponge combined with Koros bone graft in the posterior lateral gutters and Morpheus bone graft interbody space. Surgeon Logan Arshad, Warehouse Team Leader Bhakti Dumont Estimated Blood Loss 950 Findings Consistent with Post-Op Diagnosis Specimens None Indications This is a 68-year-old male who presents problems diagnosis of failed course of nonoperative care is here for surgical invention. Description of Procedure Patient was met with identified informed consent obtained. Patient was then taken to the operative suite underwent intubation placed in a prone position on the Neri table on top of the Tigre frame. Operative promises well-padded eyes inspected to ensure no external pressure placed upon them. This point the lumbar spine was prepped and draped no sterile fashion. Sharp dissection with the assistance of Bovie cautery was performed down to and exposing the lamina and transverse processes of L2 the instrumentation at L3-L4 and the lamina transverse processes of L4-L5 and the sacral ala bilaterally. I then proceeded to move the hardware at L3-L4 bilaterally. Explored the fusion mass noting it to be mature and intact. And then performed a complete laminectomy L5 with bilateral medial facetectomies and foraminotomies followed by a complete laminectomy of L4 with bilateral medial facetectomies and foraminotomies lastly at decompression at L2 addressing all lateral recess and foraminal disease. Pedicle screws then placed L2 L3-L4-L5 and S1 levels bilaterally with assistance of fluoroscopy in the process sandeep contoured and placed. By way of transforaminal approach on the left a discectomy of L5-S1 was performed endplates guided to subcortical bleeding bone and a 14 x 26 mm spiral cage filled with Morpheus bone graft tapped in position. Then proceeded the right transforaminal region at L4-5. Again discectomy performed endplates guarded to subcortical mean bone and a second 14 x 26 mm spiral cage filled with Morpheus bone graft tapped in position. Lastly proceeded to L4-[address] of transforaminal approach on the left complete discectomy performed endplates guided to subcortical mean bone and a 14 x 26 mm spiral cage filled with Morpheus bone graft tapped in position. The rods were then locked in final position bilaterally. The transverse processes of L2-L3 L4-5 and sacral ala burred to subcortical bone. Infuse collagen sponge, with Koros and local autograft placed in the posterior gutters. 15 round TRISHA inserted. The incision was then closed with 1 Vicryl in the fascia 2-0 Vicryl subcutaneously and 4 Monocryl for final skin closure. Steri-Strips sterile dressing placed. Patient waken taken to PACU in stable condition. Please note spinal cord monitoring visualized at the procedure no changes noted. Lastly Bhakti Dumont was present at the entire surgeon while the patient positioning complex portions of the surgery and final skin closure. I attest to the content of the Intraoperative Record and any orders documented therein. Any exceptions are noted below.
--- NOTE | 2024-05-08 14:11 | Fluoroscopy Report ---
FL lumbar spine 2-3V CLINICAL HISTORY: L2-S1 DECOMPRESSION AND FUSION L3-L4 HW REMOVAL COMPARISON STUDY: None. FLUOROSCOPY TIME: 33 seconds FLUOROSCOPY IMAGES: 4 Ka,r: 13.5 mGy FINDINGS: Posterior decompression and fusion from L2 through S1 with pedicle screws and rods. The dagoberto dware appears intact. Disc spacers are in place. IMPRESSION: Fluoroscopic assistance as above. ACT 112: Negative or not required by law. Electronically signed by: Manoj Wilkerson M.D. 05/08/2024 2:10 PM
[2024-05-08] MEDS: fentaNYL citrate PF 100 MCG/2 ML VIAL IV PRN (14:43)
[2024-05-08] MEDS: KETOROLAC 30 MG/ML VIAL IV PRN (15:07)
--- NOTE | 2024-05-08 15:16 | Anesthesiology Progress Note ---
Date of Service May 08, 2024 Anesthesia Post Procedure Vital Signs Vital Signs: Temp Pulse Pulse Resp BP Pulse Ox O2 Del Method 05/08/24 15:10 81 13 112/84 98 Nasal Cannula 05/08/24 15:00 79 15 131/83 97 Room Air 05/08/24 14:50 85 16 120/83 95 Room Air 05/08/24 14:40 80 15 129/85 97 Room Air 05/08/24 14:30 79 8 L 132/84 98 Room Air 05/08/24 14:20 83 13 119/80 100 Oxymask 05/08/24 14:10 36.0 C L 84 8 L 136/88 100 Oxymask 05/08/24 09:25 36.8 C 69 18 143/105 H 97 Room Air O2 Flow Rate 05/08/24 15:10 2 05/08/24 15:00 05/08/24 14:50 05/08/24 14:40 05/08/24 14:30 05/08/24 14:20 10 05/08/24 14:10 10 05/08/24 09:25 Pain Intensity Left Lower Back: Pain Intensity: 6 Transfer of Care Handoff Completed per policy Notes Mental Status: alert / awake / arousable and participated in evaluation Patient Amnestic to Procedure: Yes Nausea / Vomiting: adequately controlled Pain: adequately controlled Airway Patency, RR, SpO2: stable & adequate BP & HR: stable & adequate Hydration State: stable & adequate Anesthetic Complications: no major complications apparent
[2024-05-08] MEDS ORDERED: DICYCLOMINE HCL 10 MG CAP PO PRN (16:08)
[2024-05-08] MEDS ORDERED: PROMETHAZINE HCL 12.5 MG in SODIUM CHLORIDE 0.9% 50 ML IV PRN (16:08)
[2024-05-08] MEDS ORDERED: ALUMINUM/MAGNESIUM SUSP 30 ML UDC PO PRN (16:08)
[2024-05-08] MEDS ORDERED: DO NOT ADMINISTER PNEUMOCOCCAL VACCINE PRN (16:08)
[2024-05-08] MEDS ORDERED: DO NOT ADMINISTER FLU VACCINE PRN (16:08)
[2024-05-08] MEDS ORDERED: LORazepam 0.5 MG TAB PO PRN (16:08)
[2024-05-08] MEDS ORDERED: ONDANSETRON 4 MG OD TAB PO PRN (16:08)
[2024-05-08] MEDS ORDERED: PRAMIPEXOLE DIHYDROCHLO 0.25 MG TAB PO PRN (16:08)
[2024-05-08] MEDS ORDERED: FAMOTIDINE 20 MG TAB PO PRN (16:08)
[2024-05-08] MEDS ORDERED: hydrOXYzine HCl 25 MG TAB PO PRN (16:08)
[2024-05-08] MEDS ORDERED: diphenhydrAMINE Capsule 25 MG CAP PO PRN (16:08)
[2024-05-08] MEDS ORDERED: ACETAMINOPHEN 1,000 MG/100 ML VIAL IV PRN (16:08)
[2024-05-08] MEDS ORDERED: NALOXONE HCL 0.4 MG/1 ML VIAL/CARP IV PRN (16:08)
[2024-05-08] MEDS ORDERED: METOCLOPRAMIDE HCL INJ 5 MG/ML 2 ML VIAL IV PRN (16:08)
[2024-05-08] MEDS ORDERED: LORazepam 0.5 MG in SYRINGE 0.25 ML IV PRN (16:08)
[2024-05-08] MEDS ORDERED: SOD PHOSPHATE/SOD BIPHOSPHATE ENEMA 132 ML BTL PR PRN (16:08)
[2024-05-08] MEDS ORDERED: HYDROmorphone INJ 0.5 MG/0.5 ML SYR IV PRN (16:08)
[2024-05-08] MEDS: oxyCODONE HCL IR 5 MG TAB (IMMEDIATE RELEASE) PO PRN (16:30)
[2024-05-08] MEDS: HYDROmorphone INJ 1 MG/ML SYRINGE IV PRN (18:01)
[2024-05-08] MEDS: LACTATED RINGER'S 1,000 ML IV SCH (18:06)
[2024-05-08] MEDS: ACETAMINOPHEN 1,000 MG/100 ML VIAL IV STA (19:25)
[2024-05-08] MEDS: HYDROmorphone INJ 1 MG/ML SYRINGE ONE (19:25)
[2024-05-08] MEDS: DOCUSATE SODIUM/SENNA 50/8.6MG TAB PO SCH (20:13)
[2024-05-08] MEDS: traMADol HCL 50 MG TABLET PO PRN (20:27)
[2024-05-09] MEDS: POLYETHYLENE (MIRALAX) 17 GM PACK PO SCH (06:00)
[2024-05-09 07:01] LABS: Basophils # (auto) 0.02 K/uL (0.00-0.20); Basophils % (auto) 0.2 %; Eosinophils # (auto) 0.03 K/uL (0.00-0.50); Eosinophils % (auto) 0.3 %; Hematocrit (blood only) 25.3 % (42.0-52.0); Hemoglobin 8.7 g/dl (14.0-18.0); Immature Granulocytes # (auto) 0.05 K/uL (0.01-0.20); Immature Granulocytes % (auto) 0.5 %; Lymphocytes # (auto) 1.06 K/uL (1.20-3.40); Lymphocytes % (auto) 11.5 %; Mean Corpuscular Hemoglobin 30.2 pg (25.0-34.0); Mean Corpuscular Hgb Conc 34.4 g/dL (32.0-36.0); Mean Corpuscular Volume 87.8 fL (80.0-100.0); Mean Platelet Volume 11.2 fL (9.4-12.4); Monocytes % (auto) 9.8 %; Neutrophils # (auto) 7.17 K/uL (1.40-6.50); Neutrophils % (auto) 77.7 %; Platelet Count 126 K/uL (130-400); RDW Coefficient of Variation 12.5 % (11.5-14.5); RDW Standard Deviation 40.4 fL (36.4-46.3); Red Blood Count 2.88 M/uL (4.70-6.10); White Blood Count 9.23 K/ul (4.8-10.8)
[2024-05-09 07:35] LABS: BUN Creatinine Ratio 22.5 (10-20); Calcium 8.1 mg/dl (8.6-10.3); Creatinine Clr Calc Pharmacy 78.3 ml/min; Est GFR (African American) 87.1 ml/min; Est GFR (Non-African American) 75.2 ml/min; Potassium 4.3 mmol/L (3.5-5.1)
[2024-05-09] MEDS: INDAPAMIDE 1.25 MG TAB PO SCH (07:57)
[2024-05-09] MEDS: PANTOprazole 40 MG TAB PO SCH (07:57)
[2024-05-09] MEDS: FINASTERIDE 5 MG TAB PO SCH (07:58)
[2024-05-09] MEDS: lisinopril 40 MG TAB PO SCH (07:58)
[2024-05-09] MEDS: ATORVASTATIN 40 MG TAB PO SCH (07:58)
--- NOTE | 2024-05-09 08:24 | Orthopedic Progress Note ---
Date of Service May 09, 2024 Assessment & Plan (1) Left lumbar radiculopathy: Plan: At this time we will initiate physical therapy monitor his TRISHA operatively discharged home next few days. Admission and Anticipated Discharge Date Admission Date: May 08, 2024 Subjective Back pain controlled leg pain markedly improved Physical Exam Physical Exam: Patient is sitting up at the bedside. He is comfortable at this time. Skin strength testing. Results & Data Vital Signs (Past 12 Hours) Vital Signs Temp Pulse Resp BP Pulse Ox O2 Del Method 05/09/24 07:12 36.5 C 71 18 127/77 96 Room Air 05/09/24 03:49 36.7 C 85 18 135/84 97 Room Air 05/08/24 22:44 36.8 C 85 16 95/64 L 98 Room Air Queries Orthopedic Spine Acute Posthemorrhagic Anemia: Yes
--- NOTE | 2024-05-09 08:44 | Hospitalist Consultation ---
Date of Consultation May 09, 2024 Assessment & Plan (1) Left lumbar radiculopathy: s/p #1 removal of posterior instrumentation L3-L4. #2 exploration of fusion L3- L4. #3 lumbar decompression with bilateral medial facetectomies and foraminotomies L2-L3, L4-L5 and L5-S1. #4 posterior spinal fusion L2 L3-L4-L5 L5-S1. #5 placement posterior instrumentation L2-S1. #6 interbody fusion L4-L5 L5-S1. #7 placement of Spira 14 x 26 mm at L4-5 and 14 x 26 mm x 2 at L5-S1. #8 placement locally harvested morselized autograft in the posterior gutters. #9 placement infuse collagen sponge combined with Koros bone graft in the posterior lateral gutters and Morpheus bone graft interbody space. on 05/[address] Arshad WBC wnl , afebrile Hgb 13.8--> 9.8 -Acute blood loss anemia from surgery as well as some aspect of dilution from IVF. -EBL per OP report 950cc, TRISHA output 940cc thus far - continue to monitor as does have decent output Given indapamide this morning, will hold for now.Did have some lightheadedness reported, RN to check orthostatics. If positive, can provide additional IVF if needed CPAP ordered for tonight, compliance encouraged Gabapentin placed on hold as patient reports they back him up/not helpful Bowel regimen encouraged, has been 4-5days since last bowel movement. May req suppository Post-op management per primary service Monitor labs/TRISHA output on repeat (2) Sleep apnea: CPAP ordered, compliance encouraged given hx CVA (3) Hypertension: Remains on lisinopril, indapamide given this morning but placed on hold as above Orthostatic VS to be obtained, BP presently 127/77 (4) Anemia: as above, acute on chronic due to blood loss/TRISHA output. Monitor TRISHA output/CBC in AM Aspirin continued given hx thalamic CVA per primary service (5) Emphysema/COPD: quit smoking, on room air, no SOB/sputum reported. Does have nicotine gum/lozenges incentive spirometry encouraged monitor for any issues CPAP encouraged as above Plan Thank you for allowing hospitalist service to participate in the care of Mr Cool. Hospitalist service will follow along. Please call with any questions/concerns. Supervising Physician Co-Signing Physician Notes The patient was seen by me. The chart was reviewed. Case discussed with ASHLEE Boone. Agree with assessment and plan History of Present Illness Reason for Consultation: medical management Requesting Physician: Dr Arshad Attending Physician: Logan Arshad, DO History of Present Illness 68yo male presented with PMHx DJD, HTN, GERD< IBS, anemia, hematuria, COPD, mild sleep apnea, advanced sleep phase syndrome, R thalamic infarct (recovered other than some sensory chnges in L hand), emphysema presented for lumbar decompression/fusion and hardware removal with Dr Arshad 05/08. Patient reports feeling better than when he came in but has not yet been out of bed. Reports trying to get up to side of the bed this morning as he thought he needed to move his bowels but was a little lightheaded and put back to bed. Was already given his indapamide, TRISHA drain emptied this morning. Will hold further diuretics, ask nursing to check orthostatics. Patient reports not having moved bowels for 4-5 days, is passing some gas this morning and given miralax by primary. He denies any CP/SOB, anticipates discharge on per discussion with Dr Arshad and patient this morning. Does not have his CPAP w/ him, discussed usage juan post-op. He hasn't gotten good sleep. Encouraged to bring in, will place order to use home unit but if any issues we can provide. Questions/concerns addressed at this time. Allergies Allergy/AdvReac Type Severity Reaction Status Date / Time No Known Drug Allergies Allergy Verified 05/08/24 09:27 Home Medications Medication Instructions Recorded Confirmed Type finasteride 5 mg tablet (Proscar) 5 mg PO QAM #90 tabs 08/02/23 05/08/24 Rx diclofenac sodium 50 mg See Rx Instructions .Route 01/05/24 05/08/24 Rx tablet,delayed release .COMPLEX #30 tabs indapamide 2.5 mg tablet See Rx Instructions .Route 01/05/24 05/08/24 Rx .COMPLEX #90 tabs lisinopril 40 mg tablet See Rx Instructions .Route 01/05/24 05/08/24 Rx .COMPLEX #90 tabs omeprazole 20 mg capsule,delayed See Rx Instructions .Route 01/05/24 05/08/24 Rx release .COMPLEX #90 caps pramipexole 0.25 mg tablet 0.25 mg PO QPM PRN restless leg(s) 01/05/24 05/08/24 Rx #30 tabs tramadol 50 mg tablet 50 mg PO BID PRN pain, moderate 01/06/24 05/08/24 Rx #60 tabs aspirin 81 mg tablet,delayed See Rx Instructions .Route 03/30/24 05/08/24 Rx release .COMPLEX #90 tabs gabapentin 300 mg capsule 300 mg PO .COMPLEX #90 caps 04/11/24 05/08/24 Rx atorvastatin 80 mg tablet 80 mg PO QAM 04/18/24 05/08/24 History hydrocodone 10 mg-acetaminophen 1 tab PO BID PRN pain #60 tabs 05/03/24 05/08/24 Rx 325 mg tablet dicyclomine 10 mg capsule 10 mg PO TID PRN Abdominal Pain 05/08/24 05/08/24 History Patient History Medical History Hard of hearing Emphysema/COPD patient unsure-no inhalers Anemia pt denies Dilated aortic root Spinal stenosis Restless leg syndrome History of stroke (2021) 2021>no deficits Hypertension controlled, stable per pt Hyperlipidemia BPH w urinary obs/LUTS Hiatal hernia Sleep apnea CPAP-compliant Internal hemorrhoids pt denies recent issues Seborrheic dermatitis Seborrheic keratosis GERD (gastroesophageal reflux disease) controlled, stable per pt Surgical History History of lumbar fusion L3-4 level April 2021 Hx of decompression of ulnar nerve rt/left Hx of vasectomy History of esophagogastroduodenoscopy (EGD) History of tooth extraction History of tonsillectomy Hx of colonoscopy (~2017) Status post cervical spinal fusion C3-C4 ACDF with left iliac crest bone graft (05/23/18): Grade 2 view, Glidescope #4.0, ETT 8.0 at [facility] History of herniorrhaphy inguinal S/P arthroscopic knee surgery ? side Family History Aunt Family history of diabetes mellitus Uncle Family history of diabetes mellitus Grandmother (Paternal) Family history of diabetes mellitus Grandfather (Paternal) Family history of diabetes mellitus Father Family history of diabetes mellitus Other No family history of adverse response to anesthesia Social History Smoking Status: Former smoker Tobacco Type: Cigarettes Smoking End Date: 11/2023; Second Hand Exposure: Yes (in the past); Do You Dip or Chew Tobacco: No; Tobacco Cessation Education Requested by Patient: Yes Hx Alcohol Use: No Hx Substance Use: No Preferred Language: Latvian Communication Ability: Effective Visual Impairment: No Limitations Hearing Ability: Normal Health And Fitness Instructor Required: No Beliefs That Will Affect Care: None marital status: Current Living Situation: Spouse current occupational status: employed Feels Safe at Home: Yes Safety Concerns: Feels Safe At This Time Assistive Devices: CPAP Assistive Devices Comment: partial upper plate Physical Exam Physical Exam: General: 68yo male sitting up in bed, /grandchildren in room, NAD Head atraumatic, normocephalic, mmm, trachea midline Resp: even/unlabored, diminished in the bases, on room air CV: RRR, no significant m/r/g, no pitting edema GI:+BS, slight distension, nontender : key draining clear yellow urine MSK/Neuro: Dressing to lumbar spine c/d/i, TRISHA w/ bloody drainage, NVI, dorsiflexion/plantar flexion intact ,calves nontender, pulses palpable Psych: AOx3, cooperative Results & Data Results & Data Vital Signs (Past 12 Hours) Vital Signs Temp Pulse Resp BP Pulse Ox O2 Del Method 05/09/24 07:12 36.5 C 71 18 127/77 96 Room Air 05/09/24 03:49 36.7 C 85 18 135/84 97 Room Air 05/08/24 22:44 36.8 C 85 16 95/64 L 98 Room Air Laboratory Results 05/09/24 05/08/24 Range/Units 06:02 09:48 WBC 9.23 (4.8-10.8) K/ul RBC 2.88 L (4.70-6.10) M/uL Hgb 8.7 L (14.0-18.0) g/dl Hct 25.3 L (42.0-52.0) % MCV 87.8 (80.0-100.0) fL MCH 30.2 (25.0-34.0) pg MCHC 34.4 (32.0-36.0) g/dL RDW Std Deviation 40.4 (36.4-46.3) fL RDW Coeff of Jose 12.5 (11.5-14.5) % Plt Count 126 L (130-400) K/uL MPV 11.2 (9.4-12.4) fL Immature Gran % (Auto) 0.5 % Neut % (Auto) 77.7 % Lymph % (Auto) 11.5 % [place] % (Auto) 9.8 % Eos % (Auto) 0.3 % Baso % (Auto) 0.2 % Neut # (Auto) 7.17 H (1.40-6.50) K/uL Lymph # (Auto) 1.06 L (1.20-3.40) K/uL [place] # (Auto) 0.90 H (0.11-0.59) K/uL Eos # (Auto) 0.03 (0.00-0.50) K/uL Baso # (Auto) 0.02 (0.00-0.20) K/uL Immature Gran # (Auto) 0.05 (0.01-0.20) K/uL Sodium 131 L (136-145) mmol/L Potassium 4.3 (3.5-5.1) mmol/L Chloride 98 (98-107) mmol/L Carbon Dioxide 28 (21-32) mmol/L Anion Gap 5 (3-11) BUN 23 (6-23) mg/dl Creatinine 1.02 (0.6-1.4) mg/dl Est Cr Clr Drug Dosing 78.3 ml/min Est GFR ( Amer) 87.1 ml/min Est GFR (Non-Af Amer) 75.2 ml/min BUN/Creatinine Ratio 22.5 H (10-20) Glucose 104 H (70-99(Fasting)) mg/dl Calcium 8.1 L (8.6-10.3) mg/dl Blood Type O Positive Antibody Screen NEGATIVE Crossmatch See Detail Diagnostic Findings Lumbar Spine X-Ray 05/08/24 10:30 FL lumbar spine 2-3V CLINICAL HISTORY: L2-S1 DECOMPRESSION AND FUSION L3-L4 HW REMOVAL COMPARISON STUDY: None. FLUOROSCOPY TIME: 33 seconds FLUOROSCOPY IMAGES: 4 Ka,r: 13.5 mGy FINDINGS: Posterior decompression and fusion from L2 through S1 with pedicle screws and rods. The hardware appears intact. Disc spacers are in place. IMPRESSION: Fluoroscopic assistance as above. ACT 112: Negative or not required by law. Electronically signed by: Manoj Wilkerson M.D. 05/08/2024 2:10 PM PG Care Time/CCT Total # of Minutes Spent Total Time Spent with Patient: Total time spent is greater than 50% in coordination of care (as documented) at patient's floor/unit and/or counseling patient: Coding Level of Care Code 65042 IN/OBS CONSULT LVL 3,45M Diagnoses Left lumbar radiculopathy M54.16 Sleep apnea G47.30 Hypertension I10 Anemia D64.9 Emphysema/COPD J43.9
[2024-05-09] MEDS: ASPIRIN 81 MG ECTAB PO SCH (09:49)
[2024-05-09] MEDS: dexAMETHasone 6 MG in SYRINGE 0 ML IV SCH (09:50)
[2024-05-10] MEDS: ACETAMINOPHEN 500 MG TAB PO PRN (04:45)
[2024-05-10 07:33] LABS: Calcium 8.3 mg/dl (8.6-10.3); Creatinine Clr Calc Pharmacy 89.8 ml/min; Est GFR (African American) 101.8 ml/min; Est GFR (Non-African American) 87.9 ml/min; Magnesium 1.6 mg/dl (1.7-2.4); Potassium 3.7 mmol/L (3.5-5.1)
[2024-05-10 07:43] LABS: Hematocrit (blood only) 25.1 % (42.0-52.0); Hemoglobin 8.6 g/dl (14.0-18.0); Mean Corpuscular Hemoglobin 29.8 pg (25.0-34.0); Mean Corpuscular Hgb Conc 34.3 g/dL (32.0-36.0); Mean Corpuscular Volume 86.9 fL (80.0-100.0); Mean Platelet Volume 11.4 fL (9.4-12.4); Platelet Count 124 K/uL (130-400); RDW Coefficient of Variation 12.7 % (11.5-14.5); RDW Standard Deviation 40.4 fL (36.4-46.3); Red Blood Count 2.89 M/uL (4.70-6.10)
--- NOTE | 2024-05-10 08:11 | Hospitalist Progress Note ---
Date of Service May 10, 2024 Assessment & Plan (1) Left lumbar radiculopathy: Plan: s/p #1 removal of posterior instrumentation L3-L4. #2 exploration of fusion L3- L4. #3 lumbar decompression with bilateral medial facetectomies and foraminotomies L2-L3, L4-L5 and L5-S1. #4 posterior spinal fusion L2 L3-L4-L5 L5-S1. #5 placement posterior instrumentation L2-S1. #6 interbody fusion L4-L5 L5-S1. #7 placement of Spira 14 x 26 mm at L4-5 and 14 x 26 mm x 2 at L5-S1. #8 placement locally harvested morselized autograft in the posterior gutters. #9 placement infuse collagen sponge combined with Koros bone graft in the posterior lateral gutters and Morpheus bone graft interbody space on 05/[address] Arshad WBC wnl, afebrile Hgb 13.8--> 8.7--> 8.6. Acute blood loss anemia from surgery suspected, some aspect of dilution from IVF as well. No CP/SOB or lightheaded/dizziness reported for today. Orthostatics day prior acceptable and BP/renal function stable Post-op management per primary service, strongly encourage bowel regimen, may req suppository as did report ~4-5days prior to admission since last bowel movement. Gabapentin placed on hold as reports backs him up. CPAP ordered (asked to bring in) and encouraged compliance, is in room Mag 1.6- 2gm IV ordered PT/OT consulted Dispo per primary service (2) Sleep apnea: Plan: CPAP ordered, compliance encouraged given hx CVA (3) Hypertension: Plan: BP stable, renal function stable Continued lisinopril, indapamide resumed (4) Anemia: Plan: as above, acute on chronic due to blood loss/TRISHA output. Aspirin continued given hx thalamic CVA per primary service (5) Emphysema/COPD: Plan: quit smoking, on room air, no SOB/sputum reported. Does have nicotine gum/lozenges incentive spirometry encouraged monitor for any issues CPAP encouraged as above (6) Hypomagnesemia: Plan: 1.6, 2gm IV ordered Plan Thank you for allowing hospitalist service to participate in the care of Mr Cool. Hospitalist service will sign off at ths time. Please call with any questions/concerns. Admission and Anticipated Discharge Date Admission Date: May 08, 2024 Supervising Physician Co-Signing Physician Notes The patient was not seen by me. The chart was reviewed. Case discussed with ASHLEE Boone. Agree with assessment and plan Subjective Evaluated this morning, laying on his side. Reporting feeling poorly today but leg symptoms controlled but having increased incisional pain . TRISHA w/ issues last night, Dr Arshad notified.Has not been seen yet this morning but discussed messaging him regarding incision. Encouaraged suppository use, he denied yesterday. No CP/SOB reported, just having difficulty getting comfortable in bed and reporting wanting to get washed up when his comes. Questions/concerns addressed at this time Physical Exam Physical Exam: General: 68yo male laying on side in bed, NAD but reporting feeling poorly, waiting for Dr Arshad to see him Head atraumatic, normocephalic, mmm, trachea midline Resp: even/unlabored, diminished in the bases, on room air CV: RRR, no significant m/r/g, no pitting edema GI:+BS, slight distension, nontender : key draining clear yellow urine MSK/Neuro: Dressing to lumbar spine with shadowing, dried blood, TRISHA not holding suction but b/l strength testing wnl, dorsiflexion/plantar flexion intact ,calves nontender, pulses palpable Psych: AOx3, cooperative Results & Data Results & Data Vital Signs (Past 12 Hours) Vital Signs Temp Pulse Pulse Resp BP Pulse Ox O2 Del Method 05/10/24 07:35 36.9 C 104 H 18 121/81 98 Room Air 05/10/24 07:35 36.4 C L 84 20 102/64 98 Room Air 05/09/24 22:54 36.5 C 78 16 106/67 95 Room Air 05/09/24 20:27 Room Air, CPAP Laboratory Results 05/10/24 Range/Units 06:24 WBC 8.80 (4.8-10.8) K/ul RBC 2.89 L (4.70-6.10) M/uL Hgb 8.6 L (14.0-18.0) g/dl Hct 25.1 L (42.0-52.0) % MCV 86.9 (80.0-100.0) fL MCH 29.8 (25.0-34.0) pg MCHC 34.3 (32.0-36.0) g/dL RDW Std Deviation 40.4 (36.4-46.3) fL RDW Coeff of Jose 12.7 (11.5-14.5) % Plt Count 124 L (130-400) K/uL MPV 11.4 (9.4-12.4) fL Sodium 133 L (136-145) mmol/L Potassium 3.7 (3.5-5.1) mmol/L Chloride 98 (98-107) mmol/L Carbon Dioxide 30 (21-32) mmol/L Anion Gap 5 (3-11) BUN 16 (6-23) mg/dl Creatinine 0.89 (0.6-1.4) mg/dl Est Cr Clr Drug Dosing 89.8 ml/min Est GFR ( Amer) 101.8 ml/min Est GFR (Non-Af Amer) 87.9 ml/min BUN/Creatinine Ratio 18.0 (10-20) Glucose 105 H (70-99(Fasting)) mg/dl Calcium 8.3 L (8.6-10.3) mg/dl Magnesium 1.6 L (1.7-2.4) mg/dl PG Care Time/CCT Total # of Minutes Spent Total Time Spent with Patient: Total time spent is greater than 50% in coordination of care (as documented) at patient's floor/unit and/or counseling patient: Coding Level of Care Code 93678 SUB INP/OBS CARE 2/35MIN Diagnoses Left lumbar radiculopathy M54.16 Sleep apnea G47.30 Hypertension I10 Anemia D64.9 Emphysema/COPD J43.9 Hypomagnesemia E83.42
--- NOTE | 2024-05-10 09:33 | Orthopedic Progress Note ---
Date of Service May 10, 2024 Assessment & Plan (1) Left lumbar radiculopathy: Plan: At this point we will continue physical therapy. His TRISHA drain is not holding suction but there is passive drainage. Will consider possible discharge tomorrow. Admission and Anticipated Discharge Date Admission Date: May 08, 2024 Subjective Back pain controlled leg pain improved Physical Exam Physical Exam: Patient is up and ambulating. Is good strength testing. Results & Data Vital Signs (Past 12 Hours) Vital Signs Temp Pulse Pulse Resp BP Pulse Ox O2 Del Method 05/10/24 07:35 36.9 C 104 H 18 121/81 98 Room Air 05/10/24 07:35 36.4 C L 84 20 102/64 98 Room Air 05/09/24 22:54 36.5 C 78 16 106/67 95 Room Air Queries Orthopedic Spine Acute Posthemorrhagic Anemia: Yes
[2024-05-10] MEDS: MAGNESIUM SULFATE / D5W 1 GM/100 ML BAG IV SCH (09:43)
[2024-05-10] MEDS: MAGNESIUM HYDROXIDE SUSP 30 ML UDC PO PRN (18:03)
[2024-05-11] MEDS: bisacodyL 10 MG SUPP PR PRN (05:31)
--- NOTE | 2024-05-11 11:01 | Discharge Summary ---
Date of Service May 11, 2024 Admission HPI Per Admitting Provider This is a 60-year-old male who presents with chronic persistent back and leg pain after failing course of nonoperative care is here for surgical invention. Stage Principal Diagnosis Lumbar spinal stenosis with radiculopathy Discharge Data Allergies Allergy/AdvReac Type Severity Reaction Status Date / Time No Known Drug Allergies Allergy Verified 05/08/24 09:27 Consultations 05/08/24 16:08 Consult Hospitalist Routine Procedures Performed Operation Date: 05/08/24 10:30 Actual Procedures p L2-S1 Decompression and Fusion, with Spinal Cord Monitoring(Not Applicable) - Logan Arshad DO s L3-L4 Hardware Removal(Not Applicable) - Logan Arshad DO Ordered Studies 05/08/24 10:30 FL lumbar spine 2-3V Routine Hospital Course (1) Left lumbar radiculopathy: Patient went multilevel lumbar decompression fusion tolerated as well as taken to orthopedic for postoperative. Postop he progressed appropriate. Leg symptoms markedly improved. Pain well-controlled. Excellent strength testing. Subsidy discharged home. Discharge orders instructions from the chart for further review. Total Time Total Time Spent Total Time Spent (In Minutes): 20 minutes Discharge Plan Discharge Items Patient Disposition: Home - Self-Care Reason For Visit: Foraminal Stenosis of Lumbar Region, Left Lumbar R Discharge Diagnosis: Lumbar spinal stenosis with radiculopathy Activity: As commented below Non-emergency contact: Primary Care Provider Call non-emergency contact if: you have any medication questions Follow-up/Referrals: Burton Nolasco MD [Primary Care Provider] - Diet: Regular Addtl Attending Provider Instructions: ACTIVITY RECOMMENDATIONS: SELF CARE INSTRUCTIONS AFTER CERVICAL FUSIONS 1. No smoking. Smoking drastically decreases the chance of a solid fusion. 2. No bending, lifting more than 5 pounds, or twisting (roll like a log when turning in bed). 3. You may shower 3 days after surgery. Thoroughly dry wound. Do not soak in the tub. 4. Cervical collar: Must be worn at all times including sleeping. You may remove the brace only to bath, eat and if you are sitting in a recliner. 5. Please walk as much as you can for exercise. Gradually increase the distance that you walk as your endurance increases. SPECIAL CARE INSTRUCTIONS: VERY IMPORTANT TO READ AND REVIEW A. Do not take any anti-inflammatory medications (i.e. Indocin, Advil, Aspirin, Naprosyn, Aleve, Motrin, etc.) as these may inhibit the chance of a solid fusion. Tylenol is okay to take. B. Your surgical incision has been closed with a cosmetic suture under the skin that will dissolve in about 6 weeks. In 14 days, you can use a pair of clean scissors and cut the suture that is left outside of the skin at the ends of your incision. C. Complications are uncommon, but please contact us if you have any signs or symptoms of: 1. wound infection (fever higher than 102.5 degrees F, redness, separation of wound, drainage, or increasing pain from the incision) 2. blood clots in legs (pain, swelling, redness and warmth in legs) 3. urinary tract infection (fever higher than 102.5 degrees, burning upon urination or increased frequency of urination) 4. nerve problems (inability to walk on your toes or heels, numbness, loss of bowel or bladder control) 5. any other symptoms that concern you. D. Please call the office at if you have any concerns or questions about your operation or recovery. MANAGING PAIN AFTER SPINAL SURGERY 1. Narcotic medication is intended for short-term use and will be provided for surgical pain. Surgical pain usually lasts for a period of 4-6 weeks. Narcotic medication includes Percocet, Vicodin, Darvocet, Tylenol #3 or Lortab. 2. Longer-term pain is more appropriately treated with non-narcotic medication such as Tylenol ES. 3. Muscle spasm is not appropriately treated with narcotics. Muscle relaxers such as Soma, Flexeril or Skelaxin can be used along with Tylenol ES. 4. Remember that we all live with some "aches and pains". This is not unusual or uncommon after an injury or as we get older. 5. We will provide appropriate medication within the normal guidelines of their prescribed use. We will also be very cautious and aware of potential abuse and extended duration of patients' medication needs. 6. Please allow 2-3 days to process refills. Prescriptions will not be mailed but must be picked up at the office. FOLLOW UP VISIT: Keep your scheduled follow-up appointment. Any questions, please call the office at . Pending Studies at Discharge: No Stand-Alone Forms: My [facility], Smoking Cessation Medications and DC Order Prescriptions: New tramadol 50 mg tablet 50 mg PO Q6H PRN (Reason: pain, moderate) Qty: 30 0RF oxycodone 5 mg tablet 5 mg PO Q6H PRN (Reason: pain) Qty: 30 0RF Continued gabapentin 300 mg capsule 300 mg PO .COMPLEX Qty: 90 2RF Patient Comments: currently on bid cycle Rx Instructions: 300 mg PO 1 PO qhs x5 days, then BID x5 days, then TID; indapamide 2.5 mg tablet See Rx Instructions .ROUTE .COMPLEX Qty: 90 3RF Dose Instruction: TAKE 1 TAB BY MOUTH EVERY MORNING Rx Instructions: TAKE 1 TAB BY MOUTH EVERY MORNING lisinopril 40 mg tablet See Rx Instructions .ROUTE .COMPLEX Qty: 90 3RF Dose Instruction: TAKE 1 TABLET BY MOUTH EVERY MORNING Rx Instructions: TAKE 1 TABLET BY MOUTH EVERY MORNING omeprazole 20 mg capsule,delayed release(DR/EC) See Rx Instructions .ROUTE .COMPLEX Qty: 90 3RF Dose Instruction: TAKE 1 CAPSULE BY MOUTH IN THE MORNING Rx Instructions: TAKE 1 CAPSULE BY MOUTH IN THE MORNING pramipexole 0.25 mg tablet 0.25 mg PO QPM PRN (Reason: restless leg(s)) Qty: 30 5RF Rx Instructions: administer 2 - 3 hours before bedtime tramadol 50 mg tablet 50 mg PO BID PRN (Reason: pain, moderate) Qty: 60 5RF aspirin 81 mg tablet,delayed release (DR/EC) See Rx Instructions .ROUTE .COMPLEX Qty: 90 3RF Dose Instruction: TAKE 1 TABLET BY MOUTH EVERY DAY IN THE MORNING Rx Instructions: TAKE 1 TABLET BY MOUTH EVERY DAY IN THE MORNING hydrocodone-acetaminophen 10-325 mg tablet 1 tab PO BID PRN (Reason: pain) Qty: 60 0RF finasteride [Proscar] 5 mg tablet 5 mg PO QAM Qty: 90 3RF atorvastatin 80 mg tablet 80 mg PO QAM dicyclomine 10 mg capsule 10 mg PO TID PRN (Reason: Abdominal Pain) Rx Instructions: as needed Discontinued diclofenac sodium 50 mg tablet,delayed release (DR/EC) See Rx Instructions .ROUTE .COMPLEX Qty: 30 11RF Dose Instruction: TAKE 1 TABLET BY MOUTH EVERY MORNING Rx Instructions: TAKE 1 TABLET BY MOUTH EVERY MORNING Discharge Orders: Discharge Order (Routine); Ordered 05/11/24 Ordered By: Logan Arshad Admission Data Admit Date/Time: 05/08/24 15:58 Attending Provider: Logan Arshad Admit Provider: Logan Arshad Primary Care Provider: Burton Nolasco Other Providers: Lonnie Campbell
== END 2024-05-11 13:47 | disposition home or self-care (01) | DRG 454 ==
LOC: ASU 08:57 → PACUINP 15:58 → 3E 16:15